=== PATIENT | female | born 1960 | race Two or more races ===

== ENCOUNTER → 2023-05-18 | Emergency (ER) | payer MEDICARE, OTHER ==
[~2023-05-18] VITALS: Ht 157.5 cm; Wt 95.2 kg
[~2023-05-18] MED LIST: PERCOT PO
[2023-05-18 19:30] VITALS: BP 144/76
== END | disposition home or self-care (01) ==
LOC: ER 19:24
DX: G89.29 Other chronic pain (principal); M54.50 Low back pain, unspecified; Z88.2 Allergy status to sulfonamides; Z76.0 Encounter for issue of repeat prescription

== ENCOUNTER 2024-07-05 20:14 | Inpatient (IN) | payer MEDICARE, OTHER ==
[~2024-07-05] VITALS: Ht 157.5 cm; Wt 102.0 kg
[2024-07-05 21:00] VITALS: PULSE 101; RESP 11; O2SAT 100
[2024-07-05 21:16] LABS: Hemoglobin 13.9 g/dL (12.2-16.2); Monocytes # (auto) 0.8 10 ^3/uL (0-1.3); Nucleated Red Blood Cells % 0.1 %
[2024-07-05 21:18] LABS: Basophils # (auto) 0.3 10 ^3/uL (0-0.2); Basophils % (auto) 2.2 % (0.0-2.0); Eosinophils # (auto) 0.3 10 ^3/uL (0-0.8); Eosinophils % (auto) 2.1 % (0.0-7.0); Hematocrit 41.6 % (36.0-46.0); Lymphocytes # (auto) 3.3 10 ^3/uL (0.4-5.4); Lymphocytes % (auto) 25.2 % (10.0-50.0); Mean Corpuscular Hemoglobin 26.4 pg (28.0-32.0); Mean Corpuscular Hgb Conc. 33.5 g/dL (32.0-36.0); Mean Corpuscular Volume 78.7 fL (80.0-100.0); Monocytes % (auto) 6.1 % (0.0-12.0); Neutrophils # (auto) 8.5 10 ^3/uL (1.6-8.6); Neutrophils % (auto) 64.4 % (37.0-80.0); Red Blood Cells 5.28 10^6/uL (4.0-5.20); Red Cell Distribution Width 15.5 % (11.8-14.3); White Blood Cell 13.3 10^3/uL (4.4-10.8)
[2024-07-05 21:36] LABS: Alanine Aminotransferase 26 U/L (7-40); Albumin 4.2 g/dL (3.2-4.8); Alkaline Phosphatase 210 U/L (46-116); Anion Gap 13 (5-15); Aspartate Aminotransferase 18 U/L (13-40); BUN/Creatinine Ratio 12.2 (10.0-20.0); Blood Urea Nitrogen 19 mg/dL (9-23); Carbon Dioxide 19 mmol/L (20-30); Chloride 104 mmol/L (98-107); Glucose 210 mg/dL (74-106); Potassium 3.5 mmol/L (3.5-5.1); Sodium 136 mmol/L (136-145)
[2024-07-05] MEDS: FUROSEMIDE 40 MG/4 ML VIAL IV ONE (21:36)
[2024-07-05 21:37] LABS: Bilirubin, Total 0.3 mg/dL (0.2-1.0); Total Protein 6.6 g/dL (5.7-8.2)
[2024-07-05] MEDS: ALBUTEROL SULF 2.5 MG/0.5ML(0.5%) NEB SOLN NEB ONE (22:23)
[2024-07-05] MEDS ORDERED: DEXTROSE (50%) 50ML SYRG IV PRN (23:00)
[2024-07-05] MEDS: cefTRIAXone 1GM/50ML D5W 50 ML IV ONE (23:00)
[2024-07-05] MEDS ORDERED: DOCUSATE SOD 100 MG CAP PO PRN (23:00)
[2024-07-05] MEDS ORDERED: ONDANSETRON HCL 4 MG/2 ML VIAL IV PRN (23:00)
[2024-07-06] VITALS (14 sets, daily range): BP systolic 101–191; BP diastolic 53–130; PULSE 76–108; RESP 17–20; TEMP 97.6–98.6; O2SAT 95–99
[2024-07-06] MEDS ORDERED: NITROGLYCERIN 0.4 MG SL TAB SL PRN
[2024-07-06] MEDS: hydrALAZINE HCL 20 MG/ML VL IV PRN (00:05)
[2024-07-06] MEDS: InsuLIN REG 1unit/0.01ml Soln (100units/ml) SC ONE (00:19)
[2024-07-06] MEDS: HYDROcodone-ACET 5/325MG TAB PO PRN (01:31)
[2024-07-06] MEDS: amLODIPine BESYLATE 5 MG TAB PO ONE (01:31)
[2024-07-06] MEDS: methylPREDNISolone SOD SUCC 125 MG/2 ML VL IV ONE (01:32)
[2024-07-06] MEDS: cloNIDine HCL 0.1 MG TAB PO PRN (02:09)
[2024-07-06 05:29] LABS: Basophils # (auto) 0.1 10 ^3/uL (0-0.2); Eosinophils # (auto) 0 10 ^3/uL (0-0.8); Eosinophils % (auto) 0.1 % (0.0-7.0); Hematocrit 39.3 % (36.0-46.0); Hemoglobin 13.3 g/dL (12.2-16.2); Monocytes # (auto) 0.3 10 ^3/uL (0-1.3); Red Blood Cells 5.04 10^6/uL (4.0-5.20)
[2024-07-06 05:32] LABS: Basophils % (auto) 0.7 % (0.0-2.0); Lymphocytes # (auto) 1.2 10 ^3/uL (0.4-5.4); Mean Corpuscular Hemoglobin 26.3 pg (28.0-32.0); Mean Corpuscular Hgb Conc. 33.8 g/dL (32.0-36.0); Mean Corpuscular Volume 77.9 fL (80.0-100.0); Monocytes % (auto) 2.3 % (0.0-12.0); Neutrophils # (auto) 10.8 10 ^3/uL (1.6-8.6); Neutrophils % (auto) 86.9 % (37.0-80.0); Red Cell Distribution Width 15.1 % (11.8-14.3); White Blood Cell 12.5 10^3/uL (4.4-10.8)
[2024-07-06 05:53] LABS: Alanine Aminotransferase 18 U/L (7-40); Albumin 3.8 g/dL (3.2-4.8); Alkaline Phosphatase 175 U/L (46-116); Anion Gap 12 (5-15); Aspartate Aminotransferase 16 U/L (13-40); BUN/Creatinine Ratio 9.8 (10.0-20.0); Bilirubin, Total 0.3 mg/dL (0.2-1.0); Blood Urea Nitrogen 16 mg/dL (9-23); Calcium 9.4 mg/dL (8.7-10.4); Carbon Dioxide 19 mmol/L (20-30); Chloride 104 mmol/L (98-107); Glucose 205 mg/dL (74-106); Potassium 3.5 mmol/L (3.5-5.1); Sodium 135 mmol/L (136-145); Total Protein 6.4 g/dL (5.7-8.2)
[2024-07-06] MEDS: SODIUM CHLOR 0.9% PF (SALINE LOCK) 10ML VIAL/SYR IV SCH (06:10)
[2024-07-06] MEDS: ACCU-CHEK COMFORT CURVE STRIP VI SCH (06:18)
[2024-07-06] MEDS: InsuLIN REG 1unit/0.01ml Soln (100units/ml) SC SCH ×2 (06:21→22:11)
[2024-07-06] MEDS: amLODIPine BESYLATE 5 MG TAB PO SCH (10:06)
[2024-07-06] MEDS: METOPROLOL TARTRATE 25 MG TAB PO SCH (10:06)
[2024-07-06] MEDS: FUROSEMIDE 40 MG/4 ML VIAL IV SCH (10:07)
[2024-07-06] MEDS: FAMOTIDINE (10MG/ML) 2ML VL IV SCH (15:10)
[2024-07-06] MEDS: predniSONE 20 MG TAB PO SCH (22:00)
[2024-07-06] MEDS ORDERED: methylPREDNISolone SOD SUCC 40 MG/ML VL IV SCH (22:00)
[2024-07-06] MEDS: OXYCODONE W/ ACETAMINOPHEN 5/325MG TABLET PO PRN (22:00)
[2024-07-06] MEDS: cefTRIAXone 1GM/50ML D5W 50 ML IV SCH (22:07)
[2024-07-07] VITALS (14 sets, daily range): BP systolic 134–188; BP diastolic 59–101; PULSE 71–102; RESP 15–18; TEMP 97.6–99; O2SAT 95–100
[2024-07-07] MEDS: BUDESONIDE (INHALATION) 0.5 MG/2 ML NEB NEB SCH (01:27)
[2024-07-07] MEDS: ALBUTEROL SULF 2.5 MG/0.5ML(0.5%) NEB SOLN NEB PRN (01:27)
[2024-07-07] MEDS: MORPHINE SULFATE INJ 2 MG/ml SYRG IV PRN (04:33)
[2024-07-07 07:19] LABS: Alanine Aminotransferase 16 U/L (7-40); Albumin 3.2 g/dL (3.2-4.8); Alkaline Phosphatase 148 U/L (46-116); Aspartate Aminotransferase 17 U/L (13-40); BUN/Creatinine Ratio 10.4 (10.0-20.0); Blood Urea Nitrogen 20 mg/dL (9-23); Glucose 293 mg/dL (74-106)
[2024-07-07 07:20] LABS: Bilirubin, Total 0.2 mg/dL (0.2-1.0); Total Protein 5.6 g/dL (5.7-8.2)
[2024-07-07 07:29] LABS: Chloride 103 mmol/L (98-107); Potassium 4.7 mmol/L (3.5-5.1); Sodium 131 mmol/L (136-145)
[2024-07-07 07:31] LABS: Anion Gap 10 (5-15); Carbon Dioxide 18 mmol/L (20-30)
[2024-07-07 07:32] LABS: Calcium 8.5 mg/dL (8.7-10.4)
[2024-07-07 08:48] LABS: Basophils # (auto) 0 10 ^3/uL (0-0.2); Eosinophils # (auto) 0 10 ^3/uL (0-0.8); Monocytes # (auto) 0.4 10 ^3/uL (0-1.3)
[2024-07-07 08:50] LABS: Basophils % (auto) 0.3 % (0.0-2.0); Hematocrit 33.1 % (36.0-46.0); Lymphocytes % (auto) 18.9 % (10.0-50.0); Mean Corpuscular Hgb Conc. 33.4 g/dL (32.0-36.0); Mean Corpuscular Volume 81.1 fL (80.0-100.0); Monocytes % (auto) 3.9 % (0.0-12.0); Neutrophils % (auto) 76.9 % (37.0-80.0); Nucleated Red Blood Cells % 0.1 %; Red Blood Cells 4.08 10^6/uL (4.0-5.20); Red Cell Distribution Width 15.6 % (11.8-14.3); White Blood Cell 10.4 10^3/uL (4.4-10.8)
[2024-07-07] MEDS: ACETAMINOPHEN 325 MG TAB PO PRN (08:50)
[2024-07-07] MEDS ORDERED: VENL75CA78 PO (11:43)
[2024-07-07] MEDS ORDERED: MEMA1TAB5 PO (11:43)
[2024-07-07] MEDS ORDERED: OMEP20TA PO (11:43)
[2024-07-07] MEDS ORDERED: ATOR20TA50 PO (11:43)
[2024-07-07] MEDS ORDERED: PRAM0.373 PO (11:43)
[2024-07-07] MEDS ORDERED: LEFL20TA PO (11:43)
[2024-07-07] MEDS ORDERED: METO-289 PO (11:43)
[2024-07-07] MEDS ORDERED: RIVA10TA PO (11:43)
[2024-07-07] MEDS ORDERED: CHOL20007 PO (11:43)
[2024-07-07] MEDS ORDERED: FINE10TA PO (11:43)
[2024-07-07] MEDS ORDERED: HYDR-3682 PO (11:43)
[2024-07-07] MEDS ORDERED: APRE30TA PO (11:43)
[2024-07-07] MEDS ORDERED: VENL150C58 PO (11:43)
[2024-07-07] MEDS ORDERED: QUET50TA PO (11:43)
[2024-07-07] MEDS ORDERED: FURO80TA3 PO (11:43)
[2024-07-07] MEDS ORDERED: AMLO1TAB23 PO (11:43)
[2024-07-07] MEDS ORDERED: ESTR0.3T PO (11:43)
[2024-07-07] MEDS ORDERED: DEXTROSE (50%) 50ML SYRG IV PRN (17:00)
[2024-07-07] MEDS: ACCU-CHEK COMFORT CURVE STRIP VI SCH (17:02)
[2024-07-07] MEDS: InsuLIN REG 1unit/0.01ml Soln (100units/ml) SC SCH ×2 (17:03→21:28)
[2024-07-07] MEDS ORDERED: HYDRX10T PO (17:28)
[2024-07-07] MEDS ORDERED: OXYC325T14 PO (17:28)
[2024-07-07] MEDS ORDERED: ERGO1CAP12 PO (17:28)
[2024-07-07] MEDS ORDERED: CHLO25TA2 PO (17:36)
[2024-07-07] MEDS ORDERED: HYDR50TA47 PO (17:36)
[2024-07-07] MEDS ORDERED: POTA-220 PO (17:36)
[2024-07-07] MEDS ORDERED: GABA-1250 PO (17:36)
[2024-07-08] VITALS (9 sets, daily range): BP systolic 131–162; BP diastolic 60–99; PULSE 59–100; RESP 15–20; TEMP 97.9–98.2; O2SAT 95–100
[2024-07-08] MEDS: ACCU-CHEK COMFORT CURVE STRIP VI SCH (00:21)
[2024-07-08] MEDS: InsuLIN REG 1unit/0.01ml Soln (100units/ml) SC SCH (00:26)
[2024-07-08 06:46] LABS: Basophils # (auto) 0.1 10 ^3/uL (0-0.2); Eosinophils # (auto) 0.2 10 ^3/uL (0-0.8); Eosinophils % (auto) 1.5 % (0.0-7.0); Red Cell Distribution Width 15.9 % (11.8-14.3)
[2024-07-08 06:49] LABS: Basophils % (auto) 0.7 % (0.0-2.0); Hematocrit 36.6 % (36.0-46.0); Lymphocytes # (auto) 4.9 10 ^3/uL (0.4-5.4); Lymphocytes % (auto) 37.3 % (10.0-50.0); Mean Corpuscular Hemoglobin 26.3 pg (28.0-32.0); Mean Corpuscular Hgb Conc. 32.9 g/dL (32.0-36.0); Mean Corpuscular Volume 80.1 fL (80.0-100.0); Monocytes % (auto) 7.6 % (0.0-12.0); Neutrophils % (auto) 52.9 % (37.0-80.0); Nucleated Red Blood Cells % 0.2 %; Red Blood Cells 4.57 10^6/uL (4.0-5.20); White Blood Cell 13.2 10^3/uL (4.4-10.8)
[2024-07-08 06:51] LABS: Alanine Aminotransferase 20 U/L (7-40); Albumin 3.5 g/dL (3.2-4.8); Alkaline Phosphatase 152 U/L (46-116); Anion Gap 10 (5-15); Aspartate Aminotransferase 13 U/L (13-40); BUN/Creatinine Ratio 15.6 (10.0-20.0); Blood Urea Nitrogen 27 mg/dL (9-23); Calcium 8.8 mg/dL (8.7-10.4); Carbon Dioxide 23 mmol/L (20-30); Chloride 105 mmol/L (98-107); Glucose 106 mg/dL (74-106); Potassium 3.6 mmol/L (3.5-5.1); Sodium 138 mmol/L (136-145)
[2024-07-08 06:52] LABS: Bilirubin, Total 0.2 mg/dL (0.2-1.0); Total Protein 6.2 g/dL (5.7-8.2)
[2024-07-08] MEDS ORDERED: PRED20TA2 PO (11:49)
[2024-07-08] MEDS ORDERED: AUG875T PO (11:49)
[2024-07-09] MEDS ORDERED: PATIENTS OWN MEDICATION PO SCH (10:00)
== END 2024-07-08 19:50 | disposition home or self-care (01) | DRG 177 ==
LOC: ER 20:14 → EDBD 20:14 → TELE 23:57 → TELE-WESTW 07-06 05:35
PROVIDERS: ADMIT Internal Medicine; ATTEND Internal Medicine
DX: J15.69 Pneumonia due to other Gram-negative bacteria (principal); I50.33 Acute on chronic diastolic (congestive) heart failure; N17.0 Acute kidney failure with tubular necrosis; J44.1 Chronic obstructive pulmonary disease with (acute) exacerbation; E87.1 Hypo-osmolality and hyponatremia; Z68.41 Body mass index [BMI] 40.0-44.9, adult; E87.20 Acidosis, unspecified; I16.1 Hypertensive emergency; J44.0 Chronic obstructive pulmonary disease with (acute) lower respiratory infection; J15.9 Unspecified bacterial pneumonia; E11.65 Type 2 diabetes mellitus with hyperglycemia; E66.01 Morbid (severe) obesity due to excess calories; I11.0 Hypertensive heart disease with heart failure; I27.20 Pulmonary hypertension, unspecified; G25.81 Restless legs syndrome; G47.33 Obstructive sleep apnea (adult) (pediatric); Z88.2 Allergy status to sulfonamides; Z88.7 Allergy status to serum and vaccine; Z88.3 Allergy status to other anti-infective agents
CPT/HCPCS: 36415; 71045; 78582; 80053; 82962; 83036; 83880; 84484; 85025; 85379; 93005; 93306; 93970; 94640; 96374; G0378; J1815; J3490

== ENCOUNTER 2024-09-17 10:58 | Inpatient (IN) | payer MEDICARE, OTHER ==
[~2024-09-17] VITALS: Ht 167.6 cm; Wt 92.2 kg
[~2024-09-17 10:58] MED LIST changes: +AMLO1TAB23 PO; +APRE30TA PO; +ATOR20TA50 PO; +AUG875T PO; +CHLO25TA2 PO; +ERGO1CAP12 PO; +ESTR0.3T PO; +FINE10TA PO; +FURO80TA3 PO; +GABA-1250 PO; +HYDR50TA47 PO; +HYDRX10T PO; +LEFL20TA PO; +MEMA1TAB5 PO; +METO-289 PO; +OMEP20TA PO; +OXYC325T14 PO; -PERCOT PO; +POTA-220 PO; +PRAM0.373 PO; +PRED20TA2 PO; +QUET50TA PO; +RIVA10TA PO; +VENL150C58 PO; +VENL75CA78 PO
[2024-09-17] MEDS: SODIUM CHLORIDE 0.9% 1,000 ML IV ONE (11:19)
[2024-09-17] MEDS: SODIUM CHLORIDE 0.9% 1,000 ML IVB ONE (11:19)
[2024-09-17] MEDS: InsuLIN REG 1unit/0.01ml Soln (100units/ml) IV ONE (11:40)
[2024-09-17 11:46] LABS: Basophils # (auto) 0.1 10 ^3/uL (0-0.2); Basophils % (auto) 1.2 % (0.0-2.0); Chloride 95 mmol/L (98-107); Eosinophils # (auto) 0.1 10 ^3/uL (0-0.8); Eosinophils % (auto) 1.5 % (0.0-7.0); Hematocrit 37.4 % (36.0-46.0); Hemoglobin 12.3 g/dL (12.2-16.2); Lymphocytes # (auto) 2.3 10 ^3/uL (0.4-5.4); Lymphocytes % (auto) 23.8 % (10.0-50.0); Mean Corpuscular Hgb Conc. 32.8 g/dL (32.0-36.0); Mean Corpuscular Volume 79.3 fL (80.0-100.0); Monocytes # (auto) 0.7 10 ^3/uL (0-1.3); Monocytes % (auto) 7.4 % (0.0-12.0); Neutrophils # (auto) 6.5 10 ^3/uL (1.6-8.6); Neutrophils % (auto) 66.1 % (37.0-80.0); Platelet Count (auto) 633 10^3/uL (140-450); Potassium 3.9 mmol/L (3.5-5.1); Red Blood Cells 4.71 10^6/uL (4.0-5.20); Red Cell Distribution Width 14.8 % (11.8-14.3); Sodium 122 mmol/L (136-145); White Blood Cell 9.9 10^3/uL (4.4-10.8)
[2024-09-17 11:47] LABS: Anion Gap 13 (5-15); Carbon Dioxide 14 mmol/L (20-31)
[2024-09-17 11:48] LABS: Calcium 9.4 mg/dL (8.7-10.4)
[2024-09-17 11:53] LABS: BUN/Creatinine Ratio 22.5 (10.0-20.0); Blood Alcohol < 3.0 mg/dL (<10); Blood Urea Nitrogen 46 mg/dL (9-23)
[2024-09-17 11:58] LABS: Glucose 622 mg/dL (74-106)
[2024-09-17 12:29] LABS: Base Excess -6.2 mmol/L (-2.0-3.0)
[2024-09-17] MEDS ORDERED: DEXTROSE (50%) 50ML SYRG IV PRN ×3 (13:00→14:30)
[2024-09-17] MEDS ORDERED: INSULIN DRIP 100 UNIT/100ML 100 ML IV SCH (13:15)
[2024-09-17] MEDS: INSULIN LANTUS (GLARGINE) 1 /0.01ml (100units/ml) SC ONE ×2 (13:25→14:56)
[2024-09-17] MEDS ORDERED: ERGOCALCIFEROL 50,000 UNIT(1.25MG) CAP PO SCH (13:30)
[2024-09-17] MEDS ORDERED: ACCU-CHEK COMFORT CURVE STRIP VI SCH (13:30)
[2024-09-17] MEDS ORDERED: DOCUSATE SOD 100 MG CAP PO PRN (13:30)
[2024-09-17] MEDS: ACCU-CHEK COMFORT CURVE STRIP VI SCH ×2 (13:37→17:14)
[2024-09-17] MEDS: INSULIN DRIP 100 UNIT/100ML 100 ML IV SCH (14:05)
[2024-09-17] MEDS: SODIUM CHLORIDE 0.9% 500 ML IV ONE (14:16)
[2024-09-17 14:37] LABS: Chloride 98 mmol/L (98-107); Potassium 3.9 mmol/L (3.5-5.1); Sodium 126 mmol/L (136-145)
[2024-09-17 14:38] LABS: Anion Gap 12 (5-15); Carbon Dioxide 16 mmol/L (20-31)
[2024-09-17 14:39] LABS: Calcium 9.5 mg/dL (8.7-10.4)
[2024-09-17 14:48] LABS: Blood Urea Nitrogen 36 mg/dL (9-23)
[2024-09-17 14:52] LABS: Glucose 480 mg/dL (74-106)
[2024-09-17] MEDS: SODIUM CHLOR 0.9% PF (SALINE LOCK) 10ML VIAL/SYR IV SCH (14:54)
[2024-09-17] MEDS: hydrOXYzine HCL 10 MG TAB PO SCH (15:25)
[2024-09-17] MEDS: hydrALAZINE HCL 20 MG/ML VL IV PRN (15:33)
[2024-09-17] MEDS: HYDROmorphone HCL 2 MG/ML VL/or syr IV PRN (16:27)
[2024-09-17 16:45] LABS: Urine Bacteria FEW /hpf (None Seen); Urine Blood Negative /uL (Negative); Urine Clarity Clear (Clear); Urine Color Light-Yellow (Yellow); Urine Mucus FEW (None Seen); Urine Protein, UAD Negative (Negative); Urine Specific Gravity 1.012 (1.001-1.035); Urine Urobilinogen 2 mg/dL (Negative); Urine WBC <1 /hpf (0 - 5)
[2024-09-17 17:00] VITALS: RESP 20; O2SAT 100
[2024-09-17 17:26] LABS: Chloride 100 mmol/L (98-107); Potassium 3.5 mmol/L (3.5-5.1); Sodium 127 mmol/L (136-145)
[2024-09-17 17:27] LABS: Anion Gap 12 (5-15); Carbon Dioxide 15 mmol/L (20-31)
[2024-09-17 17:28] LABS: Calcium 9.5 mg/dL (8.7-10.4)
[2024-09-17] MEDS: InsuLIN REG 1unit/0.01ml Soln (100units/ml) SC SCH ×2 (17:30→21:48)
[2024-09-17 17:32] LABS: BUN/Creatinine Ratio 16.7 (10.0-20.0); Blood Urea Nitrogen 34 mg/dL (9-23)
[2024-09-17] MEDS: PANTOPRAZOLE 40 MG TAB PO SCH (17:33)
[2024-09-17 18:29] LABS: Glucose 462 mg/dL (74-106)
[2024-09-17 19:38] VITALS: PULSE 103; RESP 25; O2SAT 99
[2024-09-17 21:03] LABS: Chloride 105 mmol/L (98-107); Potassium 3.1 mmol/L (3.5-5.1); Sodium 131 mmol/L (136-145)
[2024-09-17 21:04] LABS: Anion Gap 11 (5-15); Carbon Dioxide 15 mmol/L (20-31)
[2024-09-17 21:05] LABS: Calcium 9.1 mg/dL (8.7-10.4)
[2024-09-17 21:09] LABS: Glucose 379 mg/dL (74-106)
[2024-09-17 21:10] LABS: BUN/Creatinine Ratio 15.8 (10.0-20.0); Blood Urea Nitrogen 33 mg/dL (9-23)
[2024-09-17] MEDS: hydrALAZINE HCL 25 MG TAB PO SCH (21:54)
[2024-09-17] MEDS: MEMANTINE HCL 5 MG TAB PO SCH (21:54)
[2024-09-17] MEDS: APREMILAST BASE 30 MG PO SCH (22:00)
[2024-09-17] MEDS ORDERED: PATIENTS OWN MEDICATION (Omeprazole (Gnp Omeprazole) 20 MG) PO SCH (22:00)
[2024-09-17] MEDS: INSULIN LANTUS (GLARGINE) 1 /0.01ml (100units/ml) SC SCH (22:12)
[2024-09-17] MEDS: HYDROcodone-ACET 5/325MG TAB PO PRN (22:57)
[2024-09-18] VITALS (9 sets, daily range): BP systolic 137–167; BP diastolic 63–79; PULSE 80–109; RESP 18–22; TEMP 97.6–98.3; O2SAT 93–99
[2024-09-18 01:14] LABS: Chloride 107 mmol/L (98-107); Potassium 2.9 mmol/L (3.5-5.1); Sodium 131 mmol/L (136-145)
[2024-09-18 01:16] LABS: Anion Gap 9 (5-15); Calcium 9.1 mg/dL (8.7-10.4); Carbon Dioxide 15 mmol/L (20-31)
[2024-09-18 01:21] LABS: BUN/Creatinine Ratio 16.5 (10.0-20.0); Blood Urea Nitrogen 31 mg/dL (9-23); Glucose 240 mg/dL (74-106)
[2024-09-18] MEDS: FUROSEMIDE 40 MG TAB PO SCH (06:15)
[2024-09-18 06:32] LABS: Anion Gap 10 (5-15); Carbon Dioxide 15 mmol/L (20-31); Chloride 104 mmol/L (98-107); Potassium 3.5 mmol/L (3.5-5.1); Sodium 129 mmol/L (136-145)
[2024-09-18 06:38] LABS: BUN/Creatinine Ratio 13.5 (10.0-20.0); Blood Urea Nitrogen 27 mg/dL (9-23); Glucose 298 mg/dL (74-106)
[2024-09-18 07:22] LABS: Basophils # (auto) 0.1 10 ^3/uL (0-0.2); Nucleated Red Blood Cells % 0.2 %
[2024-09-18 07:26] LABS: Basophils % (auto) 0.7 % (0.0-2.0); Eosinophils # (auto) 0.2 10 ^3/uL (0-0.8); Eosinophils % (auto) 1.7 % (0.0-7.0); Hematocrit 35.6 % (36.0-46.0); Lymphocytes % (auto) 22.6 % (10.0-50.0); Mean Corpuscular Hemoglobin 27.2 pg (28.0-32.0); Mean Corpuscular Hgb Conc. 33.8 g/dL (32.0-36.0); Mean Corpuscular Volume 80.6 fL (80.0-100.0); Monocytes # (auto) 1.5 10 ^3/uL (0-1.3); Monocytes % (auto) 11.2 % (0.0-12.0); Neutrophils # (auto) 8.4 10 ^3/uL (1.6-8.6); Neutrophils % (auto) 63.8 % (37.0-80.0); Platelet Count (auto) 566 10^3/uL (140-450); Red Blood Cells 4.41 10^6/uL (4.0-5.20); Red Cell Distribution Width 14.9 % (11.8-14.3); White Blood Cell 13.1 10^3/uL (4.4-10.8)
[2024-09-18] MEDS: RIVAROXABAN 10 MG TAB PO SCH (09:49)
[2024-09-18] MEDS: amLODIPine BESYLATE 5 MG TAB PO SCH (09:49)
[2024-09-18] MEDS: METOPROLOL SUCCINATE XL 50 MG TAB PO SCH (09:50)
[2024-09-18] MEDS: ACETAMINOPHEN 325 MG TAB PO PRN (09:50)
[2024-09-18] MEDS: ATORVASTATIN 20 MG TAB PO SCH (09:50)
[2024-09-18] MEDS: PRAMIPEXOLE DIHYDROCHLORIDE MO 0.25 MG TAB PO SCH (09:51)
[2024-09-18] MEDS ORDERED: INSULIN LANTUS (GLARGINE) 1 /0.01ml (100units/ml) SC SCH (10:00)
[2024-09-18] MEDS: LEFLUNOMIDE 10 MG PO SCH (10:00)
[2024-09-18] MEDS: SODIUM CHLORIDE 0.9% 1,000 ML IV ONE ×2 (11:00)
[2024-09-18] MEDS: ONDANSETRON HCL 4 MG/2 ML VIAL IV PRN (14:24)
[2024-09-18] MEDS: POTASSIUM CHL 20 Meq TABLET PO ONE (14:25)
[2024-09-18] MEDS: SODIUM BICARBONATE 650 MG TAB PO SCH (14:25)
[2024-09-18] MEDS: INSULIN LANTUS (GLARGINE) 1 /0.01ml (100units/ml) SC SCH (21:00)
[2024-09-19 01:00] VITALS: BP 174/78; PULSE 85; RESP 20; TEMP 98; O2SAT 96
[2024-09-19 05:00] VITALS: BP 139/72; PULSE 92; RESP 20; TEMP 97.8; O2SAT 97
[2024-09-19 06:41] LABS: Alanine Aminotransferase 11 U/L (7-40); Albumin 3.6 g/dL (3.2-4.8); Alkaline Phosphatase 151 U/L (46-116); Anion Gap 8 (5-15); Aspartate Aminotransferase 9 U/L (13-40); BUN/Creatinine Ratio 12.7 (10.0-20.0); Blood Urea Nitrogen 25 mg/dL (9-23); Calcium 8.9 mg/dL (8.7-10.4); Carbon Dioxide 18 mmol/L (20-31); Chloride 106 mmol/L (98-107); Glucose 268 mg/dL (74-106); Potassium 3.4 mmol/L (3.5-5.1); Sodium 132 mmol/L (136-145)
[2024-09-19 06:42] LABS: Bilirubin, Total 0.2 mg/dL (0.2-1.0); Total Protein 6.1 g/dL (5.7-8.2)
[2024-09-19 06:47] LABS: Basophils # (auto) 0.1 10 ^3/uL (0-0.2); Eosinophils # (auto) 0.3 10 ^3/uL (0-0.8); Lymphocytes # (auto) 2.7 10 ^3/uL (0.4-5.4); Lymphocytes % (auto) 27.4 % (10.0-50.0); Neutrophils # (auto) 6.1 10 ^3/uL (1.6-8.6)
[2024-09-19 06:50] LABS: Basophils % (auto) 0.7 % (0.0-2.0); Eosinophils % (auto) 3.2 % (0.0-7.0); Hematocrit 34.3 % (36.0-46.0); Hemoglobin 11.8 g/dL (12.2-16.2); Mean Corpuscular Hemoglobin 26.7 pg (28.0-32.0); Mean Corpuscular Hgb Conc. 34.4 g/dL (32.0-36.0); Mean Corpuscular Volume 77.7 fL (80.0-100.0); Monocytes # (auto) 0.8 10 ^3/uL (0-1.3); Neutrophils % (auto) 60.7 % (37.0-80.0); Platelet Count (auto) 605 10^3/uL (140-450); Red Blood Cells 4.41 10^6/uL (4.0-5.20); Red Cell Distribution Width 15.5 % (11.8-14.3)
[2024-09-19 08:00] VITALS: PULSE 74; PULSE 94; RESP 16; O2SAT 98
[2024-09-19 09:00] VITALS: BP 152/71; PULSE 94; RESP 16; TEMP 98; O2SAT 98
[2024-09-19] MEDS: POTASSIUM EFFERVESENT TAB 25 MEQ PO ONE (09:53)
[2024-09-19 10:23] VITALS: BP 152/71; PULSE 94; RESP 16; TEMP 98; O2SAT 98
[2024-09-19 13:00] VITALS: BP 147/84; PULSE 90; RESP 18; TEMP 98.6; O2SAT 96
== END 2024-09-19 12:18 | disposition home or self-care (01) | DRG 637 ==
LOC: EDBD 10:58 → ER 10:58 → TELE 13:17 → TELE-WESTW 23:47
PROVIDERS: ADMIT Internal Medicine; ATTEND Nurse Practitioner Acute Care
DX: E11.10 Type 2 diabetes mellitus with ketoacidosis without coma (principal); G93.41 Metabolic encephalopathy; I50.33 Acute on chronic diastolic (congestive) heart failure; N17.0 Acute kidney failure with tubular necrosis; E87.1 Hypo-osmolality and hyponatremia; I13.0 Hypertensive heart and chronic kidney disease with heart failure and stage 1 through stage 4 chronic kidney disease, or unspecified chronic kidney disease; E87.4 Mixed disorder of acid-base balance; E11.22 Type 2 diabetes mellitus with diabetic chronic kidney disease; N18.32 Chronic kidney disease, stage 3b; J44.9 Chronic obstructive pulmonary disease, unspecified; E66.01 Morbid (severe) obesity due to excess calories; I16.0 Hypertensive urgency; E86.0 Dehydration; Z88.0 Allergy status to penicillin; Z88.3 Allergy status to other anti-infective agents; Z88.7 Allergy status to serum and vaccine; Z91.199 Patient's noncompliance with other medical treatment and regimen due to unspecified reason; Z91.048 Other nonmedicinal substance allergy status; Z68.32 Body mass index [BMI] 32.0-32.9, adult
CPT/HCPCS: 36415; 36600; 76775; 80048; 80053; 80320; 81001; 82010; 82570; 82805; 82962; 83036; 83880; 83930; 83935; 84300; 84484; 85025; 87081; 93005; 96361; 96365; 96372; 96375; 99291; G0378; J1815; J2405

== ENCOUNTER 2025-03-31 14:24 | Inpatient (IN) | payer MEDICARE, OTHER ==
[~2025-03-31] VITALS: Ht 152.4 cm; Wt 96.2 kg
[2025-03-31 15:20] LABS: Basophils # (auto) 0.1 10 ^3/uL (0-0.2); Basophils % (auto) 1.3 % (0.0-2.0); Eosinophils # (auto) 0.2 10 ^3/uL (0-0.8); Eosinophils % (auto) 1.6 % (0.0-7.0); Hematocrit 38.2 % (36.0-46.0); Lymphocytes # (auto) 2.3 10 ^3/uL (0.4-5.4); Lymphocytes % (auto) 21.1 % (10.0-50.0); Mean Corpuscular Hemoglobin 26.6 pg (28.0-32.0); Mean Corpuscular Volume 78.4 fL (80.0-100.0); Monocytes # (auto) 0.8 10 ^3/uL (0-1.3); Monocytes % (auto) 7.2 % (0.0-12.0); Neutrophils # (auto) 7.5 10 ^3/uL (1.6-8.6); Neutrophils % (auto) 68.8 % (37.0-80.0); Platelet Count (auto) 476 10^3/uL (140-450); Red Blood Cells 4.87 10^6/uL (4.0-5.20); Red Cell Distribution Width 15.1 % (11.8-14.3); White Blood Cell 10.9 10^3/uL (4.4-10.8)
[2025-03-31 15:25] VITALS: PULSE 76; RESP 24; O2SAT 100
--- NOTE | 2025-03-31 15:25 | ED.PDOC ---
GI ASSESSMENT HPI Comments 64 y/o F, with a history of CHF, CKF III, COPD, DM, DKA, HTN, and medication noncompliance, is BIBA for 2x month history of abdominal pain and distension, nausea, vomiting, and P/O intolerance. Patient is a difficult historian. She reports worsening symptoms following initial onset. Patient states she was seen at [facility] multiple times and was diagnosed with a spine fracture and cellulitis of her abdominal wall prior to being discharged and placed on oral antibiotics which she states she is currently taking. Per EMS report, patient was found hyperglycemic and hypertensive on scene, with water technician reporting that patient has been noncompliant with her medications. For example, pt reportedly finished her 90-day Percocet prescription that was prescribed on 03/16/25. Upon arrival to ED, patient had a blood pressure of 228/123 and a blood glucose of 450. Chief Complaint: Abdominal Pain Time Seen by MD: 14:40 Primary Care Provider: [facility] Reviewed Notes: Nurses Notes, Manager Fund Notes, Medications, Allergies Allergies: Coded Allergies: Clonazepam (Verified Allergy, Unknown, 09/17/24) Lactose (Verified Allergy, Unknown, 09/17/24) Lorazepam (Verified Allergy, Unknown, 05/18/23) Nitrofurantoin (Verified Allergy, Unknown, 09/17/24) Olanzapine (Verified Allergy, Unknown, 05/18/23) Penicillins (Verified Allergy, Unknown, 09/17/24) Sulfa Antibiotics (Verified Allergy, Unknown, 09/17/24) Sulfamethoxazole w/Trimethoprim (Verified Allergy, Unknown, 05/18/23) Uncoded Allergies: ADHESIVE (Allergy, Unknown, 09/17/24) FLU VACCINE (Allergy, Unknown, 05/18/23) TAPE (Allergy, Unknown, 09/17/24) TILACTASE (Allergy, Unknown, 09/17/24) Home Meds Active Scripts Prednisone (Prednisone) 20 Mg Tab, 20 MG PO BID for 5 Days, #10 MG Prov:LANCE [place] RESIDENT 07/08/24 Amoxicillin & Pot Clavulanate (AUGMENTIN TABLET) 875 Mg Tb, 875 MG PO BID for 7 Days, #14 TAB Prov:LANCE [place] RESIDENT 07/08/24 Reported Medications Potassium Chloride (Klor-Con M20) 20 Meq Tab, 1 TAB PO DAILY 07/07/24 Chlorthalidone (Chlorthalidone) 25 Mg Tab, 12.5 MG PO DAILY 07/07/24 Hydralazine Hcl (Hydralazine Hcl) 50 Mg Tab, 1 TAB PO TID 07/07/24 Gabapentin (Gabapentin) 300 Mg Cap, 3 CAP PO TID 07/07/24 Ergocalciferol (Vitamin D) 50,000 Unit Cap, 1 CAP PO QWEEKLY 07/07/24 Hydroxyzine Hcl (Hydroxyzine Hcl) 10 Mg Tab, 2 TAB PO TID 07/07/24 Oxycodone W/ Acetaminophen (Apap/Oxycodone) 1 Tab Tab, 1 TAB PO Q8HR [10/325 MG] 07/07/24 Pramipexole Dihydrochloride (Pramipexole Dihydrochlori) 0.375 Mg Tab, 0.5 MG PO DAILY, TAB 07/07/24 Furosemide (Furosemide) 80 Mg Tab, 80 MG PO QAM, TAB 07/07/24 Leflunomide (Arava) 20 Mg Tab, 10 MG PO DAILY, TAB 07/07/24 Estrogens, Conjugated (PREMARIN TABLET) 0.3 Mg Tb, 1 TAB PO DAILY, #30 TAB 11 Refills 07/07/24 Venlafaxine Hcl (Venlafaxine Hcl Er) 75 Mg Cap, 75 MG PO DAILY, CAP 07/07/24 Venlafaxine Hcl (Venlafaxine Hcl Er) 150 Mg Cap, 150 MG PO QAM, CAP 07/07/24 Rivaroxaban (XARELTO) 10 Mg Tab, 1 TAB PO DAILY, #10 TAB 07/07/24 Finerenone (Kerendia) 10 Mg Tab, 10 MG PO DAILY, TAB 07/07/24 Omeprazole (Gnp Omeprazole) 20 Mg Tab, 20 MG PO BID, TAB 07/07/24 Apremilast Base (Otezla) 30 Mg Tab, 30 MG PO BID, TAB 07/07/24 Metoprolol Succinate (Metoprolol Succinate Er) 50 Mg Tab, 100 MG PO DAILY, TAB 07/07/24 Atorvastatin Calcium (ATORVASTATIN CALCIUM) 20 Mg Tab, 1 TAB PO DAILY, #30 TAB 5 Refills 07/07/24 Memantine Hydrochloride (Memantine HCl) 10 Mg Tab, 10 MG PO BID, TAB 07/07/24 Quetiapine Fumerate (Seroquel) 50 Mg Tab, 150 MG PO, TAB 07/07/24 Amlodipine Besylate (Amlodipine Besylate) 10 Mg Tab, 1 TAB PO DAILY, #30 TAB 5 Refills 07/07/24 Information Source: Patient Mode of Arrival: EMS Timing: Hours Duration: Since onset Prehospital treatment: 12 Lead EKG, Accucheck, Plant Chief Past Medical History PAST MEDICAL HISTORY: CHF, CKF (stage III), COPD, DM, HTN Past Medical History (Other): morbid obesity DKA Surgical History: Denies all surgeries LIGHTOUT EXAMINER History: No Pertinent LIGHTOUT EXAMINER History Family History Family History: Reviewed,noncontributory to illness Social History Smoker: Non-Smoker Alcohol: Denies ETOH Use Drugs: Denies Drug Use Lives In: Home, Assisted Care All Other Systems: Reviewed and Negative (Comprehensive systems review obtained and negative except for what is stated in the HPI.) Physical Exam General Appearance: Mild Distress, Obese HEENT: Other (Pupils and face symmetric. Dry mucous membranes.) Neck: Full Range of Motion, Normal Inspection Respiratory: Lungs Clear, No Accessory Muscle Use, No Respiratory Distress, Normal Breath Sounds Cardiovascular: No JVD, Regular Rate/Rhythm Breast Exam: Deferred Gastrointestinal: Diffuse, Distended, Tenderness Genitalia: Deferred Pelvic: Deferred Rectal: Deferred Extremities: Leg edema, Normal range of motion, Pedal edema Neurologic: Alert (Oriented x4), Normal Affect, Normal Mood Cerebellar Function: NOT DONE Reflexes: NOT DONE Skin: Dry, Normal Color, Warm Lymphatic: NOT DONE Was a procedure done? Was a procedure done?: No GI differential Dx Differential Diagnosis: Bowel Obstruction, Constipation, Diverticular disease, Gastritis/PUD, Gastroenteritis, Inflammatory BD, Pancreatitis, UTI, Dehydration, Diabetes/ DKA, Electrolyte Imbalance, Food Poisoning, Viral, Impaction, Ischemic Bowel, Stress Ulcer, Other (hypertensive emergency, among others ) Other Differential Diagnosis Colitis X-Ray, Labs, Meds, VS Vital Signs Date Time Temp Pulse Resp B/P (MAP) Pulse Ox O2 Delivery O2 Flow Rate FiO2 03/31/25 21:31 184/75 03/31/25 19:49 86 18 98 Room Air* 0 21 03/31/25 19:49 98.0 84 18 180/56 (97) 100 98.0 03/31/25 16:19 74 14 186/80 03/31/25 16:00 73 03/31/25 16:00 73 22 186/80 (115) 100 03/31/25 15:36 76 24 197/72 03/31/25 15:25 76 24 100 Room Air* 0 21 03/31/25 15:24 98.1 76 24 197/72 (113) 100 98.1 03/31/25 14:36 98.4 89 18 228/123 (158) 98 98.4 Lab Test 03/31/25 16:28 03/31/25 15:14 03/31/25 14:56 Range/Units Troponin I High Sensitivity < 3 L < 3 L </=34 ng/L Urine Color Colorless Yellow Urine Clarity Clear Clear Urine pH 7.0 5.0-9.0 Urine Specific [place] 1.005 1.001-1.035 Urine Protein 2+ H Negative Urine Ketones Negative Negative Urine Blood 1+ H Negative /uL Urine Nitrite Negative Negative Urine Bilirubin Negative Negative Urine Urobilinogen Normal Negative mg/dL Urine Leukocyte Esterase Negative Negative /uL Urine RBC <1 0 - 4 /hpf Urine Microscopic WBC 0-5 /HPF Urine Squamous Epithelial Cells None seen <5 /hpf Urine Bacteria None seen None Seen /hpf Urine Glucose 4+ H Normal mg/dL White Blood Count 10.9 H 4.4-10.8 10^3/uL Red Blood Count 4.87 4.0-5.20 10^6/uL Hemoglobin 13.0 12.2-16.2 g/dL Hematocrit 38.2 36.0-46.0 % Mean Corpuscular Volume 78.4 L 80.0-100.0 fL Mean Corpuscular Hemoglobin 26.6 L 28.0-32.0 pg Mean Corpuscular Hemoglobin Concent 34.0 32.0-36.0 g/dL Red Cell Distribution Width 15.1 H 11.8-14.3 % Platelet Count 476 H 140-450 10^3/uL Mean Platelet Volume 7.9 6.9-10.8 fL Neutrophils (%) (Auto) 68.8 37.0-80.0 % Lymphocytes (%) (Auto) 21.1 10.0-50.0 % Monocytes (%) (Auto) 7.2 0.0-12.0 % Eosinophils (%) (Auto) 1.6 0.0-7.0 % Basophils (%) (Auto) 1.3 0.0-2.0 % Neutrophils # (Auto) 7.5 1.6-8.6 10 ^3/uL Lymphocytes # (Auto) 2.3 0.4-5.4 10 ^3/uL Monocytes # (Auto) 0.8 0-1.3 10 ^3/uL Eosinophils # (Auto) 0.2 0-0.8 10 ^3/uL Basophils # (Auto) 0.1 0-0.2 10 ^3/uL Nucleated Red Blood Cells 0.0 % Sodium Level 129 L 136-145 mmol/L Potassium Level 4.2 3.5-5.1 mmol/L Chloride Level 99 98-107 mmol/L Carbon Dioxide Level 23 20-31 mmol/L Anion Gap 7 5-15 Blood Urea Nitrogen 35 H 9-23 mg/dL Creatinine 2.25 H 0.550-1.02 mg/dL Glomerular Filtration Rate Calc 24 >90 mL/min BUN/Creatinine Ratio 15.6 10.0-20.0 Serum Glucose 392 H 74-106 mg/dL Lactic Acid Level 1.8 0.4-2.0 mmol/L Calcium Level 9.1 8.7-10.4 mg/dL Total Bilirubin 0.2 0.2-1.0 mg/dL Aspartate Amino Transferase (AST) 12 L 13-40 U/L Alanine Aminotransferase (ALT) 22 7-40 U/L Alkaline Phosphatase 271 H 46-116 U/L B-Type Natriuretic Peptide 56.01 0-100 pg/mL Total Protein 6.2 5.7-8.2 g/dL Albumin 3.7 3.2-4.8 g/dL Lipase 22 12-53 U/L Current Medications Medications (Trade) Dose Ordered Sig/Patria Route Start Time Stop Time Status Last Admin Ondansetron HCl (Zofran) 4 mg ONCE ONCE IV 03/31/25 14:45 03/31/25 14:56 DC 03/31/25 15:35 Morphine Sulfate 4 mg ONCE ONCE IV 03/31/25 14:45 03/31/25 14:56 DC 03/31/25 15:36 Pantoprazole Sodium (Protonix) 40 mg ONCE ONCE IV 03/31/25 14:45 03/31/25 14:56 DC 03/31/25 15:36 Insulin Human Regular (InsuLIN R) 8 units ONCE ONCE IV 03/31/25 19:45 03/31/25 19:58 DC 03/31/25 21:32 Hydralazine HCl (Apresoline Injection) 10 mg ONCE ONCE IV 03/31/25 19:45 03/31/25 19:58 DC 03/31/25 21:[address] [address] Ph: [phone] DIAGNOSTIC IMAGING Diagnostic Imaging Report : [id number] Signed PATIENT: RAVI LEVINE FACCT: [id number] UNIT: [id number] : 1960 LOC: ER ROOM / BED: / AGE / SEX: 64 / F ADM STATUS: REG ER SERVICE 1440 ORDERING PHYSICIAN: NORMAN PAULINO MD PROCEDURE(s): ABPL - CT AB PEL WO CON-NO ORAL OR IV REASON: low abd pain, n/v unable to tolerate po ORDER NUMBER(s): [id number], ACCESSION NUMBER(s): [id number] Indication: low abd pain, n/v unable to tolerate po Technique: CT axial images of the abdomen and pelvis are obtained without contrast. Coronal and sagittal reformats were obtained. Radiation Dose Information: CTDI volume is 22.23 mGy. Dose-length product is 1279.27 mGy*cm Comparison: None FINDINGS: There is limited interpretation of the abdomen and pelvis without administration of intravenous contrast. Lung bases demonstrate atelectasis. Adrenal glands, spleen unremarkable. Pancreatic parenchymal atrophy / fatty infiltration. Liver unremarkable in shape. No CT evidence for cholelithiasis. The bilateral kidneys demonstrate no hydronephrosis or nephrolithiasis. Stomach is partially distended. Small bowel loops are demonstrating fecal like contents. Few scattered colonic diverticula. Moderate volume stool within the colon. Normal appendix. Abdominal aortic atherosclerotic disease. Bladder is partially distended. No free pelvic fluid. No inguinal lymphadenopathy. [id number] thoracolumbar degenerative disc disease. Thoracic neurostimulator leads. Schmorl's node inferior L3 endplate. Old T11 compression deformity with 20% loss height. IMPRESSION: 1. Small-bowel fecal like contents which could be secondary to ileus/hypomotility. 2. No hydronephrosis/ nephrolithiasis. 3. Other findings as described. ATED BY: REGINALD LINDQUIST MD DICTATED DATE/TIME: 03/31/251552 SIGNED BY: REGINALD LINDQUIST MD SIGNED DATE/TIME: 03/31/251552 CC: X-Ray, Labs, Meds, VS Comment 64 y/o F, with a history of CHF, CKF III, COPD, DM, DKA, HTN, back pain due to spine fracture, brought in by EMS complaining of abdominal pain, nausea, vomiting and worsening back pain Vitals remarkable for BP 228/123 Exam remarkable for diffuse abdominal tenderness and distention Rhythm strip independently interpreted by me: Sinus rhythm, rate 89, no ectopy. CT abdomen and pelvis IMPRESSION: 1. Small-bowel fecal like contents which could be secondary to ileus/hypomotility. 2. No hydronephrosis/ nephrolithiasis. 3. Other findings as described. CBC remarkable for WBC 10.9, CMP remarkable for sodium 129, BUN 35, creatinine 2.75, glucose 392, lipase normal, troponin and BNP normal, UA positive for protein, blood and glucose Patient treated with the following in the ED: Morphine 4 mg IV, Zofran 4 mg IV, 1 L 0.9 normal saline IV bolus, regular insulin 8 units IV, hydralazine 10mg IV On re-evaluation, patient states pain has improved. Vitals were stable. Plan is to admit the patient for blood pressure control, electrolyte correction, glucose correction, emesis control, possible GI evaluation Time of 1ST Reevaluation: 15:10 Reevaluation 1ST: Unchanged Patient Education/Counseling: Diagnosis, Treatment Family Education/Counseling: No Family Present Departure 1 Departure Time of Disposition: 19:51 Impression: Primary Impression: Abdominal pain Qualified Codes: R10.84 - Generalized abdominal pain Additional Impressions: Nausea and vomiting Qualified Codes: R11.2 - Nausea with vomiting, unspecified Paralytic ileus of small intestine Hyperglycemia Hypertensive urgency Hyponatremia Disposition: ADMITTED INPATIENT Admit to: [facility] Condition: Guarded Critical Care Note Critical Care Time?: No Stability Stability form required: No Heart Score Heart Score: Heart Score Response (Comments) Value History N/A 0 EKG N/A 0 Age N/A 0 Risk Factors N/A 0 Troponin N/A 0 Total 0 I personally scribed for NORMAN PAULINO MD ([email or web address]) on 03/31/25 at 15:25. Electronically submitted by Yifan Hernandez ([email or web address]). I personally scribed for NORMAN PAULINO MD ([email or web address]) on 03/31/25 at 15:27. Electronically submitted by Yifan Hernandez ([email or web address]). I personally scribed for NORMAN PAULINO MD ([email or web address]) on 03/31/25 at 16:59. Electronically submitted by Yifan Hernandez ([email or web address]). NORMAN PAULINO MD March 31, 2025 15:25
[2025-03-31 15:28] LABS: Urine Bacteria None Seen /hpf (None Seen)
[2025-03-31 15:32] LABS: Alanine Aminotransferase 22 U/L (7-40); Albumin 3.7 g/dL (3.2-4.8); Anion Gap 7 (5-15); BUN/Creatinine Ratio 15.6 (10.0-20.0); Calcium 9.1 mg/dL (8.7-10.4); Carbon Dioxide 23 mmol/L (20-31); Chloride 99 mmol/L (98-107); Lipase 22 U/L (12-53); Potassium 4.2 mmol/L (3.5-5.1); Total Protein 6.2 g/dL (5.7-8.2)
[2025-03-31 15:33] LABS: Alkaline Phosphatase 271 U/L (46-116); Aspartate Aminotransferase 12 U/L (13-40); Bilirubin, Total 0.2 mg/dL (0.2-1.0); Blood Urea Nitrogen 35 mg/dL (9-23); Glucose 392 mg/dL (74-106); Sodium 129 mmol/L (136-145)
[2025-03-31] MEDS: ONDANSETRON HCL 4 MG/2 ML VIAL IV ONE (15:35)
[2025-03-31] MEDS: MORPHINE SULFATE 4 MG/ML SYR/VIAL IV ONE (15:36)
[2025-03-31] MEDS: PANTOPRAZOLE 40 MG/10 ML VIAL INJ IV ONE (15:36)
[2025-03-31 15:54] LABS: Urine Blood 1+ /uL (Negative); Urine Clarity Clear (Clear); Urine Color Colorless (Yellow); Urine Protein, UAD 2+ (Negative); Urine Specific Gravity 1.005 (1.001-1.035); Urine Squamous Epithelial Cell None Seen /hpf (<5); Urine Urobilinogen Normal (Negative)
--- NOTE | 2025-03-31 15:55 | DVH ---
Indication: low abd pain, n/v unable to tolerate po Technique: CT axial images of the abdomen and pelvis are obtained without contrast. Coronal and sagit [place] reformats were obtained. Radiation Dose Information: CTDI volume is 22.23 mGy. Dose-length product is 1279.27 mGy*cm Comparison: None FINDINGS: There is limited interpretation of the abdomen and pelvis without administration of intravenous contr ast. Lung bases demonstrate atelectasis. Adrenal glands, spleen unremarkable. Pancreatic parenchymal atrophy / fatty infiltration. Liver unrem arkable in shape. No CT evidence for cholelithiasis. The bilateral kidneys demonstrate no hydronephrosis or nephrolithiasis. Stomach is partially distended. Small bowel loops are demonstrating fecal like contents. Few scattered colonic diverticula. Moderate volume stool within the colon. Normal appendix. Abdominal aortic atherosclerotic disease. Bladder is partially distended. No free pelvic fluid. No i nguinal lymphadenopathy. [id number] thoracolumbar degenerative disc disease. Thoracic neurostimulator leads. Schmorl's node inferior L3 endplate. Old T11 compression deformity with 20% loss height. IMPRESSION: 1. Small-bowel fecal like contents which could be secondary to ileus/hypomotility. 2. No hydronephrosis/ nephrolithiasis. 3. Other findings as described.
[2025-03-31 19:49] VITALS: PULSE 86; RESP 18; O2SAT 98
[2025-03-31] MEDS: hydrALAZINE HCL 20 MG/ML VL IV ONE (21:31)
[2025-03-31] MEDS: InsuLIN REG 1unit/0.01ml Soln (100units/ml) IV ONE (21:32)
[2025-03-31] MEDS: SODIUM CHLORIDE 0.9% 1,000 ML IV ONE (21:34)
[2025-03-31] MEDS ORDERED: DEXTROSE (50%) 50ML SYRG IV PRN (22:30)
[2025-03-31] MEDS ORDERED: ACETAMINOPHEN 325 MG TAB PO PRN (22:30)
[2025-03-31] MEDS: SODIUM CHLORIDE 0.9% 1,000 ML IV SCH (22:51)
[2025-03-31] MEDS: cloNIDine 0.2 mg/24hr 7DAY PATCH TD ONE (23:33)
[2025-04-01] MEDS: ACCU-CHEK COMFORT CURVE STRIP VI SCH (00:23)
[2025-04-01] MEDS: hydrALAZINE HCL 20 MG/ML VL IV SCH (00:30)
[2025-04-01] MEDS: InsuLIN REG 1unit/0.01ml Soln (100units/ml) SC SCH (00:36)
[2025-04-01] MEDS: HYDROcodone-ACET 5/325MG TAB PO PRN (01:44)
[2025-04-01 06:17] LABS: Basophils # (auto) 0.1 10 ^3/uL (0-0.2); Basophils % (auto) 0.8 % (0.0-2.0); Eosinophils # (auto) 0.2 10 ^3/uL (0-0.8); Eosinophils % (auto) 1.5 % (0.0-7.0); Hematocrit 34.5 % (36.0-46.0); Hemoglobin 11.6 g/dL (12.2-16.2); Lymphocytes # (auto) 2.8 10 ^3/uL (0.4-5.4); Lymphocytes % (auto) 22.2 % (10.0-50.0); Mean Corpuscular Hemoglobin 26.1 pg (28.0-32.0); Mean Corpuscular Hgb Conc. 33.6 g/dL (32.0-36.0); Mean Corpuscular Volume 77.7 fL (80.0-100.0); Neutrophils # (auto) 8.4 10 ^3/uL (1.6-8.6); Neutrophils % (auto) 67.5 % (37.0-80.0); Platelet Count (auto) 456 10^3/uL (140-450); Red Blood Cells 4.44 10^6/uL (4.0-5.20); Red Cell Distribution Width 15.2 % (11.8-14.3); White Blood Cell 12.4 10^3/uL (4.4-10.8)
[2025-04-01 06:33] LABS: Alanine Aminotransferase 16 U/L (7-40); Albumin 3.3 g/dL (3.2-4.8); Anion Gap 8 (5-15); BUN/Creatinine Ratio 14.2 (10.0-20.0); Carbon Dioxide 23 mmol/L (20-31); Chloride 103 mmol/L (98-107); Potassium 3.7 mmol/L (3.5-5.1)
[2025-04-01 06:35] LABS: Alkaline Phosphatase 185 U/L (46-116); Aspartate Aminotransferase 11 U/L (13-40); Bilirubin, Total 0.2 mg/dL (0.2-1.0); Blood Urea Nitrogen 30 mg/dL (9-23); Calcium 8.6 mg/dL (8.7-10.4); Glucose 157 mg/dL (74-106); Sodium 134 mmol/L (136-145); Total Protein 5.7 g/dL (5.7-8.2)
[2025-04-01 08:00] VITALS: PULSE 75; RESP 14; O2SAT 96
--- NOTE | 2025-04-01 09:11 | DVHHP2 ---
History of Present Illness 64 y/o female patient with h/o HTN, CHF, DM, DKA, COPD presents with c/o abdomin al pain and distention. Patient also c/o nausea and vomiting. Patient states she was recently at [facility] and is currently taking antibiotic for abdominal wall cellulitis. Patient was found to be hypertensive and hyperglycemic. While in the emergency department the patient was evaluated by the provider, As per provider: Labs, vital signs, and imagining monitored. Patient will be admitted for further evaluation and treatment. I discussed admission with the patient/family and is in agreement to treatment plan. Patient Family History: Alcoholism G8 FATHER Diabetes mellitus G8 MOTHER G8 FATHER Allergies: Coded Allergies: Clonazepam (Verified Allergy, Unknown, 09/17/24) Lactose (Verified Allergy, Unknown, 09/17/24) Lorazepam (Verified Allergy, Unknown, 05/18/23) Nitrofurantoin (Verified Allergy, Unknown, 09/17/24) Olanzapine (Verified Allergy, Unknown, 05/18/23) Penicillins (Verified Allergy, Unknown, 09/17/24) Sulfa Antibiotics (Verified Allergy, Unknown, 09/17/24) Sulfamethoxazole w/Trimethoprim (Verified Allergy, Unknown, 05/18/23) Uncoded Allergies: ADHESIVE (Allergy, Unknown, 09/17/24) FLU VACCINE (Allergy, Unknown, 05/18/23) TAPE (Allergy, Unknown, 09/17/24) TILACTASE (Allergy, Unknown, 09/17/24) Home Meds Active Scripts Prednisone (Prednisone) 20 Mg Tab, 20 MG PO BID for 5 Days, #10 MG Prov:LANCE [place] RESIDENT 07/08/24 Amoxicillin & Pot Clavulanate (AUGMENTIN TABLET) 875 Mg Tb, 875 MG PO BID for 7 Days, #14 TAB Prov:LANCE [place] RESIDENT 07/08/24 Reported Medications Potassium Chloride (Klor-Con M20) 20 Meq Tab, 1 TAB PO DAILY 07/07/24 Chlorthalidone (Chlorthalidone) 25 Mg Tab, 12.5 MG PO DAILY 07/07/24 Hydralazine Hcl (Hydralazine Hcl) 50 Mg Tab, 1 TAB PO TID 07/07/24 Gabapentin (Gabapentin) 300 Mg Cap, 3 CAP PO TID 07/07/24 Ergocalciferol (Vitamin D) 50,000 Unit Cap, 1 CAP PO QWEEKLY 07/07/24 Hydroxyzine Hcl (Hydroxyzine Hcl) 10 Mg Tab, 2 TAB PO TID 07/07/24 Oxycodone W/ Acetaminophen (Apap/Oxycodone) 1 Tab Tab, 1 TAB PO Q8HR [10/325 MG] 07/07/24 Pramipexole Dihydrochloride (Pramipexole Dihydrochlori) 0.375 Mg Tab, 0.5 MG PO DAILY, TAB 07/07/24 Furosemide (Furosemide) 80 Mg Tab, 80 MG PO QAM, TAB 07/07/24 Leflunomide (Arava) 20 Mg Tab, 10 MG PO DAILY, TAB 07/07/24 Estrogens, Conjugated (PREMARIN TABLET) 0.3 Mg Tb, 1 TAB PO DAILY, #30 TAB 11 Refills 07/07/24 Venlafaxine Hcl (Venlafaxine Hcl Er) 75 Mg Cap, 75 MG PO DAILY, CAP 07/07/24 Venlafaxine Hcl (Venlafaxine Hcl Er) 150 Mg Cap, 150 MG PO QAM, CAP 07/07/24 Rivaroxaban (XARELTO) 10 Mg Tab, 1 TAB PO DAILY, #10 TAB 07/07/24 Finerenone (Kerendia) 10 Mg Tab, 10 MG PO DAILY, TAB 07/07/24 Omeprazole (Gnp Omeprazole) 20 Mg Tab, 20 MG PO BID, TAB 07/07/24 Apremilast Base (Otezla) 30 Mg Tab, 30 MG PO BID, TAB 07/07/24 Metoprolol Succinate (Metoprolol Succinate Er) 50 Mg Tab, 100 MG PO DAILY, TAB 07/07/24 Atorvastatin Calcium (ATORVASTATIN CALCIUM) 20 Mg Tab, 1 TAB PO DAILY, #30 TAB 5 Refills 07/07/24 Memantine Hydrochloride (Memantine HCl) 10 Mg Tab, 10 MG PO BID, TAB 07/07/24 Quetiapine Fumerate (Seroquel) 50 Mg Tab, 150 MG PO, TAB 07/07/24 Amlodipine Besylate (Amlodipine Besylate) 10 Mg Tab, 1 TAB PO DAILY, #30 TAB 5 Refills 07/07/24 Current Medications Current Medications Medications (Trade) Dose Ordered Sig/Patria Route PRN Reason Start Time Stop Time Status Last Admin Diagnostic Test (Pha) (Accu-Chek Comfort Curve T) 1 strip IQ4HR 04/01/25 00:00 04/01/25 20:21 Insulin Human Regular (InsuLIN R) IQ4HR SC 04/01/25 00:00 04/01/25 16:41 Dextrose 50 ml UD PRN IV Blood Sugar LESS THAN 60 03/31/25 22:30 Sodium Chloride 1,000 ml @ 150 mls/hr Q6H40M IV 03/31/25 22:30 04/01/25 18:25 Acetaminophen (Tylenol Tablet) 325 mg Q4HP PRN PO MILD PAIN (1-3 PAIN SCALE) 03/31/25 22:30 Acetaminophen/ Hydrocodone Bitart (Celoron 5/325MG Tab) 1 tab Q4HP PRN PO MODERATE PAIN (4-6 PAIN SCALE) 03/31/25 22:30 04/01/25 15:47 Ondansetron HCl (Zofran) 4 mg Q4HP PRN IV NAUSEA / VOMITING 03/31/25 22:30 04/01/25 16:45 Morphine Sulfate 2 mg Q4HPRN PRN IV SEVERE PAIN (7-10 PAIN SCALE) 03/31/25 22:30 04/01/25 10:42 Nitroglycerin (Ntrostat Sublingual) 0.4 mg Q5MINP PRN SL FOR CHEST PAIN 03/31/25 22:30 Morphine Sulfate 2 mg Q30M PRN IV FOR CHEST PAIN 03/31/25 22:30 Hydralazine HCl (Apresoline Injection) 10 mg Q6HR IV 04/01/25 00:00 04/01/25 16:43 Levofloxacin/ Dextrose 100 ml @ 100 mls/hr Q48H IV 04/01/25 09:15 04/01/25 10:29 Review of Systems Constitutional: denies chills, denies fever, denies malaise Eyes: denies eye pain, denies vision change ENT: denies ear pain, denies headache, denies nasal congestion, denies painful swallowing, denies voice change Cardiovascular: denies chest pain, denies edema, denies orthopnea, denies palpitations, denies paroxysmal nocturnal dyspnea Respiratory: denies cough, denies shortness of breath Gastrointestinal: denies constipation, denies diarrhea, denies nausea, denies vomiting Genitourinary: denies dysuria, denies frequent urination, denies urethral discharge Musculoskeletal: denies back pain, denies joint pain, denies muscle pain Skin: denies bruising, denies itching, denies rash Neurological: denies focal weakness, denies headache, denies sensory changes Psychiatric: denies anxiety, denies depression Endocrine: denies polydipsia, denies polyuria Hematologic/Lymphatic: denies easy bleeding, denies easy bruising, denies enlarged lymph nodes Allergic/Immunologic: denies allergy, denies hives Vital Signs Vital Signs Date Time Temp Pulse Resp B/P (MAP) Pulse Ox O2 Delivery O2 Flow Rate FiO2 04/01/25 18:31 109 20 148/73 (98) 04/01/25 17:14 98.1 98 98.1 04/01/25 15:11 Room Air* 0 21 Physical Exam General Appearance: alert, no distress HEENT: EOMI, PERRLA, normal external inspect of ears, no icterus, no nasal drainage Neck: no carotid bruit, no jugular venous distention (JVD), no lymphadenopathy Chest: normal thorax Respiratory: clear to auscultation, normal air movement Cardiovascular: regular rate and rhythm, no diastolic murmur, no jugular venous distention (JVD), no rub, no systolic murmur Abdominal: soft, no hepatomegaly, no mass, no splenomegaly, no tenderness Genitourinary: grossly normal external Musculoskeletal: no joint tenderness, no swelling Extremities: normal pulses, no calf tenderness, no clubbing, no cyanosis, no edema Skin: no bruising, no jaundice, no rash Neurological: alert, No focal deficit Results Labs Test 04/01/25 20:16 04/01/25 05:29 03/31/25 16:28 03/31/25 15:14 Range/Units POC Glucose 163 H 70-106 mg/dl White Blood Count 12.4 H 4.4-10.8 10^3/uL Red Blood Count 4.44 4.0-5.20 10^6/uL Hemoglobin 11.6 L 12.2-16.2 g/dL Hematocrit 34.5 L 36.0-46.0 % Mean Corpuscular Volume 77.7 L 80.0-100.0 fL Mean Corpuscular Hemoglobin 26.1 L 28.0-32.0 pg Mean Corpuscular Hemoglobin Concent 33.6 32.0-36.0 g/dL Red Cell Distribution Width 15.2 H 11.8-14.3 % Platelet Count 456 H 140-450 10^3/uL Mean Platelet Volume 8.0 6.9-10.8 fL Neutrophils (%) (Auto) 67.5 37.0-80.0 % Lymphocytes (%) (Auto) 22.2 10.0-50.0 % Monocytes (%) (Auto) 8.0 0.0-12.0 % Eosinophils (%) (Auto) 1.5 0.0-7.0 % Basophils (%) (Auto) 0.8 0.0-2.0 % Neutrophils # (Auto) 8.4 1.6-8.6 10 ^3/uL Lymphocytes # (Auto) 2.8 0.4-5.4 10 ^3/uL Monocytes # (Auto) 1.0 0-1.3 10 ^3/uL Eosinophils # (Auto) 0.2 0-0.8 10 ^3/uL Basophils # (Auto) 0.1 0-0.2 10 ^3/uL Nucleated Red Blood Cells 0.0 % Sodium Level 134 #L 136-145 mmol/L Potassium Level 3.7 3.5-5.1 mmol/L Chloride Level 103 98-107 mmol/L Carbon Dioxide Level 23 20-31 mmol/L Anion Gap 8 5-15 Blood Urea Nitrogen 30 H 9-23 mg/dL Creatinine 2.12 H 0.550-1.02 mg/dL Glomerular Filtration Rate Calc 25 >90 mL/min BUN/Creatinine Ratio 14.2 10.0-20.0 Serum Glucose 157 H 74-106 mg/dL Calcium Level 8.6 L 8.7-10.4 mg/dL Total Bilirubin 0.2 0.2-1.0 mg/dL Aspartate Amino Transferase (AST) 11 L 13-40 U/L Alanine Aminotransferase (ALT) 16 7-40 U/L Alkaline Phosphatase 185 H 46-116 U/L Total Protein 5.7 5.7-8.2 g/dL Albumin 3.3 3.2-4.8 g/dL Troponin I High Sensitivity < 3 L </=34 ng/L Urine Color Colorless Yellow Urine Clarity Clear Clear Urine pH 7.0 5.0-9.0 Urine Specific [place] 1.005 1.001-1.035 Urine Protein 2+ H Negative Urine Ketones Negative Negative Urine Blood 1+ H Negative /uL Urine Nitrite Negative Negative Urine Bilirubin Negative Negative Urine Urobilinogen Normal Negative mg/dL Urine Leukocyte Esterase Negative Negative /uL Urine RBC <1 0 - 4 /hpf Urine Microscopic WBC 0-5 /HPF Urine Squamous Epithelial Cells None seen <5 /hpf Urine Bacteria None seen None Seen /hpf Urine Glucose 4+ H Normal mg/dL Test 03/31/25 14:56 Range/Units Lactic Acid Level 1.8 0.4-2.0 mmol/L B-Type Natriuretic Peptide 56.01 0-100 pg/mL Lipase 22 12-53 U/L Microbiology Date/Time Source Procedure Growth Status 03/31/25 14:56 Blood Blood Culture - Preliminary NO GROWTH AFTER 24 HOURS OF INCUBATION. Resulted Plan 1. Hypertensive urgency Monitor, antihypertensives 2. Ileus Monitor, NPO, GI consult, IV fluids 3. Dementia Monitor 4. Morbid obesity Monitor 5. Hyponatremia Monitor, daily labs 6. DM II with hyperglycemia Monitor, insulin ss 7. Leukocytosis, unspecified Monitor, IV abx Plan discussed with: Patient, Other ANGEL [employer]IENTE [employer] April 01, 2025 09:11
--- NOTE | 2025-04-01 09:12 | DVHPN2 ---
Progress Note - Dictate Date Seen: April 01, 2025 Medical Necessity Reason Pt with a Central, PICC or Fol: No vital signs Vital Sign Date Time Temp Pulse Resp B/P (MAP) Pulse Ox O2 Delivery O2 Flow Rate FiO2 04/01/25 08:00 76 04/01/25 08:00 97.8 14 148/67 (94) 96 97.8 04/01/25 08:00 Room Air* 0 21 Total Intake and Output 03/31/25 03/31/25 04/01/25 15:00 23:00 07:00 Intake Total 750 ml Balance 750 ml medications Current Medications Medications Dose Ordered Sig/Patria Route Start Time Stop Time Status Last Admin Dose Admin Diagnostic Test (Pha) 1 strip IQ4HR 04/01/25 00:00 04/01/25 08:18 Insulin Human Regular IQ4HR SC 04/01/25 00:00 04/01/25 08:18 Dextrose 50 ml UD PRN IV 03/31/25 22:30 Sodium Chloride 1,000 ml @ 150 mls/hr Q6H40M IV 03/31/25 22:30 04/01/25 05:11 Acetaminophen 325 mg Q4HP PRN PO 03/31/25 22:30 Acetaminophen/ Hydrocodone Bitart 1 tab Q4HP PRN PO 03/31/25 22:30 04/01/25 01:44 Ondansetron HCl 4 mg Q4HP PRN IV 03/31/25 22:30 Morphine Sulfate 2 mg Q4HPRN PRN IV 03/31/25 22:30 Nitroglycerin 0.4 mg Q5MINP PRN SL 03/31/25 22:30 Morphine Sulfate 2 mg Q30M PRN IV 03/31/25 22:30 Hydralazine HCl 10 mg Q6HR IV 04/01/25 00:00 04/01/25 00:30 objective General Appearance: alert, no distress HEENT: EOMI, PERRLA, normal external inspect of ears, no icterus, no nasal drainage Neck: no carotid bruit, no jugular venous distention (JVD), no lymphadenopathy Chest: normal thorax Respiratory: clear to auscultation, normal air movement Cardiovascular: regular rate and rhythm, no diastolic murmur, no jugular venous distention (JVD), no rub, no systolic murmur Abdominal: soft, no hepatomegaly, no mass, no splenomegaly, no tenderness Genitourinary: grossly normal external Musculoskeletal: no joint tenderness, no swelling Extremities: normal pulses, no calf tenderness, no clubbing, no cyanosis, no edema Skin: no bruising, no jaundice, no rash Neurological: alert, No focal deficit laboratory and microbiology Laboratory Tests 04/01/25 05:29 Test 04/01/25 05:29 Range/Units Serum Glucose 157 H 74-106 mg/dL Problem List 1. Hypertensive urgency Monitor, antihypertensives 2. Ileus Monitor, NPO, GI consult, IV fluids 3. Dementia Monitor 4. Morbid obesity Monitor 5. Hyponatremia Monitor, daily labs 6. DM II with hyperglycemia Monitor, insulin ss 7. Leukocytosis, unspecified Monitor, IV abx Assessment/Plan Subjective: Patient is awake and alert. Objective: Patient is lethargic. Patient was admitted for abdominal pain related to ileus. Patient has underlying history of uncontrolled diabetes and most likely gastroparesis, despite multiple counseling sessions, personal financial planner consult, and home health. Patient is known to the practice and she is known to lu food. Plan: IV fluids. Keep patient NPO. GI consult. Continue insulin sliding scale. Monitor for return of bowel function. Plan discussed with: Patient, Other ANGEL VALIENTE NP April 01, 2025 09:11
[2025-04-01] MEDS: levoFLOXacin 500MG 100 ML IV SCH (10:29)
[2025-04-01] MEDS: ONDANSETRON HCL 4 MG/2 ML VIAL IV PRN (10:41)
[2025-04-01] MEDS: MORPHINE SULFATE INJ 2 MG/ml SYRG IV PRN (10:42)
--- NOTE | 2025-04-01 10:49 | DVHINCON2 ---
GI Consult Consult Note GI Consult note Date of Consultation: 04/01/2025 Chief Complaint: Ileus Referring Physician: Dr. Acharya H&P: 64-year-old female with past medical history of CHF, CKD, COPD, DM, DKA, HTN presented to ER with history of abdominal pain and distention with nausea and vomiting for the past two months. Patient admits to having these symptoms every day. Mostly throwing up food and water. No hematemesis. Due to this patient has poor appetite. Unsure of any weight loss. Patient has history of constipation, last bowel movement 2-3 days ago. No melena or red blood in stool. Patient takes Percocet 3-4 pills every day for pain. SP EGD and colonoscopy more than 10 years ago, unsure about results. SP fall six months ago and has been in more pain since that time. Patient also complaining of leg cramping Past Medical History: CHF, CKF (stage III), COPD, DM, HTN, morbid obesity, DKA Past Surgical History: Denies Social History: NO smoking, drinking ETOH and use of illegal drugs. Family History: Noncontributory Review of Systems: Constitutional: no fever, chill, weight loss HEENT: no eye pain, no hearing loss, no oral lesion, no scleral icterus Heart: no chest pain, no chest pressure Lung: no cough, no dyspnea with exertion Abdomen: see HPI Musculoskeletal: Back pain, leg cramps Physical exam: General: NAD, AAOX3 Chest: lung hutchison clear to auscultation Heart: RRR, no murmur Abdomen: Mild-distended, mild generalized tenderness to palpation, +BS Labs: Labs Test 04/01/25 08:12 04/01/25 05:29 03/31/25 16:28 03/31/25 15:14 Range/Units POC Glucose 208 H 70-106 mg/dl White Blood Count 12.4 H 4.4-10.8 10^3/uL Red Blood Count 4.44 4.0-5.20 10^6/uL Hemoglobin 11.6 L 12.2-16.2 g/dL Hematocrit 34.5 L 36.0-46.0 % Mean Corpuscular Volume 77.7 L 80.0-100.0 fL Mean Corpuscular Hemoglobin 26.1 L 28.0-32.0 pg Mean Corpuscular Hemoglobin Concent 33.6 32.0-36.0 g/dL Red Cell Distribution Width 15.2 H 11.8-14.3 % Platelet Count 456 H 140-450 10^3/uL Mean Platelet Volume 8.0 6.9-10.8 fL Neutrophils (%) (Auto) 67.5 37.0-80.0 % Lymphocytes (%) (Auto) 22.2 10.0-50.0 % Monocytes (%) (Auto) 8.0 0.0-12.0 % Eosinophils (%) (Auto) 1.5 0.0-7.0 % Basophils (%) (Auto) 0.8 0.0-2.0 % Neutrophils # (Auto) 8.4 1.6-8.6 10 ^3/uL Lymphocytes # (Auto) 2.8 0.4-5.4 10 ^3/uL Monocytes # (Auto) 1.0 0-1.3 10 ^3/uL Eosinophils # (Auto) 0.2 0-0.8 10 ^3/uL Basophils # (Auto) 0.1 0-0.2 10 ^3/uL Nucleated Red Blood Cells 0.0 % Sodium Level 134 #L 136-145 mmol/L Potassium Level 3.7 3.5-5.1 mmol/L Chloride Level 103 98-107 mmol/L Carbon Dioxide Level 23 20-31 mmol/L Anion Gap 8 5-15 Blood Urea Nitrogen 30 H 9-23 mg/dL Creatinine 2.12 H 0.550-1.02 mg/dL Glomerular Filtration Rate Calc 25 >90 mL/min BUN/Creatinine Ratio 14.2 10.0-20.0 Serum Glucose 157 H 74-106 mg/dL Calcium Level 8.6 L 8.7-10.4 mg/dL Total Bilirubin 0.2 0.2-1.0 mg/dL Aspartate Amino Transferase (AST) 11 L 13-40 U/L Alanine Aminotransferase (ALT) 16 7-40 U/L Alkaline Phosphatase 185 H 46-116 U/L Total Protein 5.7 5.7-8.2 g/dL Albumin 3.3 3.2-4.8 g/dL Troponin I High Sensitivity < 3 L </=34 ng/L Urine Color Colorless Yellow Urine Clarity Clear Clear Urine pH 7.0 5.0-9.0 Urine Specific [place] 1.005 1.001-1.035 Urine Protein 2+ H Negative Urine Ketones Negative Negative Urine Blood 1+ H Negative /uL Urine Nitrite Negative Negative Urine Bilirubin Negative Negative Urine Urobilinogen Normal Negative mg/dL Urine Leukocyte Esterase Negative Negative /uL Urine RBC <1 0 - 4 /hpf Urine Microscopic WBC 0-5 /HPF Urine Squamous Epithelial Cells None seen <5 /hpf Urine Bacteria None seen None Seen /hpf Urine Glucose 4+ H Normal mg/dL Test 03/31/25 14:56 Range/Units Lactic Acid Level 1.8 0.4-2.0 mmol/L B-Type Natriuretic Peptide 56.01 0-100 pg/mL Lipase 22 12-53 U/L Imaging: CT abdomen pelvis IMPRESSION: 1. Small-bowel fecal like contents which could be secondary to ileus/hypomotility. 2. No hydronephrosis/ nephrolithiasis. 3. Other findings as described. Assessment: Abdominal pain Ileus History of constipation Nausea and vomiting Plan: Discussed with Dr. Stauffer Small-bowel series with Gastrografin Ice chips, advance to clear liquids after small-bowel series if resulting negative We will continue to follow this patient Thank you for this consult Date of Service: April 01, 2025 Billing Provider: COOKIE MACEDO Common Visit Codes: CONSULT ONLY Consultation Codes: [id number] CONSULT <60MIN COOKIE MACEDO April 01, 2025 10:49
[2025-04-01] MEDS: GASTROGRAFIN 120 ML SOL ONE (13:29)
--- NOTE | 2025-04-01 15:57 | DVH ---
Procedure: XY SMALL BOWEL SERIES-W GASTROGRA Reason for study/Clinical History: ILEUS ABD PAIN Comparison Study: NoneNone available at time of dictation. Technique: Single contrast small bowel series performed. FINDINGS/IMPRESSION: Initial sizing machine and drier operator view of the abdomen and pelvis appears demonstrates no acute process. Contrast is identified within the colon by 3 hours. This represents a Mild delay in small bowel collins sit time. No evidence of obstruction identified.
[2025-04-01 15:59] VITALS: BP 175/80; PULSE 94; RESP 21; TEMP 98.1; O2SAT 98
[2025-04-01 17:14] VITALS: BP 175/80; PULSE 97; RESP 21; TEMP 98.1; O2SAT 98
[2025-04-01 18:31] VITALS: BP 148/73; PULSE 109; RESP 20
[2025-04-01 20:00] VITALS: PULSE 97; RESP 18
[2025-04-01 21:00] VITALS: BP 148/69; PULSE 98; RESP 20; TEMP 97.7; O2SAT 99
[2025-04-01] MEDS ORDERED: ACETAMINOPHEN PO SCH (22:00)
[2025-04-01] MEDS ORDERED: OXYCODONE PO SCH (22:00)
[2025-04-01] MEDS: MEMANTINE HCL 5 MG TAB PO SCH (22:33)
[2025-04-01] MEDS: GABAPENTIN 300 MG CAP PO SCH (22:33)
[2025-04-01] MEDS: hydrOXYzine HCL 10 MG TAB PO SCH (22:56)
[2025-04-01] MEDS: OXYCODONE W/ ACETAMINOPHEN 5/325MG TABLET PO SCH (22:57)
[2025-04-01] MEDS: oxyCODONE HCL 5MG TAB PO SCH (22:57)
[2025-04-02] VITALS (9 sets, daily range): BP systolic 117–156; BP diastolic 57–88; PULSE 88–144; RESP 17–21; TEMP 97.7–98.9; O2SAT 96–100
[2025-04-02] MEDS: MORPHINE SULFATE INJ 2 MG/ml SYRG IV PRN (02:40)
[2025-04-02] MEDS: NITROGLYCERIN 0.4 MG SL TAB SL PRN (02:42)
[2025-04-02] MEDS ORDERED: LORazepam 2MG/ML-1ML VIAL IV PRN (04:00)
[2025-04-02] MEDS: HYDROmorphone HCL 2 MG/ML VL/or syr IM ONE (04:02)
[2025-04-02 04:24] LABS: Basophils # (auto) 0.1 10 ^3/uL (0-0.2); Eosinophils # (auto) 0.1 10 ^3/uL (0-0.8); Mean Corpuscular Volume 77.9 fL (80.0-100.0); Monocytes # (auto) 0.9 10 ^3/uL (0-1.3); Red Blood Cells 4.26 10^6/uL (4.0-5.20); Red Cell Distribution Width 15.2 % (11.8-14.3)
[2025-04-02 04:26] LABS: Basophils % (auto) 0.8 % (0.0-2.0); Eosinophils % (auto) 0.5 % (0.0-7.0); Hematocrit 33.1 % (36.0-46.0); Hemoglobin 11.2 g/dL (12.2-16.2); Lymphocytes # (auto) 2.7 10 ^3/uL (0.4-5.4); Mean Corpuscular Hemoglobin 26.4 pg (28.0-32.0); Mean Corpuscular Hgb Conc. 33.8 g/dL (32.0-36.0); Monocytes % (auto) 8.8 % (0.0-12.0); Neutrophils # (auto) 6.1 10 ^3/uL (1.6-8.6); Neutrophils % (auto) 61.9 % (37.0-80.0); Platelet Count (auto) 442 10^3/uL (140-450); Sodium 140 mmol/L (136-145); White Blood Cell 9.8 10^3/uL (4.4-10.8)
[2025-04-02 04:27] LABS: Anion Gap 11 (5-15); Calcium 8.8 mg/dL (8.7-10.4); Carbon Dioxide 21 mmol/L (20-31)
[2025-04-02 04:33] LABS: Magnesium 1.9 mg/dL (1.6-2.6)
[2025-04-02 04:41] LABS: Blood Urea Nitrogen 31 mg/dL (9-23); Chloride 108 mmol/L (98-107); Glucose 161 mg/dL (74-106); Potassium 3.2 mmol/L (3.5-5.1)
[2025-04-02] MEDS: METOPROLOL TARTRATE 1MG/1ML-5ML VIAL IV ONE (06:27)
[2025-04-02] MEDS: METOPROLOL SUCCINATE XL 50 MG TAB PO SCH (09:16)
[2025-04-02] MEDS: amLODIPine BESYLATE 5 MG TAB PO SCH (09:17)
[2025-04-02] MEDS: RIVAROXABAN 10 MG TAB PO SCH (09:17)
[2025-04-02] MEDS: ATORVASTATIN 20 MG TAB PO SCH (09:17)
[2025-04-02] MEDS: PRAMIPEXOLE DIHYDROCHLORIDE MO 0.25 MG TAB PO SCH (09:18)
--- NOTE | 2025-04-02 09:47 | DVHINCON2 ---
Date of service: April 02, 2025 Referring Physician Delma Carter NP History of Present Illness This is a 64-year old female known outside to Dr. Soto who initially presented with reported abdominal pain, distension, nausea and vomiting for approximately 2 months prior to initial presentation. During course of present hospitalization abdominal x-ray had revealed small-bowel fecal like contents questioning ileus/hypomotility which GI services were involved and had recommended subsequent small bowel series which had revealed no evidence for obstruction. While undergoing care within telemetry, patient had reportedly experienced an episode of chest discomfort (now resolved) which 12-lead electrocardiogram at time of event had revealed sinus tachycardia at 123bpm with evidence for acute ischemic changes. Initial HS troponin level was found normal at <3, with subsequent trend of <3, and 5. ProBNP level was found normal at 56. LDL was found to be 82. Of note, previous cardiac catheterization (12/28/2017) had revealed no obstructive disease. Subsequent NST (05/28/2023) had revealed normal LV perfusion. Patient had underwent recent hospitalization at [facility] which Echocardiogram (01/30/2025) at that time had revealed a preserved LVEF of 63%, mildly increased wall thickness, mild septal thickening, with no underlying valvular pathology. At present, denies any further chest pain. Denies any further cardiac related symptoms. As the patient had experienced a brief episode of chest pain while undergoing care within telemetry, Cardiology services were involved for cardiac aspects of care. Past Medical History Reported past medical history includes chronic diastolic heart failure, hypertension, hyperlipidemia, diabetes mellitus, diabetic ketoacidosis, spinal fracture, depression, diabetic neuropathy, previous history of pulmonary embolism on chronic anticoagulation, dementia, morbid obesity, non-adherent to medical therapy, cataract and status post surgical correction Cardiac Catheterization: (12/28/2017) revealed The following findings were noted. Left main: No obstructive coronary artery disease noted. Left anterior descending artery and its diagonal branches: No obstructive coronary artery disease noted. Left circumflex and its obtuse margina branches: No obstructive coronary artery disease noted. Right coronary artery and its PDA and posterolateral branches: No obstructive coronary artery disease noted. Dominance: Right sided dominance. Complications No immediate complications noted. The patient tolerated the procedure well. Assessment: The coronary Arterial angiography showing no obstructive disease. Recommendations: Trial of Medical therapy Nuclear Stress Test: (05/28/2023) revealed LV perfusion is normal. There is no evidence of inducible ischemia. Echocardiogram: (08/09/2024) revealed LV EF is 70%, assessed by visual sandi mation. Left Ventricle: Normal systolic function. Left ventricle stroke volume index is 38 mL/m2. There is normal left atrial pressure and grade I left ventricular diastolic dysfunction Echocardiogram: (01/30/2025) revealed a preserved LVEF of 63%, mildly increased wall thickness, mild septal thickening, with no underlying valvular pathology. Past Surgical History Reviewed Family History: Alcoholism G8 FATHER Diabetes mellitus G8 MOTHER G8 FATHER Allergies: Coded Allergies: Clonazepam (Verified Allergy, Unknown, 09/17/24) Lactose (Verified Allergy, Unknown, 09/17/24) Lorazepam (Verified Allergy, Unknown, hallucinations, 04/02/25) Nitrofurantoin (Verified Allergy, Unknown, 09/17/24) Olanzapine (Verified Allergy, Unknown, 05/18/23) Penicillins (Verified Allergy, Unknown, 09/17/24) Sulfa Antibiotics (Verified Allergy, Unknown, 09/17/24) Sulfamethoxazole w/Trimethoprim (Verified Allergy, Unknown, 05/18/23) Uncoded Allergies: ADHESIVE (Allergy, Unknown, 09/17/24) FLU VACCINE (Allergy, Unknown, 05/18/23) TAPE (Allergy, Unknown, 09/17/24) TILACTASE (Allergy, Unknown, 09/17/24) Home Meds Active Scripts Prednisone (Prednisone) 20 Mg Tab, 20 MG PO BID for 5 Days, #10 MG Prov:ZULAY [place] RESIDENT 07/08/24 Reported Medications Potassium Chloride (Klor-Con M20) 20 Meq Tab, 1 TAB PO DAILY 07/07/24 Chlorthalidone (Chlorthalidone) 25 Mg Tab, 12.5 MG PO DAILY 07/07/24 Hydralazine Hcl (Hydralazine Hcl) 50 Mg Tab, 1 TAB PO TID 07/07/24 Gabapentin (Gabapentin) 300 Mg Cap, 3 CAP PO TID 07/07/24 Ergocalciferol (Vitamin D) 50,000 Unit Cap, 1 CAP PO QWEEKLY 07/07/24 Hydroxyzine Hcl (Hydroxyzine Hcl) 10 Mg Tab, 2 TAB PO TID 07/07/24 Oxycodone W/ Acetaminophen (Apap/Oxycodone) 1 Tab Tab, 1 TAB PO Q8HR [10/325 MG] 07/07/24 Pramipexole Dihydrochloride (Pramipexole Dihydrochlori) 0.375 Mg Tab, 0.5 MG PO DAILY, TAB 07/07/24 Furosemide (Furosemide) 80 Mg Tab, 80 MG PO QAM, TAB 07/07/24 Leflunomide (Arava) 20 Mg Tab, 10 MG PO DAILY, TAB 07/07/24 Estrogens, Conjugated (PREMARIN TABLET) 0.3 Mg Tb, 1 TAB PO DAILY, #30 TAB 11 Refills 07/07/24 Venlafaxine Hcl (Venlafaxine Hcl Er) 150 Mg Cap, 150 MG PO QAM, CAP 07/07/24 Rivaroxaban (XARELTO) 10 Mg Tab, 1 TAB PO DAILY, #10 TAB 07/07/24 Finerenone (Kerendia) 10 Mg Tab, 10 MG PO DAILY, TAB 07/07/24 Omeprazole (Gnp Omeprazole) 20 Mg Tab, 20 MG PO BID, TAB 07/07/24 Apremilast Base (Otezla) 30 Mg Tab, 30 MG PO BID, TAB 07/07/24 Metoprolol Succinate (Metoprolol Succinate Er) 50 Mg Tab, 100 MG PO DAILY, TAB 07/07/24 Atorvastatin Calcium (ATORVASTATIN CALCIUM) 20 Mg Tab, 1 TAB PO DAILY, #30 TAB 5 Refills 07/07/24 Memantine Hydrochloride (Memantine HCl) 10 Mg Tab, 10 MG PO BID, TAB 07/07/24 Quetiapine Fumerate (Seroquel) 50 Mg Tab, 150 MG PO, TAB 07/07/24 Amlodipine Besylate (Amlodipine Besylate) 10 Mg Tab, 1 TAB PO DAILY, #30 TAB 5 Refills 07/07/24 Discontinued Reported Medications Venlafaxine Hcl (Venlafaxine Hcl Er) 75 Mg Cap, 75 MG PO DAILY, CAP 07/07/24 Current Medications Current Medications Medications (Trade) Dose Ordered Sig/Patria Route PRN Reason Start Time Stop Time Status Last Admin Atorvastatin Calcium (Lipitor) 20 mg DAILY PO 04/02/25 10:00 04/02/25 09:17 Gabapentin (Neurontin Capsule) 300 mg TID PO 04/01/25 22:00 04/02/25 06:27 Hydroxyzine HCl (Vistaril Oral) 20 mg TID PO 04/01/25 22:00 04/02/25 06:24 Amlodipine Besylate (Norvasc Tablet) 10 mg DAILY PO 04/02/25 10:00 04/02/25 09:17 Memantine (Namenda Tablet) 10 mg BID PO 04/01/25 22:00 04/02/25 09:17 Patient Own Medication 1 tab Q8HR PO 04/01/25 22:00 04/01/25 21:34 DC Metoprolol Succinate (Toprol Xl) 100 mg DAILY PO 04/02/25 10:00 04/02/25 09:16 Rivaroxaban (Xarelto Tablet) 10 mg DAILY PO 04/02/25 10:00 04/02/25 09:17 Pramipexole Dihydrochloride (Mirapex Tablet) 0.5 mg DAILY PO 04/02/25 10:00 04/02/25 09:18 Oxycodone/ Acetaminophen (Percocet 5/ 325MG Tablet) 1 tab Q8HR PO 04/01/25 22:30 04/01/25 22:57 Oxycodone HCl 5 mg Q8HR PO 04/01/25 22:30 04/01/25 22:57 Lorazepam (Ativan Inj) 0.5 mg Q8HP PRN IV ANXIETY 04/02/25 04:00 Review of Systems A 14-point review of systems is negative unless otherwise noted above Vital Signs Vital Signs Date Time Temp Pulse Resp B/P (MAP) Pulse Ox O2 Delivery O2 Flow Rate FiO2 04/02/25 09:17 134/56 04/02/25 09:16 117 04/02/25 08:12 Room Air* 0 21 04/02/25 05:00 98.7 21 99 98.7 Physical Exam Heart: S1 and S2 regular. The patient is in sinus rhythm. Lungs: Clear to auscultation Extremities: Distal pulses palpable, 2+. No evidence for peripheral edema Labs/Diagnostic Data Labs Test 04/02/25 04:06 04/02/25 01:19 04/01/25 05:29 03/31/25 15:14 Range/Units White Blood Count 9.8 4.4-10.8 10^3/uL Red Blood Count 4.26 4.0-5.20 10^6/uL Hemoglobin 11.2 L 12.2-16.2 g/dL Hematocrit 33.1 L 36.0-46.0 % Mean Corpuscular Volume 77.9 L 80.0-100.0 fL Mean Corpuscular Hemoglobin 26.4 L 28.0-32.0 pg Mean Corpuscular Hemoglobin Concent 33.8 32.0-36.0 g/dL Red Cell Distribution Width 15.2 H 11.8-14.3 % Platelet Count 442 140-450 10^3/uL Mean Platelet Volume 7.6 6.9-10.8 fL Neutrophils (%) (Auto) 61.9 37.0-80.0 % Lymphocytes (%) (Auto) 28.0 10.0-50.0 % Monocytes (%) (Auto) 8.8 0.0-12.0 % Eosinophils (%) (Auto) 0.5 0.0-7.0 % Basophils (%) (Auto) 0.8 0.0-2.0 % Neutrophils # (Auto) 6.1 1.6-8.6 10 ^3/uL Lymphocytes # (Auto) 2.7 0.4-5.4 10 ^3/uL Monocytes # (Auto) 0.9 0-1.3 10 ^3/uL Eosinophils # (Auto) 0.1 0-0.8 10 ^3/uL Basophils # (Auto) 0.1 0-0.2 10 ^3/uL Nucleated Red Blood Cells 0.0 % Sodium Level 140 # 136-145 mmol/L Potassium Level 3.2 L 3.5-5.1 mmol/L Chloride Level 108 H 98-107 mmol/L Carbon Dioxide Level 21 20-31 mmol/L Anion Gap 11 5-15 Blood Urea Nitrogen 31 H 9-23 mg/dL Creatinine 2.38 H 0.550-1.02 mg/dL Glomerular Filtration Rate Calc 22 >90 mL/min BUN/Creatinine Ratio 13.0 10.0-20.0 Serum Glucose 161 H 74-106 mg/dL Calcium Level 8.8 8.7-10.4 mg/dL Magnesium Level 1.9 1.6-2.6 mg/dL Troponin I High Sensitivity 5 </=34 ng/L POC Glucose 210 H 70-106 mg/dl Total Bilirubin 0.2 0.2-1.0 mg/dL Aspartate Amino Transferase (AST) 11 L 13-40 U/L Alanine Aminotransferase (ALT) 16 7-40 U/L Alkaline Phosphatase 185 H 46-116 U/L Total Protein 5.7 5.7-8.2 g/dL Albumin 3.3 3.2-4.8 g/dL Urine Color Colorless Yellow Urine Clarity Clear Clear Urine pH 7.0 5.0-9.0 Urine Specific [place] 1.005 1.001-1.035 Urine Protein 2+ H Negative Urine Ketones Negative Negative Urine Blood 1+ H Negative /uL Urine Nitrite Negative Negative Urine Bilirubin Negative Negative Urine Urobilinogen Normal Negative mg/dL Urine Leukocyte Esterase Negative Negative /uL Urine RBC <1 0 - 4 /hpf Urine Microscopic WBC 0-5 /HPF Urine Squamous Epithelial Cells None seen <5 /hpf Urine Bacteria None seen None Seen /hpf Urine Glucose 4+ H Normal mg/dL Test 03/31/25 14:56 Range/Units Lactic Acid Level 1.8 0.4-2.0 mmol/L B-Type Natriuretic Peptide 56.01 0-100 pg/mL Lipase 22 12-53 U/L Microbiology Date/Time Source Procedure Growth Status 03/31/25 14:56 Blood Blood Culture - Preliminary NO GROWTH AFTER 24 HOURS OF INCUBATION. Resulted Plan/Recommendation ASSESSMENT: This is a 64-year old female known outside to Dr. Soto who initially presented with reported abdominal pain, distension, nausea and vomiting for approximately 2 months prior to initial presentation. During course of present hospitalization abdominal x-ray had revealed small-bowel fecal like contents questioning i leus/hypomotility which GI services were involved and had recommended subsequent small bowel series which had revealed no evidence for obstruction. While undergoing care within telemetry, patient had reportedly experienced an episode of chest discomfort (now resolved) which 12-lead electrocardiogram at time of event had revealed sinus tachycardia at 123bpm with evidence for acute ischemic changes. Initial HS troponin level was found normal at <3, with subsequent trend of <3, and 5. ProBNP level was found normal at 56. LDL was found to be 82. Of note, previous cardiac catheterization (12/28/2017) had revealed no obstructive disease. Subsequent NST (05/28/2023) had revealed normal LV perfusion. Patient had underwent recent hospitalization at [facility] which Echocardiogram (01/30/2025) at that time had revealed a preserved LVEF of 63%, mildly increased wall thickness, mild septal thickening, with no underlying valvular pathology. At present, denies any further chest pain. Denies any further cardiac related symptoms. As the patient had experienced a brief episode of chest pain while undergoing care within telemetry, Cardiology services were involved for cardiac aspects of care. Reported past medical history includes chronic diastolic heart failure, hypertension, hyperlipidemia, diabetes mellitus, diabetic ketoacidosis, spinal fracture, depression, diabetic neuropathy, previous history of pulmonary embolism on chronic anticoagulation, dementia, morbid obesity, non-adherent to medical therapy, cataract and status post surgical correction Cardiac Catheterization: (12/28/2017) revealed The following findings were noted. Left main: No obstructive coronary artery disease noted. Left anterior descending artery and its diagonal branches: No obstructive coronary artery disease noted. Left circumflex and its obtuse margina branches: No obstructive coronary artery disease noted. Right coronary artery and its PDA and posterolateral branches: No obstructive coronary artery disease noted. Dominance: Right sided dominance. Complications No immediate complications noted. The patient tolerated the procedure well. Assessment: The coronary Arteri al angiography showing no obstructive disease. Recommendations: Trial of Medical therapy Nuclear Stress Test: (05/28/2023) revealed LV perfusion is normal. There is no evidence of inducible ischemia. Echocardiogram: (08/09/2024) revealed LV EF is 70%, assessed by visual estimation. Left Ventricle: Normal systolic function. Left ventricle stroke volume index is 38 mL/m2. There is normal left atrial pressure and grade I left ventricular diastolic dysfunction Echocardiogram: (01/30/2025) revealed a preserved LVEF of 63%, mildly increased wall thickness, mild septal thickening, with no underlying valvular pathology. Sinus tachycardia Abdominal pain, likely secondary to ileus Chest pain (HS Troponins <3, <3, 5), ACS not considered Chronic diastolic heart failure, LVEF of 63% ([facility] 01/30/2025) Diabetes mellitus, questionable concern for gastroparesis Hypertensive emergency, improving Leukocytosis, resolved Chronic kidney disease Morbid obesity, BMI 40 Medical non-adherence Hyperlipidemia CARDIAC SUGGESTIONS FOR MANAGEMENT: Request for chest x-ray Request for thyroid function test As ACS is not considered, no ischemic workup indicated at this point To proceed with optimized medical therapy and risk factor modification Appears euvolemic at present, ok to withhold diuretic therapy at present Proceed with close observation for overt signs of fluid overload Proceed with strict intakes, outputs, and daily weights On Xarelto 10mg daily for previous history of PE On IV antibiotics as managed by primary team Metoprolol Succinate 100mg once daily PRN IV Hydralazine q 6 hours PRN IV Lopressor q 4 hours Amlodipine 10mg once daily Atorvastatin 20mg daily Follow up GI/Nephrology Proceed with close rate and rhythm surveillance Proceed with close hemodynamic surveillance Proceed with optimized blood pressure control Transfuse to sustain HGB level above 7.0 Sustain Magnesium level greater than 2.0 Sustain Potassium level greater than 4.0 Follow up renal function and electrolytes Counseled at length on importance of adherence to medical therapy Management of diabetes mellitus as per primary team Management of co-morbidities as per primary team Management of ileus as per primary team/GI Management of CKD as per Nephrology Management in telemetry Follow up employment consultant recommendations Will proceed to follow from a cardiac perspective Further recommendations per clinical progression All available diagnostic labs, EKG's, and images were personally reviewed Patient's status, findings, and plan of care was reviewed and discussed with supervising physician Dr. Anaya, who is in agreement with current plan of care. Plan of care discussed with and agreed upon by patient / primary RN Prognosis: Guarded Thank you for allowing me to participate in the care of this patient. Further recommendations based on patients clinical course and progression, primary attending, and other consultants. Will continue to follow with primary attendin g. If you have any questions or concerns, please do not hesitate to contact me. A total of 75 minutes was spent reviewing the patient record, examining the patient, making a diagnostic and therapeutic plan, discussing this plan with medical personnel, following up on diagnostic studies and following the patient for clinical stability excluding any and all procedures. At least 50% of this time was spent in direct, [id number] contact. Plan discussed with: Patient (Patient and Primary RN ) KEVIN BILLINGS ARBORIST April 02, 2025 09:47
[2025-04-02 10:02] LABS: LDL Cholesterol 82 mg/dL (< 100)
[2025-04-02 10:04] LABS: Cholesterol 173 mg/dL (< 200); HDL Cholesterol 36 mg/dL (40-59); Triglycerides 308 mg/dL (< 150)
--- NOTE | 2025-04-02 10:43 | DVHPN2 ---
Progress Note - Dictate Date Seen: April 02, 2025 Medical Necessity Reason Pt with a Central, PICC or Fol: No vital signs Vital Sign Date Time Temp Pulse Resp B/P (MAP) Pulse Ox O2 Delivery O2 Flow Rate FiO2 04/02/25 09:17 134/56 04/02/25 09:16 117 04/02/25 09:00 97.8 18 100 97.8 04/02/25 08:12 Room Air* 0 21 Total Intake and Output 04/01/25 04/01/25 04/02/25 15:00 23:00 07:00 Intake Total 1300 ml 0 ml 450 ml Output Total 1050 ml 650 ml Balance 250 ml 0 ml -200 ml medications Current Medications Medications Dose Ordered Sig/Patria Route Start Time Stop Time Status Last Admin Dose Admin Diagnostic Test (Pha) 1 strip IQ4HR 04/01/25 00:00 04/02/25 08:16 1 STRIP Insulin Human Regular IQ4HR SC 04/01/25 00:00 04/02/25 08:24 2 UNITS Dextrose 50 ml UD PRN IV 03/31/25 22:30 Sodium Chloride 1,000 ml @ 150 mls/hr Q6H40M IV 03/31/25 22:30 04/02/25 08:39 150 MLS/HR Acetaminophen 325 mg Q4HP PRN PO 03/31/25 22:30 Acetaminophen/ Hydrocodone Bitart 1 tab Q4HP PRN PO 03/31/25 22:30 04/02/25 03:38 1 TAB Ondansetron HCl 4 mg Q4HP PRN IV 03/31/25 22:30 04/01/25 16:45 4 MG Morphine Sulfate 2 mg Q4HPRN PRN IV 03/31/25 22:30 04/01/25 10:42 2 MG Nitroglycerin 0.4 mg Q5MINP PRN SL 03/31/25 22:30 04/02/25 03:06 0.4 MG Morphine Sulfate 2 mg Q30M PRN IV 03/31/25 22:30 04/02/25 03:23 2 MG Hydralazine HCl 10 mg Q6HR IV 04/01/25 00:00 04/02/25 06:26 10 MG Levofloxacin/ Dextrose 100 ml @ 100 mls/hr Q48H IV 04/01/25 09:15 04/01/25 10:29 100 MLS/HR Atorvastatin Calcium 20 mg DAILY PO 04/02/25 10:00 04/02/25 09:17 20 MG Gabapentin 300 mg TID PO 04/01/25 22:00 04/02/25 06:27 300 MG Hydroxyzine HCl 20 mg TID PO 04/01/25 22:00 04/02/25 06:24 20 MG Amlodipine Besylate 10 mg DAILY PO 04/02/25 10:00 04/02/25 09:17 10 MG Memantine 10 mg BID PO 04/01/25 22:00 04/02/25 09:17 10 MG Metoprolol Succinate 100 mg DAILY PO 04/02/25 10:00 04/02/25 09:16 100 MG Rivaroxaban 10 mg DAILY PO 04/02/25 10:00 04/02/25 09:17 10 MG Pramipexole Dihydrochloride 0.5 mg DAILY PO 04/02/25 10:00 04/02/25 09:18 0.5 MG Oxycodone/ Acetaminophen 1 tab Q8HR PO 04/01/25 22:30 04/01/25 22:57 1 TAB Oxycodone HCl 5 mg Q8HR PO 04/01/25 22:30 04/01/25 22:57 5 MG Lorazepam 0.5 mg Q8HP PRN IV 04/02/25 04:00 objective General Appearance: alert, no distress HEENT: EOMI, PERRLA, normal external inspect of ears, no icterus, no nasal drainage Neck: no carotid bruit, no jugular venous distention (JVD), no lymphadenopathy Chest: normal thorax Respiratory: clear to auscultation, normal air movement Cardiovascular: regular rate and rhythm, no diastolic murmur, no jugular venous distention (JVD), no rub, no systolic murmur Abdominal: soft, no hepatomegaly, no mass, no splenomegaly, no tenderness Genitourinary: grossly normal external Musculoskeletal: no joint tenderness, no swelling Extremities: normal pulses, no calf tenderness, no clubbing, no cyanosis, no edema Skin: no bruising, no jaundice, no rash Neurological: alert, No focal deficit laboratory and microbiology Laboratory Tests 04/02/25 04:06 Test 04/02/25 04:06 Range/Units Serum Glucose 161 H 74-106 mg/dL Problem List 1. Hypertensive urgency Monitor, antihypertensives 2. Ileus Monitor, NPO, GI consult, IV fluids 3. Dementia Monitor 4. Morbid obesity Monitor 5. Hyponatremia Monitor, daily labs 6. DM II with hyperglycemia Monitor, insulin ss 7. Leukocytosis, unspecified Monitor, IV abx Assessment/Plan Subjective: Patient is awake and alert. Objective: Admitted for abdominal pain likely secondary to ileus; gastroparesis suspected. Longstanding history of uncontrolled diabetes. Slight YARON with creatinine increased to 2.38. Nephrology consulted. Patient had a bowel movement today. Small bowel series showed no obstruction. Potassium is 3.2. Plan: Continue IV hydration, replace electrolytes as needed, GI recommendations appreciated. Plan discussed with: Patient, Other ANGEL VALIENTE [employer]IST April 02, 2025 10:43
[2025-04-02] MEDS: POTASSIUM CHL 20 Meq TABLET PO ONE (12:22)
[2025-04-02] MEDS: LACTATED RINGER'S 1,000 ML IV ONE (12:23)
--- NOTE | 2025-04-02 15:12 | ECG ---
[facility] Test Date: 2025-04-02 Test Time: 02:43:50 Pat Name: RAVI LEVINE Department: Respiratoy Room: 0245T A Gender: F Machine Rough Rounder: : 1960 Requested By: ANGEL VALIENTE Order Number: [id number] Reading MD: Chepe Cole Measurements Intervals Ola Rate: 123 P: 73 NJ: 153 QRS: 29 QRSD: 76 T: 13 QT: 320 QTc: 458 Interpretive Statements Sinus tachycardia Consider anterior infarct Electronically Signed On 04-02-2025 20:09:11 PDT by Chepe Cole Please click the below link to view image of tracing.
[2025-04-02] MEDS ORDERED: METOPROLOL TARTRATE 1MG/1ML-5ML VIAL IV PRN (16:45)
--- NOTE | 2025-04-02 17:15 | DVH ---
INDICATION: heart failure TECHNIQUE: Frontal view of the chest. COMPARISON: XY CHEST PORTABLE on DOS: 07/05/24 FINDINGS: Finding:. The heart and mediastinal contours are grossly unremarkable. There is no evidence of pleur al disease. The lungs are clear. The bony structures of the chest are intact without fracture. IMPRESSION: 1. No evidence of acute disease.
--- NOTE | 2025-04-02 17:33 | DVHINCON2 ---
Date of service: April 02, [address] Acharya Reason for Consultation Acute kidney injury. History of Present Illness 64-year-old patient with significant history of chronic kidney disease stage 4 per patient, hypertension, CHF, diabetes type 2, diabetic nephropathy, hyperlipidemia, obesity, history of DKA who presents to the hospital because of on and off abdominal distention associated with nausea and vomiting after ingestion of food and intolerant to p.o. intake for the last couple of days. She also complains of nausea and vomiting associated with the abdominal distention no hematemesis no hematochezia no melanotic stool. Patient was rece ntly admitted to another facility for cellulitis has been on oral antibiotics. On admission she was found to have severe hypertension of 228/123 in addition to elevated blood glucose of 150. On admission she was found to have decreased renal function. Past Medical History Chronic kidney disease four, hypertension, diabetes type 2 Past Surgical History Left knee surgery Allergies: Coded Allergies: Clonazepam (Verified Allergy, Unknown, 09/17/24) Lactose (Verified Allergy, Unknown, 09/17/24) Lorazepam (Verified Allergy, Unknown, hallucinations, 04/02/25) Nitrofurantoin (Verified Allergy, Unknown, 09/17/24) Olanzapine (Verified Allergy, Unknown, 05/18/23) Penicillins (Verified Allergy, Unknown, 09/17/24) Sulfa Antibiotics (Verified Allergy, Unknown, 09/17/24) Sulfamethoxazole w/Trimethoprim (Verified Allergy, Unknown, 05/18/23) Uncoded Allergies: ADHESIVE (Allergy, Unknown, 09/17/24) FLU VACCINE (Allergy, Unknown, 05/18/23) TAPE (Allergy, Unknown, 09/17/24) TILACTASE (Allergy, Unknown, 09/17/24) Home Meds Active Scripts Prednisone (Prednisone) 20 Mg Tab, 20 MG PO BID for 5 Days, #10 MG Prov:LANCE [place] RESIDENT 07/08/24 Reported Medications Potassium Chloride (Klor-Con M20) 20 Meq Tab, 1 TAB PO DAILY 07/07/24 Chlorthalidone (Chlorthalidone) 25 Mg Tab, 12.5 MG PO DAILY 07/07/24 Hydralazine Hcl (Hydralazine Hcl) 50 Mg Tab, 1 TAB PO TID 07/07/24 Gabapentin (Gabapentin) 300 Mg Cap, 3 CAP PO TID 07/07/24 Ergocalciferol (Vitamin D) 50,000 Unit Cap, 1 CAP PO QWEEKLY 07/07/24 Hydroxyzine Hcl (Hydroxyzine Hcl) 10 Mg Tab, 2 TAB PO TID 07/07/24 Oxycodone W/ Acetaminophen (Apap/Oxycodone) 1 Tab Tab, 1 TAB PO Q8HR [10/325 MG] 07/07/24 Pramipexole Dihydrochloride (Pramipexole Dihydrochlori) 0.375 Mg Tab, 0.5 MG PO DAILY, TAB 07/07/24 Furosemide (Furosemide) 80 Mg Tab, 80 MG PO QAM, TAB 07/07/24 Leflunomide (Arava) 20 Mg Tab, 10 MG PO DAILY, TAB 07/07/24 Estrogens, Conjugated (PREMARIN TABLET) 0.3 Mg Tb, 1 TAB PO DAILY, #30 TAB 11 Refills 07/07/24 Venlafaxine Hcl (Venlafaxine Hcl Er) 150 Mg Cap, 150 MG PO QAM, CAP 07/07/24 Rivaroxaban (XARELTO) 10 Mg Tab, 1 TAB PO DAILY, #10 TAB 07/07/24 Finerenone (Kerendia) 10 Mg Tab, 10 MG PO DAILY, TAB 07/07/24 Omeprazole (Gnp Omeprazole) 20 Mg Tab, 20 MG PO BID, TAB 07/07/24 Apremilast Base (Otezla) 30 Mg Tab, 30 MG PO BID, TAB 07/07/24 Metoprolol Succinate (Metoprolol Succinate Er) 50 Mg Tab, 100 MG PO DAILY, TAB 07/07/24 Atorvastatin Calcium (ATORVASTATIN CALCIUM) 20 Mg Tab, 1 TAB PO DAILY, #30 TAB 5 Refills 07/07/24 Memantine Hydrochloride (Memantine HCl) 10 Mg Tab, 10 MG PO BID, TAB 07/07/24 Quetiapine Fumerate (Seroquel) 50 Mg Tab, 150 MG PO, TAB 07/07/24 Amlodipine Besylate (Amlodipine Besylate) 10 Mg Tab, 1 TAB PO DAILY, #30 TAB 5 Refills 07/07/24 Discontinued Reported Medications Venlafaxine Hcl (Venlafaxine Hcl Er) 75 Mg Cap, 75 MG PO DAILY, CAP 07/07/24 Current Medications Current Medications Medications (Trade) Dose Ordered Sig/Patria Route PRN Reason Start Time Stop Time Status Last Admin Atorvastatin Calcium (Lipitor) 20 mg DAILY PO 04/02/25 10:00 04/02/25 09:17 Gabapentin (Neurontin Capsule) 300 mg TID PO 04/01/25 22:00 04/02/25 14:21 Hydroxyzine HCl (Vistaril Oral) 20 mg TID PO 04/01/25 22:00 04/02/25 06:24 Amlodipine Besylate (Norvasc Tablet) 10 mg DAILY PO 04/02/25 10:00 04/02/25 09:17 Memantine (Namenda Tablet) 10 mg BID PO 04/01/25 22:00 04/02/25 09:17 Patient Own Medication 1 tab Q8HR PO 04/01/25 22:00 04/01/25 21:34 DC Metoprolol Succinate (Toprol Xl) 100 mg DAILY PO 04/02/25 10:00 04/02/25 09:16 Rivaroxaban (Xarelto Tablet) 10 mg DAILY PO 04/02/25 10:00 04/02/25 09:17 Pramipexole Dihydrochloride (Mirapex Tablet) 0.5 mg DAILY PO 04/02/25 10:00 04/02/25 09:18 Oxycodone/ Acetaminophen (Percocet 5/ 325MG Tablet) 1 tab Q8HR PO 04/01/25 22:30 04/01/25 22:57 Oxycodone HCl 5 mg Q8HR PO 04/01/25 22:30 04/01/25 22:57 Lorazepam (Ativan Inj) 0.5 mg Q8HP PRN IV ANXIETY 04/02/25 04:00 Metoprolol Tartrate (Lopressor) 5 mg Q4HPRN PRN IV Sustained HR > 110 bpm 04/02/25 16:45 Family History: Alcoholism G8 FATHER Diabetes mellitus G8 MOTHER G8 FATHER Social History She denies smoking alcohol or drug abuse. Review of Systems HEENT: Oral mucosa dry Neck no JVD Cardiovascular: Denies for chest pain denies orthopnea or PND Respiratory: Denies cough or shortness of breath Gastrointestinal: Positive for nausea vomiting, denies diarrhea. Musculoskeletal: Denies myalgias Neurological: Denies focal weakness Dermatological: Denies any rash The rest of the review of systems were reviewed pertinent positives and pertinent negatives are as per HPI up to 12 points review of systems H&P Exam Vital Signs/I&O Vital Sign Date Time Temp Pulse Resp B/P (MAP) Pulse Ox O2 Delivery O2 Flow Rate FiO2 04/02/25 17:14 130/72 04/02/25 13:00 97.7 107 17 100 97.7 04/02/25 08:12 Room Air* 0 21 Intake and Output 04/01/25 04/02/25 19:00 07:00 Intake Total 1300 ml 450 ml Output Total 1050 ml 650 ml Balance 250 ml -200 ml Intake Oral 0 ml 450 ml IV Total 1300 ml Output Urine Total 1050 ml 650 ml # Voids 1 # Bowel Movements 2 2 Physical Exam HEENT: No evidence of JVD, no oral ulcers. Pulmonary: Lungs are diminished on auscultation bilaterally Cardiovascular S1-S2, no S3 or S4 Abdomen: Bowel sounds positive, soft no rebound tenderness Skin: No rash Neurological: Alert, oriented, no focal weakness Labs/Diagnostic Data Labs/Diagnostic Data Laboratory Tests Test 04/02/25 16:07 04/02/25 11:50 04/02/25 04:06 04/02/25 01:19 Range/Units POC Glucose 222 H 275 H 210 H 70-106 mg/dl White Blood Count 9.8 4.4-10.8 10^3/uL Red Blood Count 4.26 4.0-5.20 10^6/uL Hemoglobin 11.2 L 12.2-16.2 g/dL Hematocrit 33.1 L 36.0-46.0 % Mean Corpuscular Volume 77.9 L 80.0-100.0 fL Mean Corpuscular Hemoglobin 26.4 L 28.0-32.0 pg Mean Corpuscular Hemoglobin Concent 33.8 32.0-36.0 g/dL Red Cell Distribution Width 15.2 H 11.8-14.3 % Platelet Count 442 140-450 10^3/uL Mean Platelet Volume 7.6 6.9-10.8 fL Neutrophils (%) (Auto) 61.9 37.0-80.0 % Lymphocytes (%) (Auto) 28.0 10.0-50.0 % Monocytes (%) (Auto) 8.8 0.0-12.0 % Eosinophils (%) (Auto) 0.5 0.0-7.0 % Basophils (%) (Auto) 0.8 0.0-2.0 % Neutrophils # (Auto) 6.1 1.6-8.6 10 ^3/uL Lymphocytes # (Auto) 2.7 0.4-5.4 10 ^3/uL Monocytes # (Auto) 0.9 0-1.3 10 ^3/uL Eosinophils # (Auto) 0.1 0-0.8 10 ^3/uL Basophils # (Auto) 0.1 0-0.2 10 ^3/uL Nucleated Red Blood Cells 0.0 % Sodium Level 140 # 136-145 mmol/L Potassium Level 3.2 L 3.5-5.1 mmol/L Chloride Level 108 H 98-107 mmol/L Carbon Dioxide Level 21 20-31 mmol/L Anion Gap 11 5-15 Blood Urea Nitrogen 31 H 9-23 mg/dL Creatinine 2.38 H 0.550-1.02 mg/dL Glomerular Filtration Rate Calc 22 >90 mL/min BUN/Creatinine Ratio 13.0 10.0-20.0 Serum Glucose 161 H 74-106 mg/dL Calcium Level 8.8 8.7-10.4 mg/dL Magnesium Level 1.9 1.6-2.6 mg/dL Troponin I High Sensitivity 5 </=34 ng/L Triglycerides Level 308 H < 150 mg/dL Cholesterol Level 173 < 200 mg/dL LDL Cholesterol 82 < 100 mg/dL HDL Cholesterol 36 L 40-59 mg/dL Test 04/01/25 20:16 04/01/25 13:53 04/01/25 08:12 04/01/25 05:29 Range/Units POC Glucose 163 H 253 H 208 H 70-106 mg/dl White Blood Count 12.4 H 4.4-10.8 10^3/uL Red Blood Count 4.44 4.0-5.20 10^6/uL Hemoglobin 11.6 L 12.2-16.2 g/dL Hematocrit 34.5 L 36.0-46.0 % Mean Corpuscular Volume 77.7 L 80.0-100.0 fL Mean Corpuscular Hemoglobin 26.1 L 28.0-32.0 pg Mean Corpuscular Hemoglobin Concent 33.6 32.0-36.0 g/dL Red Cell Distribution Width 15.2 H 11.8-14.3 % Platelet Count 456 H 140-450 10^3/uL Mean Platelet Volume 8.0 6.9-10.8 fL Neutrophils (%) (Auto) 67.5 37.0-80.0 % Lymphocytes (%) (Auto) 22.2 10.0-50.0 % Monocytes (%) (Auto) 8.0 0.0-12.0 % Eosinophils (%) (Auto) 1.5 0.0-7.0 % Basophils (%) (Auto) 0.8 0.0-2.0 % Neutrophils # (Auto) 8.4 1.6-8.6 10 ^3/uL Lymphocytes # (Auto) 2.8 0.4-5.4 10 ^3/uL Monocytes # (Auto) 1.0 0-1.3 10 ^3/uL Eosinophils # (Auto) 0.2 0-0.8 10 ^3/uL Basophils # (Auto) 0.1 0-0.2 10 ^3/uL Nucleated Red Blood Cells 0.0 % Sodium Level 134 #L 136-145 mmol/L Potassium Level 3.7 3.5-5.1 mmol/L Chloride Level 103 98-107 mmol/L Carbon Dioxide Level 23 20-31 mmol/L Anion Gap 8 5-15 Blood Urea Nitrogen 30 H 9-23 mg/dL Creatinine 2.12 H 0.550-1.02 mg/dL Glomerular Filtration Rate Calc 25 >90 mL/min BUN/Creatinine Ratio 14.2 10.0-20.0 Serum Glucose 157 H 74-106 mg/dL Calcium Level 8.6 L 8.7-10.4 mg/dL Total Bilirubin 0.2 0.2-1.0 mg/dL Aspartate Amino Transferase (AST) 11 L 13-40 U/L Alanine Aminotransferase (ALT) 16 7-40 U/L Alkaline Phosphatase 185 H 46-116 U/L Total Protein 5.7 5.7-8.2 g/dL Albumin 3.3 3.2-4.8 g/dL Test 03/31/25 16:28 03/31/25 15:14 03/31/25 14:56 Range/Units Troponin I High Sensitivity < 3 L < 3 L </=34 ng/L Urine Color Colorless Yellow Urine Clarity Clear Clear Urine pH 7.0 5.0-9.0 Urine Specific [place] 1.005 1.001-1.035 Urine Protein 2+ H Negative Urine Ketones Negative Negative Urine Blood 1+ H Negative /uL Urine Nitrite Negative Negative Urine Bilirubin Negative Negative Urine Urobilinogen Normal Negative mg/dL Urine Leukocyte Esterase Negative Negative /uL Urine RBC <1 0 - 4 /hpf Urine Microscopic WBC 0-5 /HPF Urine Squamous Epithelial Cells None seen <5 /hpf Urine Bacteria None seen None Seen /hpf Urine Glucose 4+ H Normal mg/dL White Blood Count 10.9 H 4.4-10.8 10^3/uL Red Blood Count 4.87 4.0-5.20 10^6/uL Hemoglobin 13.0 12.2-16.2 g/dL Hematocrit 38.2 36.0-46.0 % Mean Corpuscular Volume 78.4 L 80.0-100.0 fL Mean Corpuscular Hemoglobin 26.6 L 28.0-32.0 pg Mean Corpuscular Hemoglobin Concent 34.0 32.0-36.0 g/dL Red Cell Distribution Width 15.1 H 11.8-14.3 % Platelet Count 476 H 140-450 10^3/uL Mean Platelet Volume 7.9 6.9-10.8 fL Neutrophils (%) (Auto) 68.8 37.0-80.0 % Lymphocytes (%) (Auto) 21.1 10.0-50.0 % Monocytes (%) (Auto) 7.2 0.0-12.0 % Eosinophils (%) (Auto) 1.6 0.0-7.0 % Basophils (%) (Auto) 1.3 0.0-2.0 % Neutrophils # (Auto) 7.5 1.6-8.6 10 ^3/uL Lymphocytes # (Auto) 2.3 0.4-5.4 10 ^3/uL Monocytes # (Auto) 0.8 0-1.3 10 ^3/uL Eosinophils # (Auto) 0.2 0-0.8 10 ^3/uL Basophils # (Auto) 0.1 0-0.2 10 ^3/uL Nucleated Red Blood Cells 0.0 % Sodium Level 129 L 136-145 mmol/L Potassium Level 4.2 3.5-5.1 mmol/L Chloride Level 99 98-107 mmol/L Carbon Dioxide Level 23 20-31 mmol/L Anion Gap 7 5-15 Blood Urea Nitrogen 35 H 9-23 mg/dL Creatinine 2.25 H 0.550-1.02 mg/dL Glomerular Filtration Rate Calc 24 >90 mL/min BUN/Creatinine Ratio 15.6 10.0-20.0 Serum Glucose 392 H 74-106 mg/dL Lactic Acid Level 1.8 0.4-2.0 mmol/L Calcium Level 9.1 8.7-10.4 mg/dL Total Bilirubin 0.2 0.2-1.0 mg/dL Aspartate Amino Transferase (AST) 12 L 13-40 U/L Alanine Aminotransferase (ALT) 22 7-40 U/L Alkaline Phosphatase 271 H 46-116 U/L B-Type Natriuretic Peptide 56.01 0-100 pg/mL Total Protein 6.2 5.7-8.2 g/dL Albumin 3.7 3.2-4.8 g/dL Lipase 22 12-53 U/L CT scan showed No hydronephrosis Assessment Assessment: 1. Acute kidney injury on chronic kidney disease 2. Nausea and vomiting 3. Uncontrolled hypertension 4. Hypokalemia 5. Abdominal pain concerns for ileus 6. Chronic pain syndrome 7. Diabetes type 2 Plan and recommendation: Stop LR, NS fluid with NS drip Resume Antihypertensive meds Hold off on phosphate binders for now Check iron levels Urine protein creatinine ratio GI consult, general surgery consult I will transfer the care to Dr. Buitrago since patient states to be following with her as an outpatient. Plan discussed with: Patient KG HER MD April 02, 2025 17:32
[2025-04-03] VITALS (7 sets, daily range): BP systolic 112–132; BP diastolic 45–72; PULSE 69–94; RESP 18–19; TEMP 98–98.6; O2SAT 96–100
--- NOTE | 2025-04-03 08:33 | DVHPN2 ---
Progress Note - Dictate Date Seen: April 03, 2025 Medical Necessity Reason Pt with a Central, PICC or Fol: No vital signs Vital Sign Date Time Temp Pulse Resp B/P (MAP) Pulse Ox O2 Delivery O2 Flow Rate FiO2 04/03/25 06:00 115/45 04/03/25 05:00 98.6 90 18 98 98.6 04/02/25 20:00 Room Air* 0 21 Total Intake and Output 04/02/25 04/02/25 04/03/25 15:00 23:00 07:00 Intake Total 595 ml 1160 ml 460 ml Output Total 400 ml 350 ml Balance 595 ml 760 ml 110 ml medications Current Medications Medications Dose Ordered Sig/Patria Route Start Time Stop Time Status Last Admin Dose Admin Diagnostic Test (Pha) 1 strip IQ4HR 04/01/25 00:00 04/03/25 08:26 1 STRIP Insulin Human Regular IQ4HR SC 04/01/25 00:00 04/03/25 04:54 4 UNITS Dextrose 50 ml UD PRN IV 03/31/25 22:30 Sodium Chloride 1,000 ml @ 150 mls/hr Q6H40M IV 03/31/25 22:30 04/03/25 04:44 150 MLS/HR Acetaminophen 325 mg Q4HP PRN PO 03/31/25 22:30 Acetaminophen/ Hydrocodone Bitart 1 tab Q4HP PRN PO 03/31/25 22:30 04/02/25 03:38 1 TAB Ondansetron HCl 4 mg Q4HP PRN IV 03/31/25 22:30 04/01/25 16:45 4 MG Morphine Sulfate 2 mg Q4HPRN PRN IV 03/31/25 22:30 04/01/25 10:42 2 MG Nitroglycerin 0.4 mg Q5MINP PRN SL 03/31/25 22:30 04/02/25 03:06 0.4 MG Morphine Sulfate 2 mg Q30M PRN IV 03/31/25 22:30 04/02/25 03:23 2 MG Hydralazine HCl 10 mg Q6HR IV 04/01/25 00:00 04/03/25 00:52 10 MG Levofloxacin/ Dextrose 100 ml @ 100 mls/hr Q48H IV 04/01/25 09:15 04/01/25 10:29 100 MLS/HR Atorvastatin Calcium 20 mg DAILY PO 04/02/25 10:00 04/02/25 09:17 20 MG Gabapentin 300 mg TID PO 04/01/25 22:00 04/03/25 06:32 300 MG Hydroxyzine HCl 20 mg TID PO 04/01/25 22:00 04/03/25 06:32 20 MG Amlodipine Besylate 10 mg DAILY PO 04/02/25 10:00 04/02/25 09:17 10 MG Memantine 10 mg BID PO 04/01/25 22:00 04/02/25 21:55 10 MG Metoprolol Succinate 100 mg DAILY PO 04/02/25 10:00 04/02/25 09:16 100 MG Rivaroxaban 10 mg DAILY PO 04/02/25 10:00 04/02/25 09:17 10 MG Pramipexole Dihydrochloride 0.5 mg DAILY PO 04/02/25 10:00 04/02/25 09:18 0.5 MG Oxycodone/ Acetaminophen 1 tab Q8HR PO 04/01/25 22:30 04/01/25 22:57 1 TAB Oxycodone HCl 5 mg Q8HR PO 04/01/25 22:30 04/01/25 22:57 5 MG Lorazepam 0.5 mg Q8HP PRN IV 04/02/25 04:00 Metoprolol Tartrate 5 mg Q4HPRN PRN IV 04/02/25 16:45 laboratory and microbiology Laboratory Tests 04/02/25 04:06 Test 04/02/25 04:06 Range/Units Serum Glucose 161 H 74-106 mg/dL Assessment/Plan ASSESSMENT: This is a 64-year old female known outside to Dr. Soto who initially presented with reported abdominal pain, distension, nausea and vomiting for approximately 2 months prior to initial presentation. During course of present hospitalization abdominal x-ray had revealed small-bowel fecal like contents questioning ileus/hypomotility which GI services were involved and had recommended subsequent small bowel series which had revealed no evidence for obstruction. While undergoing care within telemetry, patient had reportedly experienced an episode of chest discomfort (now resolved) which 12-lead electrocardiogram at time of event had revealed sinus tachycardia at 123bpm with evidence for acute ischemic changes. Initial HS troponin level was found normal at <3, with subsequent trend of <3, and 5. ProBNP level was found normal at 56. LDL was found to be 82. Of note, previous cardiac catheterization (12/28/2017) had revealed no obstructive disease. Subsequent NST (05/28/2023) had revealed normal LV perfusion. Patient had underwent recent hospitalization at [facility] which Echocardiogram (01/30/2025) at that time had revealed a preserved LVEF of 63%, mildly increased wall thickness, mild septal thickening, with no underlying valvular pathology. At present, denies any further chest pain. Denies any further cardiac related symptoms. As the patient had experienced a brief episode of chest pain while undergoing care within telemetry, Cardiology services were involved for cardiac aspects of care. Reported past medical history includes chronic diastolic heart failure, hypertension, hyperlipidemia, diabetes mellitus, diabetic ketoacidosis, spinal fracture, depression, diabetic neuropathy, previous history of pulmonary embolism on chronic anticoagulation, dementia, morbid obesity, non-adherent to medical therapy, cataract and status post surgical correction Cardiac Catheterization: (12/28/2017) revealed The following findings were noted. Left main: No obstructive coronary artery disease noted. Left anterior descending artery and its diagonal branches: No obstructive coronary artery disease noted. Left circumflex and its obtuse margina branches: No obstructive coronary artery disease noted. Right coronary artery and its PDA and posterolateral branches: No obstructive coronary artery disease noted. Dominance: Right sided dominance. Complications No immediate complications noted. The patient tolerated the procedure well. Assessment: The coronary Arterial angiography showing no obstructive disease. Recommendations: Trial of Medical therapy Nuclear Stress Test: (05/28/2023) revealed LV perfusion is normal. There is no evidence of inducible ischemia. Echocardiogram: (08/09/2024) revealed LV EF is 70%, assessed by visual estimation. Left Ventricle: Normal systolic function. Left ventricle stroke volume index is 38 mL/m2. There is normal left atrial pressure and grade I left ventricular diastolic dysfunction Echocardiogram: (01/30/2025) revealed a preserved LVEF of 63%, mildly increased wall thickness, mild septal thickening, with no underlying valvular pathology. Chest x-ray revealed no evidence for acute cardiopulmonary abnormalities TSH of 4.92 with Free T4 of 1.04 Sinus tachycardia, resolved Abdominal pain, likely secondary to ileus Chest pain (HS Troponins <3, <3, 5), ACS not considered Chronic diastolic heart failure, LVEF of 63% ([facility] 01/30/2025) Diabetes mellitus, questionable concern for gastroparesis Hypertensive emergency, improving Leukocytosis, resolved Chronic kidney disease Morbid obesity, BMI 40 Medical non-adherence Hyperlipidemia CARDIAC SUGGESTIONS FOR MANAGEMENT: As ACS is not considered, no ischemic workup indicated at this point To proceed with optimized medical therapy and risk factor modification Appears euvolemic at present, ok to withhold diuretic therapy at present Proceed with close observation for overt signs of fluid overload Proceed with strict intakes, outputs, and daily weights On Xarelto 10mg daily for previous history of PE On IV antibiotics as managed by primary team Metoprolol Succinate 100mg once daily PRN IV Hydralazine q 6 hours PRN IV Lopressor q 4 hours Amlodipine 10mg once daily Atorvastatin 20mg daily Follow up GI/Nephrology Proceed with close rate and rhythm surveillance Proceed with close hemodynamic surveillance Proceed with optimized blood pressure control Transfuse to sustain HGB level above 7.0 Sustain Magnesium level greater than 2.0 Sustain Potassium level greater than 4.0 Follow up renal function and electrolytes Counseled at length on importance of adherence to medical therapy Management of diabetes mellitus as per primary team Management of co-morbidities as per primary team Management of ileus as per primary team/GI Management of CKD as per Nephrology Management in telemetry Follow up compliance consultant recommendations Will proceed to follow from a cardiac perspective Further recommendations per clinical progression All available diagnostic labs, EKG's, and images were personally reviewed Patient's status, findings, and plan of care was reviewed and discussed with supervising physician Dr. Anaya, who is in agreement with current plan of care. Plan of care discussed with and agreed upon by patient / primary RN Prognosis: Guarded Thank you for allowing me to participate in the care of this patient. Further recommendations based on patients clinical course and progression, primary attending, and other consultants. Will continue to follow with primary attending. If you have any questions or concerns, please do not hesitate to contact me. A total of 75 minutes was spent reviewing the patient record, examining the patient, making a diagnostic and therapeutic plan, discussing this plan with medical personnel, following up on diagnostic studies and following the patient for clinical stability excluding any and all procedures. At least 50% of this time was spent in direct, [id number] contact. Plan discussed with: Patient (Patient and Primary RN ) Dietary Evaluation Review Comments: 1. NPO secondary to ileus 2. Pt not to go >5 days NPO/CL diet only -> (Currently Day 2) 3. Consider prokinetic agent to stimulate GI motility; defer to MD 4. If unable to progress diet initiate nutrition support measures Expected Outcomes/Goals: Nutrition support vs. diet advancement. Plan discussed with: Patient (Patient and Primary RN ) KEVIN BILLINGS April 03, 2025 08:33
[2025-04-03 11:25] LABS: Basophils # (auto) 0.1 10 ^3/uL (0-0.2); Basophils % (auto) 1.2 % (0.0-2.0); Eosinophils # (auto) 0.1 10 ^3/uL (0-0.8); Eosinophils % (auto) 1.7 % (0.0-7.0); Hematocrit 30.3 % (36.0-46.0); Hemoglobin 9.7 g/dL (12.2-16.2); Lymphocytes # (auto) 2.2 10 ^3/uL (0.4-5.4); Lymphocytes % (auto) 26.6 % (10.0-50.0); Mean Corpuscular Hemoglobin 26.7 pg (28.0-32.0); Mean Corpuscular Hgb Conc. 32.2 g/dL (32.0-36.0); Mean Corpuscular Volume 82.9 fL (80.0-100.0); Monocytes # (auto) 0.8 10 ^3/uL (0-1.3); Monocytes % (auto) 9.1 % (0.0-12.0); Neutrophils # (auto) 5.2 10 ^3/uL (1.6-8.6); Neutrophils % (auto) 61.4 % (37.0-80.0); Platelet Count (auto) 371 10^3/uL (140-450); Red Blood Cells 3.65 10^6/uL (4.0-5.20); Red Cell Distribution Width 15.7 % (11.8-14.3); White Blood Cell 8.4 10^3/uL (4.4-10.8)
[2025-04-03 11:33] LABS: Alanine Aminotransferase 12 U/L (7-40); Anion Gap 9 (5-15); Aspartate Aminotransferase 16 U/L (13-40); BUN/Creatinine Ratio 9.3 (10.0-20.0); Potassium 4.2 mmol/L (3.5-5.1)
[2025-04-03 11:36] LABS: Albumin 2.7 g/dL (3.2-4.8); Alkaline Phosphatase 145 U/L (46-116); Bilirubin, Total 0.2 mg/dL (0.2-1.0); Blood Urea Nitrogen 25 mg/dL (9-23); Calcium 7.7 mg/dL (8.7-10.4); Carbon Dioxide 19 mmol/L (20-31); Chloride 107 mmol/L (98-107); Glucose 176 mg/dL (74-106); Sodium 135 mmol/L (136-145); Total Protein 4.7 g/dL (5.7-8.2)
--- NOTE | 2025-04-03 11:48 | DVHCONRES ---
Date Seen: April 03, 2025 Resident Creating Document: MOSHE ZHOU RESIDENT Referring Physician ROCCO Reason for Consultation YARON on CKD History of Present Illness This is a 64-year-old female with past medical history of hypertension, CHF, type 2 diabetes mellitus requiring insulin, COPD with no home oxygen, wheelchair-bound due to Charcot foot food in the right lower extremity. The patient presented to the ED due to acute abdominal distention and tenderness. The patient states that she has been going to [facility] for similar episodes p.r.n. in the past couple of weeks where she was diagnosed with abdominal wall cellulitis and was treated with antibiotics. Patient states that cellulitis improved with the antibiotics but the patient persisted having nausea, vomiting and mild to moderate abdominal tenderness. The patient states that abdominal pain is rated 5/10 on the pain scale and has been going on for the past two months. Initial chest x-ray was grossly unremarkable, a CT of the abdomen was performed showing possible ileus or hypomotility but no hydronephrosis. There was also diverticulosis without diverticulitis. Upon my examination, the patient is having diffuse abdominal tenderness to palpation that is more severe in the left lower quadrant. Today creatinine is 2.38 and BUN 31. Patient was cursing with mild hypokalemia this morning but potassium was replaced. TSH is slightly elevated at 4.92, we ordered free T4. UA came back showing no evidence of UTI but was showing 2+ protein, 1+ blood with no RBCs. Patient was started on NS at 150 cc/hour, IV levofloxacin and rest of home medications. The patient is currently on nasal cannula at 2 L of oxygen. There is a Johnson catheter placed. No peripheral edema at this time. Past Medical History Hypertension, type 2 diabetes mellitus requiring insulin, COPD on no home oxygen, CHF Past Surgical History Total hysterectomy, total left knee replacement Family History: Alcoholism G8 FATHER Diabetes mellitus G8 MOTHER G8 FATHER Family History Noncontributory. Social History Denies smoking, quit 20 years ago, denies alcohol or any drug consumption. Allergies: Coded Allergies: Clonazepam (Verified Allergy, Unknown, 09/17/24) Lactose (Verified Allergy, Unknown, 09/17/24) Lorazepam (Verified Allergy, Unknown, hallucinations, 04/02/25) Nitrofurantoin (Verified Allergy, Unknown, 09/17/24) Olanzapine (Verified Allergy, Unknown, 05/18/23) Penicillins (Verified Allergy, Unknown, 09/17/24) Sulfa Antibiotics (Verified Allergy, Unknown, 09/17/24) Sulfamethoxazole w/Trimethoprim (Verified Allergy, Unknown, 05/18/23) Uncoded Allergies: ADHESIVE (Allergy, Unknown, 09/17/24) FLU VACCINE (Allergy, Unknown, 05/18/23) TAPE (Allergy, Unknown, 09/17/24) TILACTASE (Allergy, Unknown, 09/17/24) Home Meds Active Scripts Prednisone (Prednisone) 20 Mg Tab, 20 MG PO BID for 5 Days, #10 MG Prov:LANCE C[place] RESIDENT 07/08/24 Reported Medications Potassium Chloride (Klor-Con M20) 20 Meq Tab, 1 TAB PO DAILY 07/07/24 Chlorthalidone (Chlorthalidone) 25 Mg Tab, 12.5 MG PO DAILY 07/07/24 Hydralazine Hcl (Hydralazine Hcl) 50 Mg Tab, 1 TAB PO TID 07/07/24 Gabapentin (Gabapentin) 300 Mg Cap, 3 CAP PO TID 07/07/24 Ergocalciferol (Vitamin D) 50,000 Unit Cap, 1 CAP PO QWEEKLY 07/07/24 Hydroxyzine Hcl (Hydroxyzine Hcl) 10 Mg Tab, 2 TAB PO TID 07/07/24 Oxycodone W/ Acetaminophen (Apap/Oxycodone) 1 Tab Tab, 1 TAB PO Q8HR [10/325 MG] 07/07/24 Pramipexole Dihydrochloride (Pramipexole Dihydrochlori) 0.375 Mg Tab, 0.5 MG PO DAILY, TAB 07/07/24 Furosemide (Furosemide) 80 Mg Tab, 80 MG PO QAM, TAB 07/07/24 Leflunomide (Arava) 20 Mg Tab, 10 MG PO DAILY, TAB 07/07/24 Estrogens, Conjugated (PREMARIN TABLET) 0.3 Mg Tb, 1 TAB PO DAILY, #30 TAB 11 Refills 07/07/24 Venlafaxine Hcl (Venlafaxine Hcl Er) 150 Mg Cap, 150 MG PO QAM, CAP 07/07/24 Rivaroxaban (XARELTO) 10 Mg Tab, 1 TAB PO DAILY, #10 TAB 07/07/24 Finerenone (Kerendia) 10 Mg Tab, 10 MG PO DAILY, TAB 07/07/24 Omeprazole (Gnp Omeprazole) 20 Mg Tab, 20 MG PO BID, TAB 07/07/24 Apremilast Base (Otezla) 30 Mg Tab, 30 MG PO BID, TAB 07/07/24 Metoprolol Succinate (Metoprolol Succinate Er) 50 Mg Tab, 100 MG PO DAILY, TAB 07/07/24 Atorvastatin Calcium (ATORVASTATIN CALCIUM) 20 Mg Tab, 1 TAB PO DAILY, #30 TAB 5 Refills 07/07/24 Memantine Hydrochloride (Memantine HCl) 10 Mg Tab, 10 MG PO BID, TAB 07/07/24 Quetiapine Fumerate (Seroquel) 50 Mg Tab, 150 MG PO, TAB 07/07/24 Amlodipine Besylate (Amlodipine Besylate) 10 Mg Tab, 1 TAB PO DAILY, #30 TAB 5 Refills 07/07/24 Discontinued Reported Medications Venlafaxine Hcl (Venlafaxine Hcl Er) 75 Mg Cap, 75 MG PO DAILY, CAP 07/07/24 Current Medications Current Medications Medications (Trade) Dose Ordered Sig/Patria Route PRN Reason Start Time Stop Time Status Last Admin Metoprolol Tartrate (Lopressor) 5 mg Q4HPRN PRN IV Sustained HR > 110 bpm 04/02/25 16:45 Review of Systems ROS Constitutional: Denies weight loss, fever and chills. HEENT: Denies changes in vision and hearing. Respiratory: Denies shortness of breath and cough Cardiovascular: Denies chest discomfort or palpitations GI: Reports mild to moderate abdominal tenderness diffusely that is worse in the left lower quadrant. Reported previous episode of nausea and vomiting : Denies dysuria and urinary frequency. Musculoskeletal: Denies myalgias and joint pain Skin: Denies rash and pruritus. Neurological: Denies dizziness, headache, vision or hearing problems Vital Signs Vital Signs Date Time Temp Pulse Resp B/P (MAP) Pulse Ox O2 Delivery O2 Flow Rate FiO2 04/03/25 09:42 98.1 93 18 132/72 (92) 98 98.1 04/03/25 08:20 Room Air* 0 21 Physical Exam Physical Examination General: Patient alert and oriented in person, place and time. Patient following commands. HEENT: Normocephalic, atraumatic, moist mucous membranes Respiratory/pulmonary: Clear lungs bilaterally, no associated crackles or wheezes. Cardiovascular: Normal heart sounds S1 and S2 with no associated murmurs Abdomen: Abdomen nondistended, there is mild to moderate tenderness to palpation diffusely that is worse in the left lower quadrant. No masses palpated at this time. There is a very minimal limp in the right upper quadrant that patient believes is due to chronic insulin injection. Extremities: There is no peripheral edema present at the lower extremities. There is right lower extremity deformity consistent with Charcot foot Peripheral Pulses: 3+ Radial (R). 3+ Radial (L). 3+ Dorsalis pedis (R). 3+ Dorsalis pedis(L) Skin: No rashes or pruritus, there is no sacral edema present at this time. Neurological: Intact cranial nerves with no focal neurologic deficits Labs/Diagnostic Data Labs Test 04/03/25 10:10 04/03/25 08:25 04/02/25 04:06 03/31/25 15:14 Range/Units White Blood Count 8.4 4.4-10.8 10^3/uL Red Blood Count 3.65 L 4.0-5.20 10^6/uL Hemoglobin 9.7 L 12.2-16.2 g/dL Hematocrit 30.3 L 36.0-46.0 % Mean Corpuscular Volume 82.9 # 80.0-100.0 fL Mean Corpuscular Hemoglobin 26.7 L 28.0-32.0 pg Mean Corpuscular Hemoglobin Concent 32.2 32.0-36.0 g/dL Red Cell Distribution Width 15.7 H 11.8-14.3 % Platelet Count 371 140-450 10^3/uL Mean Platelet Volume 7.5 6.9-10.8 fL Neutrophils (%) (Auto) 61.4 37.0-80.0 % Lymphocytes (%) (Auto) 26.6 10.0-50.0 % Monocytes (%) (Auto) 9.1 0.0-12.0 % Eosinophils (%) (Auto) 1.7 0.0-7.0 % Basophils (%) (Auto) 1.2 0.0-2.0 % Neutrophils # (Auto) 5.2 1.6-8.6 10 ^3/uL Lymphocytes # (Auto) 2.2 0.4-5.4 10 ^3/uL Monocytes # (Auto) 0.8 0-1.3 10 ^3/uL Eosinophils # (Auto) 0.1 0-0.8 10 ^3/uL Basophils # (Auto) 0.1 0-0.2 10 ^3/uL Nucleated Red Blood Cells 0.0 % Free Thyroxine (T4) Calculated 1.04 0.89-1.76 ng/dL POC Glucose 197 H 70-106 mg/dl Magnesium Level 1.9 1.6-2.6 mg/dL Troponin I High Sensitivity 5 </=34 ng/L Triglycerides Level 308 H < 150 mg/dL Cholesterol Level 173 < 200 mg/dL LDL Cholesterol 82 < 100 mg/dL HDL Cholesterol 36 L 40-59 mg/dL Thyroid Stimulating Hormone (TSH) 4.92 H 0.55-4.78 uIU/mL Urine Color Colorless Yellow Urine Clarity Clear Clear Urine pH 7.0 5.0-9.0 Urine Specific [place] 1.005 1.001-1.035 Urine Protein 2+ H Negative Urine Ketones Negative Negative Urine Blood 1+ H Negative /uL Urine Nitrite Negative Negative Urine Bilirubin Negative Negative Urine Urobilinogen Normal Negative mg/dL Urine Leukocyte Esterase Negative Negative /uL Urine RBC <1 0 - 4 /hpf Urine Microscopic WBC 0-5 /HPF Urine Squamous Epithelial Cells None seen <5 /hpf Urine Bacteria None seen None Seen /hpf Urine Glucose 4+ H Normal mg/dL Test 03/31/25 14:56 Range/Units Lactic Acid Level 1.8 0.4-2.0 mmol/L B-Type Natriuretic Peptide 56.01 0-100 pg/mL Lipase 22 12-53 U/L Microbiology Date/Time Source Procedure Growth Status 03/31/25 14:56 Blood Blood Culture - Preliminary NO GROWTH AFTER 48 HOURS OF INCUBATION. Resulted Assessment Assessment/plan Acute kidney injury on chronic kidney disease stage IIIB likely in the setting of hypertensive emergency Hypokalemia Acute abdominal pain likely due to ileus in the setting of possible diabetic gastroparesis Acute constipation Possible hypothyroidism Type 2 diabetes mellitus insulin dependent Acute on chronic diastolic heart failure COPD, stable Plan -Stop IV fluids NS -creatinine slightly worsening today and BUN 31 -potassium was 3.2 and was replaced with 50 mEq of effervescent potassium p.o. magnesium was normal range -Start metoclopramide 10mg Q8 in the setting of mild to moderate diabetic gastroparesis -F/U on diet per hospitalist -TSH was 4.92, we ordered FT4 since hypothyroidism might also be contributing with constipation and decrease intestinal motility -Control BP closely -Will continue monitoring Cr and BUN daily Goals of care discussed with the patient at bedside for >25min, FULL CODE Plan discussed with Dr. Guajardo Patient seen and examined by myself today on rounds with the medicine resident, I agree with his assessment and plan as documented above Plan discussed with: Patient MOSHE ZHOU RESIDENT April 03, 2025 11:48 HEBERT GUAJARDO MD April 03, 2025 17:32
[2025-04-03] MEDS: POTASSIUM EFFERVESENT TAB 25 MEQ PO ONE (12:13)
--- NOTE | 2025-04-03 13:40 | DVH ---
INDICATION: Acute kidney injury TECHNIQUE: Multiple real-time sonographic images of the kidneys and bladder were obtained. COMPARISON: US KIDNEY on DOS: 09/17/24 FINDINGS: The right kidney measures 10.5 cm in length, which is normal in size. There is normal echog enicity of the right kidney. No hydronephrosis. The left kidney measures 11.2 cm in length, which is normal in size. There is normal echogenicity of the left kidney. No hydronephrosis. Urinary bladder is decompressed with Johnson catheter. IMPRESSION: 1. Normal sonographic appearance of the kidneys. No hydronephrosis.
[2025-04-03] MEDS: hydrOXYzine HCL 10 MG TAB PO SCH (16:04)
[2025-04-03] MEDS: METOCLOPRAMIDE HCL 10 MG TAB PO SCH (17:09)
--- NOTE | 2025-04-03 17:29 | DVHPN2 ---
Progress Note Date Seen: April 03, 2025 Medical Necessity Reason Pt with a Central, PICC or Fol: No Subjective Review of Systems: CVS:Normal, RESPIRATORY:Normal Objective vital signs Vital Sign Date Time Temp Pulse Resp B/P (MAP) Pulse Ox O2 Delivery O2 Flow Rate FiO2 04/03/25 17:09 124/60 04/03/25 13:00 82 18 04/03/25 12:38 98.2 99 98.2 04/03/25 08:20 Room Air* 0 21 Total Intake and Output 04/02/25 04/02/25 04/03/25 15:00 23:00 07:00 Intake Total 595 ml 1160 ml 460 ml Output Total 400 ml 350 ml Balance 595 ml 760 ml 110 ml medications Current Medications Medications Dose Ordered Sig/Patria Route Start Time Stop Time Status Last Admin Dose Admin Diagnostic Test (Pha) 1 strip IQ4HR 04/01/25 00:00 04/03/25 16:00 1 STRIP Insulin Human Regular IQ4HR SC 04/01/25 00:00 04/03/25 16:55 4 UNITS Dextrose 50 ml UD PRN IV 03/31/25 22:30 Acetaminophen 325 mg Q4HP PRN PO 03/31/25 22:30 Acetaminophen/ Hydrocodone Bitart 1 tab Q4HP PRN PO 03/31/25 22:30 04/03/25 08:40 1 TAB Ondansetron HCl 4 mg Q4HP PRN IV 03/31/25 22:30 04/01/25 16:45 4 MG Morphine Sulfate 2 mg Q4HPRN PRN IV 03/31/25 22:30 04/03/25 12:24 2 MG Nitroglycerin 0.4 mg Q5MINP PRN SL 03/31/25 22:30 04/02/25 03:06 0.4 MG Morphine Sulfate 2 mg Q30M PRN IV 03/31/25 22:30 04/02/25 03:23 2 MG Hydralazine HCl 10 mg Q6HR IV 04/01/25 00:00 04/03/25 17:09 10 MG Levofloxacin/ Dextrose 100 ml @ 100 mls/hr Q48H IV 04/01/25 09:15 04/03/25 08:37 100 MLS/HR Atorvastatin Calcium 20 mg DAILY PO 04/02/25 10:00 04/03/25 08:40 20 MG Gabapentin 300 mg TID PO 04/01/25 22:00 04/03/25 15:35 300 MG Amlodipine Besylate 10 mg DAILY PO 04/02/25 10:00 04/03/25 08:42 10 MG Memantine 10 mg BID PO 04/01/25 22:00 04/03/25 08:40 10 MG Metoprolol Succinate 100 mg DAILY PO 04/02/25 10:00 04/03/25 08:41 100 MG Rivaroxaban 10 mg DAILY PO 04/02/25 10:00 04/03/25 08:40 10 MG Pramipexole Dihydrochloride 0.5 mg DAILY PO 04/02/25 10:00 04/03/25 08:42 0.5 MG Oxycodone/ Acetaminophen 1 tab Q8HR PO 04/01/25 22:30 04/03/25 15:44 1 TAB Oxycodone HCl 5 mg Q8HR PO 04/01/25 22:30 04/03/25 15:35 5 MG Lorazepam 0.5 mg Q8HP PRN IV 04/02/25 04:00 Metoprolol Tartrate 5 mg Q4HPRN PRN IV 04/02/25 16:45 Metoclopramide HCl 10 mg TIDAC PO 04/03/25 17:00 04/03/25 17:09 10 MG Hydroxyzine HCl 20 mg Q8H PO 04/03/25 16:00 04/03/25 16:04 20 MG Examination: GENERAL:Normal, LUNGS:Normal, CVS:Normal, ABDOMEN:Normal, SKIN:Normal, NEURO:Normal laboratory and microbiology Laboratory Tests 04/03/25 10:10 Test 04/03/25 10:10 Range/Units Serum Glucose 176 H 74-106 mg/dL Microbiology Date/Time Source Procedure Growth Status 03/31/25 14:56 Blood Blood Culture - Preliminary NO GROWTH AFTER 72 HOURS OF INCUBATION. Resulted Labs and/or images reviewed: Labs reviewed by me, Image(s) reviewed by me Problem List/Assessment/Plan Problem List/Assessment/Plan Problem List 1. Hypertensive urgency Monitor, antihypertensives 2. Ileus Monitor, NPO, GI consult, IV fluids 3. Dementia Monitor 4. Morbid obesity Monitor 5. Hyponatremia Monitor, daily labs 6. DM II with hyperglycemia Monitor, insulin ss 7. Leukocytosis, unspecified Monitor, IV abx 8. YARON with vasomotor nephropathy Assessment/Plan Subjective: Patient is awake and alert. Objective: Admitted for abdominal pain likely secondary to ileus; gastroparesis suspected. Longstanding history of uncontrolled diabetes. Creatinine is 2.12. Nephrology consulted. Patient had a bowel movement today. Small bowel series showed no obstruction. Plan: Continue IV hydration, replace electrolytes as needed, GI recommendations appreciated. We will order lactulose, possible discharge tomorrow, resume home health Plan discussed with: Patient, Other Plan discussed with: Patient My Orders My Orders Orders - NIRAJ MCCARTHY Procedure Category Date Status Time * Personal Service Representative CONS 04/03/25 Transmitted Consult 14:38 Dietary Evaluation Review Comments: 1. NPO secondary to ileus 2. Pt not to go >5 days NPO/CL diet only -> (Currently Day 2) 3. Consider prokinetic agent to stimulate GI motility; defer to MD 4. If unable to progress diet initiate nutrition support measures Expected Outcomes/Goals: Nutrition support vs. diet advancement. Date of Service: April 03, 2025 Billing Provider: TRAY SOUTH MD Common Visit Codes: [id number] INP/OBS CARE (MOD) NIRAJ MCCARTHY April 03, 2025 17:29
--- NOTE | 2025-04-03 23:04 | DVHPN2 ---
Progress Note - Dictate Date Seen: April 03, 2025 Medical Necessity Reason Pt with a Central, PICC or Fol: No Subjective No new complaints; sleeping comfortably vital signs Vital Sign Date Time Temp Pulse Resp B/P (MAP) Pulse Ox O2 Delivery O2 Flow Rate FiO2 04/03/25 17:09 124/60 04/03/25 13:00 82 18 04/03/25 12:38 98.2 99 98.2 04/03/25 08:20 Room Air* 0 21 Total Intake and Output 04/02/25 04/02/25 04/03/25 15:00 23:00 07:00 Intake Total 595 ml 1160 ml 460 ml Output Total 400 ml 350 ml Balance 595 ml 760 ml 110 ml medications Current Medications Medications Dose Ordered Sig/Patria Route Start Time Stop Time Status Last Admin Dose Admin Diagnostic Test (Pha) 1 strip IQ4HR 04/01/25 00:00 04/03/25 20:00 1 STRIP Insulin Human Regular IQ4HR SC 04/01/25 00:00 04/03/25 16:55 4 UNITS Dextrose 50 ml UD PRN IV 03/31/25 22:30 Acetaminophen 325 mg Q4HP PRN PO 03/31/25 22:30 Acetaminophen/ Hydrocodone Bitart 1 tab Q4HP PRN PO 03/31/25 22:30 04/03/25 08:40 1 TAB Ondansetron HCl 4 mg Q4HP PRN IV 03/31/25 22:30 04/01/25 16:45 4 MG Morphine Sulfate 2 mg Q4HPRN PRN IV 03/31/25 22:30 04/03/25 12:24 2 MG Nitroglycerin 0.4 mg Q5MINP PRN SL 03/31/25 22:30 04/02/25 03:06 0.4 MG Morphine Sulfate 2 mg Q30M PRN IV 03/31/25 22:30 04/02/25 03:23 2 MG Hydralazine HCl 10 mg Q6HR IV 04/01/25 00:00 04/03/25 17:09 10 MG Levofloxacin/ Dextrose 100 ml @ 100 mls/hr Q48H IV 04/01/25 09:15 04/03/25 08:37 100 MLS/HR Atorvastatin Calcium 20 mg DAILY PO 04/02/25 10:00 04/03/25 08:40 20 MG Gabapentin 300 mg TID PO 04/01/25 22:00 04/03/25 21:22 300 MG Amlodipine Besylate 10 mg DAILY PO 04/02/25 10:00 04/03/25 08:42 10 MG Memantine 10 mg BID PO 04/01/25 22:00 04/03/25 21:24 10 MG Metoprolol Succinate 100 mg DAILY PO 04/02/25 10:00 04/03/25 08:41 100 MG Rivaroxaban 10 mg DAILY PO 04/02/25 10:00 04/03/25 08:40 10 MG Pramipexole Dihydrochloride 0.5 mg DAILY PO 04/02/25 10:00 04/03/25 08:42 0.5 MG Oxycodone/ Acetaminophen 1 tab Q8HR PO 04/01/25 22:30 04/03/25 21:23 1 TAB Oxycodone HCl 5 mg Q8HR PO 04/01/25 22:30 04/03/25 21:23 5 MG Lorazepam 0.5 mg Q8HP PRN IV 04/02/25 04:00 Metoprolol Tartrate 5 mg Q4HPRN PRN IV 04/02/25 16:45 Metoclopramide HCl 10 mg TIDAC PO 04/03/25 17:00 04/03/25 17:09 10 MG Hydroxyzine HCl 20 mg Q8H PO 04/03/25 16:00 04/03/25 16:04 20 MG Lactulose 30 ml Q6HR PO 04/03/25 18:00 objective GENERAL:Normal, LUNGS:Normal, CVS:Normal, ABDOMEN:Normal, SKIN:Normal, NEURO:Normal laboratory and microbiology Laboratory Tests 04/03/25 10:10 Test 04/03/25 10:10 Range/Units Serum Glucose 176 H 74-106 mg/dL SBFT X RAY FINDINGS/IMPRESSION: Initial interpreter for the deaf view of the abdomen and pelvis appears demonstrates no acute process. Contrast is identified within the colon by 3 hours. This represents a Mild delay in small bowel transit time. No evidence of obstruction identified. Problems(with codes): (1) Hypertensive urgency (2) Paralytic ileus of small intestine (3) Abdominal pain (4) Nausea and vomiting (5) Metabolic encephalopathy Prognosis PLAN Pt has multiple BMs; ileus resolved Outpt elective colonoscopy for colon cancer screening Advance MARTHA Dietary Evaluation Review Comments: 1. NPO secondary to ileus 2. Pt not to go >5 days NPO/CL diet only -> (Currently Day 2) 3. Consider prokinetic agent to stimulate GI motility; defer to MD 4. If unable to progress diet initiate nutrition support measures Expected Outcomes/Goals: Nutrition support vs. diet advancement. Plan discussed with: Patient, Other (Yany Ochoa) MEENA CARBALLO MD April 03, 2025 23:03
[2025-04-04] VITALS (8 sets, daily range): BP systolic 115–142; BP diastolic 55–66; PULSE 73–85; RESP 17–19; TEMP 98.1–98.9; O2SAT 96–99
[2025-04-04] MEDS: LACTULOSE 20Gm/30ML SOLN PO SCH (00:17)
--- NOTE | 2025-04-04 06:55 | DVHPN2 ---
Progress Note - Dictate Date Seen: April 04, 2025 Medical Necessity Reason Pt with a Central, PICC or Fol: No vital signs Vital Sign Date Time Temp Pulse Resp B/P (MAP) Pulse Ox O2 Delivery O2 Flow Rate FiO2 04/04/25 06:06 133/66 04/04/25 05:00 98.2 83 17 97 98.2 04/03/25 20:00 Room Air* 0 21 Total Intake and Output 04/03/25 04/03/25 04/04/25 15:00 23:00 07:00 Intake Total 100 ml 500 ml 550 ml Output Total 450 ml 900 ml Balance 100 ml 50 ml -350 ml medications Current Medications Medications Dose Ordered Sig/Patria Route Start Time Stop Time Status Last Admin Dose Admin Diagnostic Test (Pha) 1 strip IQ4HR 04/01/25 00:00 04/04/25 04:00 1 STRIP Insulin Human Regular IQ4HR SC 04/01/25 00:00 04/03/25 16:55 4 UNITS Dextrose 50 ml UD PRN IV 03/31/25 22:30 Acetaminophen 325 mg Q4HP PRN PO 03/31/25 22:30 Acetaminophen/ Hydrocodone Bitart 1 tab Q4HP PRN PO 03/31/25 22:30 04/04/25 03:34 1 TAB Ondansetron HCl 4 mg Q4HP PRN IV 03/31/25 22:30 04/01/25 16:45 4 MG Morphine Sulfate 2 mg Q4HPRN PRN IV 03/31/25 22:30 04/03/25 12:24 2 MG Nitroglycerin 0.4 mg Q5MINP PRN SL 03/31/25 22:30 04/02/25 03:06 0.4 MG Morphine Sulfate 2 mg Q30M PRN IV 03/31/25 22:30 04/02/25 03:23 2 MG Hydralazine HCl 10 mg Q6HR IV 04/01/25 00:00 04/04/25 06:06 10 MG Levofloxacin/ Dextrose 100 ml @ 100 mls/hr Q48H IV 04/01/25 09:15 04/03/25 08:37 100 MLS/HR Atorvastatin Calcium 20 mg DAILY PO 04/02/25 10:00 04/03/25 08:40 20 MG Gabapentin 300 mg TID PO 04/01/25 22:00 04/04/25 06:08 300 MG Amlodipine Besylate 10 mg DAILY PO 04/02/25 10:00 04/03/25 08:42 10 MG Memantine 10 mg BID PO 04/01/25 22:00 04/03/25 21:24 10 MG Metoprolol Succinate 100 mg DAILY PO 04/02/25 10:00 04/03/25 08:41 100 MG Rivaroxaban 10 mg DAILY PO 04/02/25 10:00 04/03/25 08:40 10 MG Pramipexole Dihydrochloride 0.5 mg DAILY PO 04/02/25 10:00 04/03/25 08:42 0.5 MG Oxycodone/ Acetaminophen 1 tab Q8HR PO 04/01/25 22:30 04/04/25 06:07 1 TAB Oxycodone HCl 5 mg Q8HR PO 04/01/25 22:30 04/04/25 06:07 5 MG Lorazepam 0.5 mg Q8HP PRN IV 04/02/25 04:00 Metoprolol Tartrate 5 mg Q4HPRN PRN IV 04/02/25 16:45 Metoclopramide HCl 10 mg TIDAC PO 04/03/25 17:00 04/04/25 06:08 10 MG Hydroxyzine HCl 20 mg Q8H PO 04/03/25 16:00 04/04/25 00:16 20 MG Lactulose 30 ml Q6HR PO 04/03/25 18:00 04/04/25 00:22 30 ML laboratory and microbiology Laboratory Tests 04/03/25 10:10 Test 04/03/25 10:10 Range/Units Serum Glucose 176 H 74-106 mg/dL Assessment/Plan This is a 64-year old female known outside to Dr. Soto who initially presented with reported abdominal pain, distension, nausea and vomiting for approximately 2 months prior to initial presentation. During course of present hospitalization abdominal x-ray had revealed small-bowel fecal like contents questioning ileus/hypomotility which GI services were involved and had recommended subsequent small bowel series which had revealed no evidence for obstruction. While undergoing care within telemetry, patient had reportedly experienced an episode of chest discomfort (now resolved) which 12-lead electrocardiogram at time of event had revealed sinus tachycardia at 123bpm with evidence for acute ischemic changes. Initial HS troponin level was found normal at <3, with subsequent trend of <3, and 5. ProBNP level was found normal at 56. LDL was found to be 82. Of note, previous cardiac catheterization (12/28/2017) had revealed no obstructive disease. Subsequent NST (05/28/2023) had revealed normal LV perfusion. Patient had underwent recent hospitalization at [facility] which Echocardiogram (01/30/2025) at that time had revealed a preserved LVEF of 63%, mildly increased wall thickness, mild septal thickening, with no underlying valvular pathology. At present, denies any further chest pain. Denies any further cardiac related symptoms. As the patient had experienced a brief episode of chest pain while undergoing care within telemetry, Cardiology services were involved for cardiac aspects of care. Reported past medical history includes chronic diastolic heart failure, hypertension, hyperlipidemia, diabetes mellitus, diabetic ketoacidosis, spinal fracture, depression, diabetic neuropathy, previous history of pulmonary embolism on chronic anticoagulation, dementia, morbid obesity, non-adherent to medical therapy, cataract and status post surgical correction Cardiac Catheterization: (12/28/2017) revealed The following findings were noted. Left main: No obstructive coronary artery disease noted. Left anterior descending artery and its diagonal branches: No obstructive coronary artery disease noted. Left circumflex and its obtuse margina branches: No obstructive coronary artery disease noted. Right coronary artery and its PDA and posterolateral branches: No obstructive coronary artery disease noted. Dominance: Right sided dominance. Complications No immediate complications noted. The patient tolerated the procedure well. Assessment: The coronary Arterial angiography showing no obstructive disease. Recommendations: Trial of Medical therapy Nuclear Stress Test: (05/28/2023) revealed LV perfusion is normal. There is no evidence of inducible ischemia. Echocardiogram: (08/09/2024) revealed LV EF is 70%, assessed by visual estimation. Left Ventricle: Normal systolic function. Left ventricle stroke volume index is 38 mL/m2. There is normal left atrial pressure and grade I left ventricular diastolic dysfunction Echocardiogram: (01/30/2025) revealed a preserved LVEF of 63%, mildly increased wall thickness, mild septal thickening, with no underlying valvular pathology. Chest x-ray revealed no evidence for acute cardiopulmonary abnormalities TSH of 4.92 with Free T4 of 1.04 Sinus tachycardia, resolved Abdominal pain, likely secondary to ileus Chest pain (HS Troponins <3, <3, 5), ACS not considered Chronic diastolic heart failure, LVEF of 63% ([facility] 01/30/2025) Diabetes mellitus, questionable concern for gastroparesis Hypertensive emergency, improving Leukocytosis, resolved Chronic kidney disease Morbid obesity, BMI 40 Medical non-adherence Hyperlipidemia CARDIAC SUGGESTIONS FOR MANAGEMENT: As ACS is not considered, no ischemic workup indicated at this point To proceed with optimized medical therapy and risk factor modification Appears euvolemic at present, ok to withhold diuretic therapy at present Proceed with close observation for overt signs of fluid overload Proceed with strict intakes, outputs, and daily weights On Xarelto 10mg daily for previous history of PE On IV antibiotics as managed by primary team Metoprolol Succinate 100mg once daily PRN IV Hydralazine q 6 hours PRN IV Lopressor q 4 hours Amlodipine 10mg once daily Atorvastatin 20mg daily Follow up GI/Nephrology Proceed with close rate and rhythm surveillance Proceed with close hemodynamic surveillance Proceed with optimized blood pressure control Transfuse to sustain HGB level above 7.0 Sustain Magnesium level greater than 2.0 Sustain Potassium level greater than 4.0 Follow up renal function and electrolytes Counseled at length on importance of adherence to medical therapy Management of diabetes mellitus as per primary team Management of co-morbidities as per primary team Management of ileus as per primary team/GI Management of CKD as per Nephrology Management in telemetry Follow up customer service sales consultant recommendations Will proceed to follow from a cardiac perspective Further recommendations per clinical progression All available diagnostic labs, EKG's, and images were personally reviewed Patient's status, findings, and plan of care was reviewed and discussed with supervising physician Dr. Anaya, who is in agreement with current plan of care. Plan of care discussed with and agreed upon by patient / primary RN Prognosis: Guarded Thank you for allowing me to participate in the care of this patient. Further recommendations based on patients clinical course and progression, primary attending, and other consultants. Will continue to follow with primary attending. If you have any questions or concerns, please do not hesitate to contact me. A total of 75 minutes was spent reviewing the patient record, examining the patient, making a diagnostic and therapeutic plan, discussing this plan with medical personnel, following up on diagnostic studies and following the patient for clinical stability excluding any and all procedures. At least 50% of this time was spent in direct, [id number] contact. Dietary Evaluation Review Comments: 1. NPO secondary to ileus 2. Pt not to go >5 days NPO/CL diet only -> (Currently Day 2) 3. Consider prokinetic agent to stimulate GI motility; defer to MD 4. If unable to progress diet initiate nutrition support measures Expected Outcomes/Goals: Nutrition support vs. diet advancement. Plan discussed with: Patient TI WATTERS NP April 04, 2025 06:55
[2025-04-04 09:44] LABS: Basophils # (auto) 0.1 10 ^3/uL (0-0.2); Basophils % (auto) 0.9 % (0.0-2.0); Eosinophils # (auto) 0.4 10 ^3/uL (0-0.8); Eosinophils % (auto) 4.8 % (0.0-7.0); Hematocrit 30.9 % (36.0-46.0); Hemoglobin 10.2 g/dL (12.2-16.2); Lymphocytes # (auto) 2.4 10 ^3/uL (0.4-5.4); Lymphocytes % (auto) 27.4 % (10.0-50.0); Mean Corpuscular Hemoglobin 26.4 pg (28.0-32.0); Mean Corpuscular Hgb Conc. 33.1 g/dL (32.0-36.0); Mean Corpuscular Volume 79.9 fL (80.0-100.0); Monocytes # (auto) 0.7 10 ^3/uL (0-1.3); Monocytes % (auto) 8.4 % (0.0-12.0); Neutrophils # (auto) 5.2 10 ^3/uL (1.6-8.6); Neutrophils % (auto) 58.5 % (37.0-80.0); Platelet Count (auto) 389 10^3/uL (140-450); Red Blood Cells 3.86 10^6/uL (4.0-5.20); Red Cell Distribution Width 15.2 % (11.8-14.3); White Blood Cell 8.9 10^3/uL (4.4-10.8)
[2025-04-04 10:00] LABS: Alanine Aminotransferase 22 U/L (7-40); Anion Gap 9 (5-15); Aspartate Aminotransferase 25 U/L (13-40); BUN/Creatinine Ratio 11.7 (10.0-20.0); Calcium 8.8 mg/dL (8.7-10.4); Carbon Dioxide 21 mmol/L (20-31); Chloride 105 mmol/L (98-107); Potassium 4.3 mmol/L (3.5-5.1)
[2025-04-04 10:03] LABS: Albumin 3.1 g/dL (3.2-4.8); Alkaline Phosphatase 165 U/L (46-116); Bilirubin, Total 0.3 mg/dL (0.2-1.0); Blood Urea Nitrogen 28 mg/dL (9-23); Glucose 203 mg/dL (74-106); Sodium 135 mmol/L (136-145); Total Protein 5.3 g/dL (5.7-8.2)
--- NOTE | 2025-04-04 10:06 | DVHPN2 ---
Progress Note Date Seen: April 04, 2025 Medical Necessity Reason Pt with a Central, PICC or Fol: No Subjective Patient reports: No new complaints Other Systems: Patient seen and examined by myself today in follow-up Objective vital signs Vital Sign Date Time Temp Pulse Resp B/P (MAP) Pulse Ox O2 Delivery O2 Flow Rate FiO2 04/04/25 08:43 83 17 142/57 04/04/25 08:40 98.5 99 98.5 04/03/25 20:00 Room Air* 0 21 Total Intake and Output 04/03/25 04/03/25 04/04/25 15:00 23:00 07:00 Intake Total 100 ml 500 ml 550 ml Output Total 450 ml 900 ml Balance 100 ml 50 ml -350 ml medications Current Medications Medications Dose Ordered Sig/Patria Route Start Time Stop Time Status Last Admin Dose Admin Diagnostic Test (Pha) 1 strip IQ4HR 04/01/25 00:00 04/04/25 08:13 1 STRIP Insulin Human Regular IQ4HR SC 04/01/25 00:00 04/03/25 16:55 4 UNITS Dextrose 50 ml UD PRN IV 03/31/25 22:30 Acetaminophen 325 mg Q4HP PRN PO 03/31/25 22:30 Acetaminophen/ Hydrocodone Bitart 1 tab Q4HP PRN PO 03/31/25 22:30 04/04/25 03:34 1 TAB Ondansetron HCl 4 mg Q4HP PRN IV 03/31/25 22:30 04/01/25 16:45 4 MG Morphine Sulfate 2 mg Q4HPRN PRN IV 03/31/25 22:30 04/04/25 08:43 2 MG Nitroglycerin 0.4 mg Q5MINP PRN SL 03/31/25 22:30 04/02/25 03:06 0.4 MG Morphine Sulfate 2 mg Q30M PRN IV 03/31/25 22:30 04/02/25 03:23 2 MG Hydralazine HCl 10 mg Q6HR IV 04/01/25 00:00 04/04/25 06:06 10 MG Levofloxacin/ Dextrose 100 ml @ 100 mls/hr Q48H IV 04/01/25 09:15 04/03/25 08:37 100 MLS/HR Atorvastatin Calcium 20 mg DAILY PO 04/02/25 10:00 04/03/25 08:40 20 MG Gabapentin 300 mg TID PO 04/01/25 22:00 04/04/25 06:08 300 MG Amlodipine Besylate 10 mg DAILY PO 04/02/25 10:00 04/03/25 08:42 10 MG Memantine 10 mg BID PO 04/01/25 22:00 04/03/25 21:24 10 MG Metoprolol Succinate 100 mg DAILY PO 04/02/25 10:00 04/03/25 08:41 100 MG Rivaroxaban 10 mg DAILY PO 04/02/25 10:00 04/03/25 08:40 10 MG Pramipexole Dihydrochloride 0.5 mg DAILY PO 04/02/25 10:00 04/03/25 08:42 0.5 MG Oxycodone/ Acetaminophen 1 tab Q8HR PO 04/01/25 22:30 04/04/25 06:07 1 TAB Oxycodone HCl 5 mg Q8HR PO 04/01/25 22:30 04/04/25 06:07 5 MG Lorazepam 0.5 mg Q8HP PRN IV 04/02/25 04:00 Metoprolol Tartrate 5 mg Q4HPRN PRN IV 04/02/25 16:45 Metoclopramide HCl 10 mg TIDAC PO 04/03/25 17:00 04/04/25 06:08 10 MG Hydroxyzine HCl 20 mg Q8H PO 04/03/25 16:00 04/04/25 08:13 20 MG Lactulose 30 ml Q6HR PO 04/03/25 18:00 04/04/25 00:22 30 ML Examination: LUNGS:Normal, CVS:Normal, MSK:Normal laboratory and microbiology Laboratory Tests 04/04/25 08:52 Test 04/04/25 08:52 Range/Units Serum Glucose Pending Microbiology Date/Time Source Procedure Growth Status 03/31/25 14:56 Blood Blood Culture - Preliminary NO GROWTH AFTER 72 HOURS OF INCUBATION. Resulted Problem List/Assessment/Plan Problem List/Assessment/Plan Acute kidney injury superimposed Chronic Kidney Disease stage IIIB secondary hemodynamic mediated Hypokalemia Abdominal pain Dehydration Constipation Diabetes mellitus type COPD Anemia of chronic kidney disease Recommendations Kidney function slightly worsened today Increased urine output Strict I&Os I agree with IV fluid hydration KCL replacement Insulin sliding scale Renal diet Check urine protein excretion and urine electrolytes Kidney ultrasound reported within normal limits We will continue to follow up Plan discussed with: Patient Dietary Evaluation Review Comments: 1. NPO secondary to ileus 2. Pt not to go >5 days NPO/CL diet only -> (Currently Day 2) 3. Consider prokinetic agent to stimulate GI motility; defer to MD 4. If unable to progress diet initiate nutrition support measures Expected Outcomes/Goals: Nutrition support vs. diet advancement. HEBERT CONTRERAS MD April 04, 2025 10:06
--- NOTE | 2025-04-04 15:09 | DVHPN2 ---
Progress Note Date Seen: April 04, 2025 Medical Necessity Reason Pt with a Central, PICC or Fol: No Subjective Review of Systems: CVS:Normal, RESPIRATORY:Normal, GI:Normal Objective vital signs Vital Sign Date Time Temp Pulse Resp B/P (MAP) Pulse Ox O2 Delivery O2 Flow Rate FiO2 04/04/25 13:00 98.1 85 18 137/63 (87) 96 98.1 04/04/25 08:00 Nasal Cannula* 2 28 Total Intake and Output 04/03/25 04/03/25 04/04/25 15:00 23:00 07:00 Intake Total 100 ml 500 ml 550 ml Output Total 450 ml 900 ml Balance 100 ml 50 ml -350 ml medications Current Medications Medications Dose Ordered Sig/Patria Route Start Time Stop Time Status Last Admin Dose Admin Diagnostic Test (Pha) 1 strip IQ4HR 04/01/25 00:00 04/04/25 11:51 1 STRIP Insulin Human Regular IQ4HR SC 04/01/25 00:00 04/04/25 12:35 8 UNITS Dextrose 50 ml UD PRN IV 03/31/25 22:30 Acetaminophen 325 mg Q4HP PRN PO 03/31/25 22:30 Acetaminophen/ Hydrocodone Bitart 1 tab Q4HP PRN PO 03/31/25 22:30 04/04/25 03:34 1 TAB Ondansetron HCl 4 mg Q4HP PRN IV 03/31/25 22:30 04/01/25 16:45 4 MG Morphine Sulfate 2 mg Q4HPRN PRN IV 03/31/25 22:30 04/04/25 08:43 2 MG Nitroglycerin 0.4 mg Q5MINP PRN SL 03/31/25 22:30 04/02/25 03:06 0.4 MG Morphine Sulfate 2 mg Q30M PRN IV 03/31/25 22:30 04/02/25 03:23 2 MG Hydralazine HCl 10 mg Q6HR IV 04/01/25 00:00 04/04/25 06:06 10 MG Levofloxacin/ Dextrose 100 ml @ 100 mls/hr Q48H IV 04/01/25 09:15 04/03/25 08:37 100 MLS/HR Atorvastatin Calcium 20 mg DAILY PO 04/02/25 10:00 04/04/25 11:46 20 MG Gabapentin 300 mg TID PO 04/01/25 22:00 04/04/25 06:08 300 MG Amlodipine Besylate 10 mg DAILY PO 04/02/25 10:00 04/04/25 11:48 10 MG Memantine 10 mg BID PO 04/01/25 22:00 04/04/25 11:46 10 MG Metoprolol Succinate 100 mg DAILY PO 04/02/25 10:00 04/04/25 11:47 100 MG Rivaroxaban 10 mg DAILY PO 04/02/25 10:00 04/04/25 11:49 10 MG Pramipexole Dihydrochloride 0.5 mg DAILY PO 04/02/25 10:00 04/04/25 12:33 0.5 MG Oxycodone/ Acetaminophen 1 tab Q8HR PO 04/01/25 22:30 04/04/25 06:07 1 TAB Oxycodone HCl 5 mg Q8HR PO 04/01/25 22:30 04/04/25 06:07 5 MG Lorazepam 0.5 mg Q8HP PRN IV 04/02/25 04:00 Metoprolol Tartrate 5 mg Q4HPRN PRN IV 04/02/25 16:45 Metoclopramide HCl 10 mg TIDAC PO 04/03/25 17:00 04/04/25 11:48 10 MG Hydroxyzine HCl 20 mg Q8H PO 04/03/25 16:00 04/04/25 08:13 20 MG Lactulose 30 ml Q6HR PO 04/03/25 18:00 04/04/25 00:22 30 ML Examination: GENERAL:Normal, LUNGS:Normal, CVS:Normal, ABDOMEN:Normal, SKIN:Normal, NEURO:Normal laboratory and microbiology Laboratory Tests 04/04/25 08:52 Test 04/04/25 08:52 Range/Units Serum Glucose 203 H 74-106 mg/dL Microbiology Date/Time Source Procedure Growth Status 03/31/25 14:56 Blood Blood Culture - Preliminary NO GROWTH AFTER 72 HOURS OF INCUBATION. Resulted Labs and/or images reviewed: Labs reviewed by me, Image(s) reviewed by me Problem List/Assessment/Plan Problem List/Assessment/Plan Problem List 1. Hypertensive urgency Monitor, antihypertensives 2. Ileus Monitor, NPO, GI consult, IV fluids 3. Dementia Monitor 4. Morbid obesity Monitor 5. Hyponatremia Monitor, daily labs 6. DM II with hyperglycemia Monitor, insulin ss 7. Leukocytosis, unspecified Monitor, IV abx 8. YARON with vasomotor nephropathy Assessment/Plan Subjective: Patient is awake and alert. Objective: Admitted for abdominal pain likely secondary to ileus; gastroparesis suspected. Longstanding history of uncontrolled diabetes. Creatinine is 2.39. Nephrology consulted. Patient had a bowel movement today. Small bowel series showed no obstruction. We will place patient on full liquids patient denies any abdominal pain tomorrow we will discharge Plan: Continue IV hydration, replace electrolytes as needed, GI recommendations appreciated. We will order lactulose, resume home health, advance diet as tolerated possible discharge tomorrow Plan discussed with: Patient, Other Plan discussed with: Patient My Orders My Orders Orders - NIRAJ MCCARTHY Procedure Category Date Status Time Lactulose Oral PHA 04/03/25 In Process 18:00 Full Liq Diet DIET 04/04/25 Transmitted Lunch Dietary Evaluation Review Comments: 1. NPO secondary to ileus 2. Pt not to go >5 days NPO/CL diet only -> (Currently Day 2) 3. Consider prokinetic agent to stimulate GI motility; defer to MD 4. If unable to progress diet initiate nutrition support measures Expected Outcomes/Goals: Nutrition support vs. diet advancement. Date of Service: April 04, 2025 Billing Provider: TRAY SOUTH MD Common Visit Codes: [id number] INP/OBS CARE (MOD) NIRAJ MCCARTHY April 04, 2025 15:09
--- NOTE | 2025-04-04 16:57 | DVHPN2 ---
Progress Note - Dictate Date Seen: April 04, 2025 Medical Necessity Reason Pt with a Central, PICC or Fol: No Subjective No new complaints; sleeping comfortably For bowel movements recorded yesterday No evidence of obstruction Ileus is resolving vital signs Vital Sign Date Time Temp Pulse Resp B/P (MAP) Pulse Ox O2 Delivery O2 Flow Rate FiO2 04/04/25 13:00 98.1 85 18 137/63 (87) 96 98.1 04/04/25 08:00 Nasal Cannula* 2 28 Total Intake and Output 04/03/25 04/03/25 04/04/25 15:00 23:00 07:00 Intake Total 100 ml 500 ml 550 ml Output Total 450 ml 900 ml Balance 100 ml 50 ml -350 ml medications Current Medications Medications Dose Ordered Sig/Patria Route Start Time Stop Time Status Last Admin Dose Admin Diagnostic Test (Pha) 1 strip IQ4HR 04/01/25 00:00 04/04/25 16:00 1 STRIP Insulin Human Regular IQ4HR SC 04/01/25 00:00 04/04/25 12:35 8 UNITS Dextrose 50 ml UD PRN IV 03/31/25 22:30 Acetaminophen 325 mg Q4HP PRN PO 03/31/25 22:30 Acetaminophen/ Hydrocodone Bitart 1 tab Q4HP PRN PO 03/31/25 22:30 04/04/25 03:34 1 TAB Ondansetron HCl 4 mg Q4HP PRN IV 03/31/25 22:30 04/01/25 16:45 4 MG Morphine Sulfate 2 mg Q4HPRN PRN IV 03/31/25 22:30 04/04/25 08:43 2 MG Nitroglycerin 0.4 mg Q5MINP PRN SL 03/31/25 22:30 04/02/25 03:06 0.4 MG Morphine Sulfate 2 mg Q30M PRN IV 03/31/25 22:30 04/02/25 03:23 2 MG Hydralazine HCl 10 mg Q6HR IV 04/01/25 00:00 04/04/25 06:06 10 MG Levofloxacin/ Dextrose 100 ml @ 100 mls/hr Q48H IV 04/01/25 09:15 04/03/25 08:37 100 MLS/HR Atorvastatin Calcium 20 mg DAILY PO 04/02/25 10:00 04/04/25 11:46 20 MG Gabapentin 300 mg TID PO 04/01/25 22:00 04/04/25 16:49 300 MG Amlodipine Besylate 10 mg DAILY PO 04/02/25 10:00 04/04/25 11:48 10 MG Memantine 10 mg BID PO 04/01/25 22:00 04/04/25 11:46 10 MG Metoprolol Succinate 100 mg DAILY PO 04/02/25 10:00 04/04/25 11:47 100 MG Rivaroxaban 10 mg DAILY PO 04/02/25 10:00 04/04/25 11:49 10 MG Pramipexole Dihydrochloride 0.5 mg DAILY PO 04/02/25 10:00 04/04/25 12:33 0.5 MG Oxycodone/ Acetaminophen 1 tab Q8HR PO 04/01/25 22:30 04/04/25 06:07 1 TAB Oxycodone HCl 5 mg Q8HR PO 04/01/25 22:30 04/04/25 06:07 5 MG Lorazepam 0.5 mg Q8HP PRN IV 04/02/25 04:00 Metoprolol Tartrate 5 mg Q4HPRN PRN IV 04/02/25 16:45 Metoclopramide HCl 10 mg TIDAC PO 04/03/25 17:00 04/04/25 16:50 10 MG Hydroxyzine HCl 20 mg Q8H PO 04/03/25 16:00 04/04/25 16:49 20 MG Lactulose 30 ml Q6HR PO 04/03/25 18:00 04/04/25 00:22 30 ML objective GENERAL:Normal, LUNGS:Normal, CVS:Normal, ABDOMEN:Normal, SKIN:Normal, NEURO:Normal laboratory and microbiology Laboratory Tests 04/04/25 08:52 Test 04/04/25 08:52 Range/Units Serum Glucose 203 H 74-106 mg/dL Problems(with codes): (1) Metabolic encephalopathy (2) Paralytic ileus of small intestine (3) Abdominal pain (4) Nausea and vomiting (5) Hyponatremia (6) CRF (chronic renal failure) Prognosis Plan Continue supportive care Start full liquid diet advance as tolerated IV Reglan 5 mg q.8 hours Mild gastroparesis suspected. Longstanding history of uncontrolled diabetes. Creatinine is 2.39. Nephrology consulted. Patient had a bowel movement today. Outpatient elective colonoscopy if not recently done Dietary Evaluation Review Comments: 1. NPO secondary to ileus 2. Pt not to go >5 days NPO/CL diet only -> (Currently Day 2) 3. Consider prokinetic agent to stimulate GI motility; defer to MD 4. If unable to progress diet initiate nutrition support measures Expected Outcomes/Goals: Nutrition support vs. diet advancement. Plan discussed with: Other (Yany Ochoa) MEENA CARBALLO MD April 04, 2025 16:57
[2025-04-05 01:00] VITALS: BP 127/57; PULSE 78; RESP 18; TEMP 97.6; O2SAT 91
[2025-04-05 05:00] VITALS: BP 131/56; PULSE 73; RESP 18; TEMP 97.8; O2SAT 94
--- NOTE | 2025-04-05 06:48 | DVHPN2 ---
Progress Note - Dictate Date Seen: April 05, 2025 Medical Necessity Reason Pt with a Central, PICC or Fol: No vital signs Vital Sign Date Time Temp Pulse Resp B/P (MAP) Pulse Ox O2 Delivery O2 Flow Rate FiO2 04/05/25 06:15 131/56 04/05/25 05:00 97.8 73 18 94 97.8 04/04/25 20:00 Room Air* 0 21 Total Intake and Output 04/04/25 04/04/25 04/05/25 15:00 23:00 07:00 Intake Total 326 ml 750 ml 1230 ml Output Total 1100 ml 1300 ml Balance 326 ml -350 ml -70 ml medications Current Medications Medications Dose Ordered Sig/Patria Route Start Time Stop Time Status Last Admin Dose Admin Diagnostic Test (Pha) 1 strip IQ4HR 04/01/25 00:00 04/05/25 04:00 1 STRIP Insulin Human Regular IQ4HR SC 04/01/25 00:00 04/05/25 05:10 2 UNITS Dextrose 50 ml UD PRN IV 03/31/25 22:30 Acetaminophen 325 mg Q4HP PRN PO 03/31/25 22:30 Acetaminophen/ Hydrocodone Bitart 1 tab Q4HP PRN PO 03/31/25 22:30 04/04/25 03:34 1 TAB Ondansetron HCl 4 mg Q4HP PRN IV 03/31/25 22:30 04/01/25 16:45 4 MG Morphine Sulfate 2 mg Q4HPRN PRN IV 03/31/25 22:30 04/04/25 08:43 2 MG Nitroglycerin 0.4 mg Q5MINP PRN SL 03/31/25 22:30 04/02/25 03:06 0.4 MG Morphine Sulfate 2 mg Q30M PRN IV 03/31/25 22:30 04/02/25 03:23 2 MG Hydralazine HCl 10 mg Q6HR IV 04/01/25 00:00 04/05/25 06:15 10 MG Levofloxacin/ Dextrose 100 ml @ 100 mls/hr Q48H IV 04/01/25 09:15 04/03/25 08:37 100 MLS/HR Atorvastatin Calcium 20 mg DAILY PO 04/02/25 10:00 04/04/25 11:46 20 MG Gabapentin 300 mg TID PO 04/01/25 22:00 04/05/25 06:14 300 MG Amlodipine Besylate 10 mg DAILY PO 04/02/25 10:00 04/04/25 11:48 10 MG Memantine 10 mg BID PO 04/01/25 22:00 04/04/25 21:45 10 MG Metoprolol Succinate 100 mg DAILY PO 04/02/25 10:00 04/04/25 11:47 100 MG Rivaroxaban 10 mg DAILY PO 04/02/25 10:00 04/04/25 11:49 10 MG Pramipexole Dihydrochloride 0.5 mg DAILY PO 04/02/25 10:00 04/04/25 12:33 0.5 MG Oxycodone/ Acetaminophen 1 tab Q8HR PO 04/01/25 22:30 04/05/25 06:14 1 TAB Oxycodone HCl 5 mg Q8HR PO 04/01/25 22:30 04/05/25 06:14 5 MG Lorazepam 0.5 mg Q8HP PRN IV 04/02/25 04:00 Metoprolol Tartrate 5 mg Q4HPRN PRN IV 04/02/25 16:45 Metoclopramide HCl 10 mg TIDAC PO 04/03/25 17:00 04/05/25 06:44 10 MG Hydroxyzine HCl 20 mg Q8H PO 04/03/25 16:00 04/05/25 01:36 20 MG Lactulose 30 ml Q6HR PO 04/03/25 18:00 04/04/25 00:22 30 ML laboratory and microbiology Laboratory Tests 04/04/25 08:52 Test 04/04/25 08:52 Range/Units Serum Glucose 203 H 74-106 mg/dL Assessment/Plan This is a 64-year old female known outside to Dr. Soto who initially presented with reported abdominal pain, distension, nausea and vomiting for approximately 2 months prior to initial presentation. During course of present hospitalization abdominal x-ray had revealed small-bowel fecal like contents questioning ileus/hypomotility which GI services were involved and had recommended subsequent small bowel series which had revealed no evidence for obstruction. While undergoing care within telemetry, patient had reportedly experienced an episode of chest discomfort (now resolved) which 12-lead electrocardiogram at time of event had revealed sinus tachycardia at 123bpm with evidence for acute ischemic changes. Initial HS troponin level was found normal at <3, with subsequent trend of <3, and 5. ProBNP level was found normal at 56. LDL was found to be 82. Of note, previous cardiac catheterization (12/28/2017) had revealed no obstructive disease. Subsequent NST (05/28/2023) had revealed normal LV perfusion. Patient had underwent recent hospitalization at [facility] which Echocardiogram (01/30/2025) at that time had revealed a preserved LVEF of 63%, mildly increased wall thickness, mild septal thickening, with no underlying valvular pathology. At present, denies any further chest pain. Denies any further cardiac related symptoms. As the patient had experienced a brief episode of chest pain while undergoing care within telemetry, Cardiology services were involved for cardiac aspects of care. No overnight events, patient remains hemodynamically stable. Reported past medical history includes chronic diastolic heart failure, hypertension, hyperlipidemia, diabetes mellitus, diabetic ketoacidosis, spinal fracture, depression, diabetic neuropathy, previous history of pulmonary embolism on chronic anticoagulation, dementia, morbid obesity, non-adherent to medical therapy, cataract and status post surgical correction Cardiac Catheterization: (12/28/2017) revealed The following findings were noted. Left main: No obstructive coronary artery disease noted. Left anterior descending artery and its diagonal branches: No obstructive coronary artery disease noted. Left circumflex and its obtuse margina branches: No obstructive coronary artery disease noted. Right coronary artery and its PDA and posterolateral branches: No obstructive coronary artery disease noted. Dominance: Right sided dominance. Complications No immediate complications noted. The patient tolerated the procedure well. Assessment: The coronary Arterial angiography showing no obstructive disease. Recommendations: Trial of Medical therapy Nuclear Stress Test: (05/28/2023) revealed LV perfusion is normal. There is no evidence of inducible ischemia. Echocardiogram: (08/09/2024) revealed LV EF is 70%, assessed by visual estimation. Left Ventricle: Normal systolic function. Left ventricle stroke volume index is 38 mL/m2. There is normal left atrial pressure and grade I left ventricular diastolic dysfunction Echocardiogram: (01/30/2025) revealed a preserved LVEF of 63%, mildly increased wall thickness, mild septal thickening, with no underlying valvular pathology. Chest x-ray revealed no evidence for acute cardiopulmonary abnormalities TSH of 4.92 with Free T4 of 1.04 Sinus tachycardia, resolved Abdominal pain, likely secondary to ileus Chest pain (HS Troponins <3, <3, 5), ACS not considered Chronic diastolic heart failure, LVEF of 63% ([facility] 01/30/2025) Diabetes mellitus, questionable concern for gastroparesis Hypertensive emergency, improving Leukocytosis, resolved Chronic kidney disease Morbid obesity, BMI 40 Medical non-adherence Hyperlipidemia CARDIAC SUGGESTIONS FOR MANAGEMENT: As ACS is not considered, no ischemic workup indicated at this point To proceed with optimized medical therapy and risk factor modification Appears euvolemic at present, ok to withhold diuretic therapy at present Proceed with close observation for overt signs of fluid overload Proceed with strict intakes, outputs, and daily weights On Xarelto 10mg daily for previous history of PE On IV antibiotics as managed by primary team Metoprolol Succinate 100mg once daily PRN IV Hydralazine q 6 hours PRN IV Lopressor q 4 hours Amlodipine 10mg once daily Atorvastatin 20mg daily Follow up GI/Nephrology Proceed with close rate and rhythm surveillance Proceed with close hemodynamic surveillance Proceed with optimized blood pressure control Transfuse to sustain HGB level above 7.0 Sustain Magnesium level greater than 2.0 Sustain Potassium level greater than 4.0 Follow up renal function and electrolytes Counseled at length on importance of adherence to medical therapy Management of diabetes mellitus as per primary team Management of co-morbidities as per primary team Management of ileus as per primary team/GI Management of CKD as per Nephrology Management in telemetry Follow up insurance healthcare consultant recommendations Will proceed to follow from a cardiac perspective Further recommendations per clinical progression All available diagnostic labs, EKG's, and images were personally reviewed Patient's status, findings, and plan of care was reviewed and discussed with supervising physician Dr. Anaya, who is in agreement with current plan of care. Plan of care discussed with and agreed upon by patient / primary RN Prognosis: Guarded Thank you for allowing me to participate in the care of this patient. Further recommendations based on patients clinical course and progression, primary attending, and other consultants. Will continue to follow with primary attending. If you have any questions or concerns, please do not hesitate to contact me. A total of 75 minutes was spent reviewing the patient record, examining the patient, making a diagnostic and therapeutic plan, discussing this plan with medical personnel, following up on diagnostic studies and following the patient for clinical stability excluding any and all procedures. At least 50% of this time was spent in direct, [id number] contact. Dietary Evaluation Review Comments: 1. NPO secondary to ileus 2. Pt not to go >5 days NPO/CL diet only -> (Currently Day 2) 3. Consider prokinetic agent to stimulate GI motility; defer to MD 4. If unable to progress diet initiate nutrition support measures Expected Outcomes/Goals: Nutrition support vs. diet advancement. Plan discussed with: Patient TI [employer] April 05, 2025 06:48
[2025-04-05 08:00] VITALS: PULSE 68
[2025-04-05 09:00] VITALS: BP 123/54; PULSE 68; RESP 16; TEMP 98.3; O2SAT 98
--- NOTE | 2025-04-05 09:33 | DVHPN2 ---
Progress Note Date Seen: April 05, 2025 Medical Necessity Reason Pt with a Central, PICC or Fol: No Subjective Patient reports: No new complaints Other Systems: Patient seen and examined by myself today in follow-up Objective vital signs Vital Sign Date Time Temp Pulse Resp B/P (MAP) Pulse Ox O2 Delivery O2 Flow Rate FiO2 04/05/25 06:15 131/56 04/05/25 05:00 97.8 73 18 94 97.8 04/04/25 20:00 Room Air* 0 21 Total Intake and Output 04/04/25 04/04/25 04/05/25 15:00 23:00 07:00 Intake Total 326 ml 750 ml 1230 ml Output Total 1100 ml 1300 ml Balance 326 ml -350 ml -70 ml medications Current Medications Medications Dose Ordered Sig/Patria Route Start Time Stop Time Status Last Admin Dose Admin Diagnostic Test (Pha) 1 strip IQ4HR 04/01/25 00:00 04/05/25 04:00 1 STRIP Insulin Human Regular IQ4HR SC 04/01/25 00:00 04/05/25 05:10 2 UNITS Dextrose 50 ml UD PRN IV 03/31/25 22:30 Acetaminophen 325 mg Q4HP PRN PO 03/31/25 22:30 Acetaminophen/ Hydrocodone Bitart 1 tab Q4HP PRN PO 03/31/25 22:30 04/04/25 03:34 1 TAB Ondansetron HCl 4 mg Q4HP PRN IV 03/31/25 22:30 04/01/25 16:45 4 MG Morphine Sulfate 2 mg Q4HPRN PRN IV 03/31/25 22:30 04/04/25 08:43 2 MG Nitroglycerin 0.4 mg Q5MINP PRN SL 03/31/25 22:30 04/02/25 03:06 0.4 MG Morphine Sulfate 2 mg Q30M PRN IV 03/31/25 22:30 04/02/25 03:23 2 MG Hydralazine HCl 10 mg Q6HR IV 04/01/25 00:00 04/05/25 06:15 10 MG Levofloxacin/ Dextrose 100 ml @ 100 mls/hr Q48H IV 04/01/25 09:15 04/03/25 08:37 100 MLS/HR Atorvastatin Calcium 20 mg DAILY PO 04/02/25 10:00 04/04/25 11:46 20 MG Gabapentin 300 mg TID PO 04/01/25 22:00 04/05/25 06:14 300 MG Amlodipine Besylate 10 mg DAILY PO 04/02/25 10:00 04/04/25 11:48 10 MG Memantine 10 mg BID PO 04/01/25 22:00 04/04/25 21:45 10 MG Metoprolol Succinate 100 mg DAILY PO 04/02/25 10:00 04/04/25 11:47 100 MG Rivaroxaban 10 mg DAILY PO 04/02/25 10:00 04/04/25 11:49 10 MG Pramipexole Dihydrochloride 0.5 mg DAILY PO 04/02/25 10:00 04/04/25 12:33 0.5 MG Oxycodone/ Acetaminophen 1 tab Q8HR PO 04/01/25 22:30 04/05/25 06:14 1 TAB Oxycodone HCl 5 mg Q8HR PO 04/01/25 22:30 04/05/25 06:14 5 MG Lorazepam 0.5 mg Q8HP PRN IV 04/02/25 04:00 Metoprolol Tartrate 5 mg Q4HPRN PRN IV 04/02/25 16:45 Metoclopramide HCl 10 mg TIDAC PO 04/03/25 17:00 04/05/25 06:44 10 MG Hydroxyzine HCl 20 mg Q8H PO 04/03/25 16:00 04/05/25 01:36 20 MG Lactulose 30 ml Q6HR PO 04/03/25 18:00 04/04/25 00:22 30 ML Examination: LUNGS:Normal, CVS:Normal, MSK:Normal laboratory and microbiology Laboratory Tests 04/04/25 08:52 Test 04/04/25 08:52 Range/Units Serum Glucose 203 H 74-106 mg/dL Microbiology Date/Time Source Procedure Growth Status 03/31/25 14:56 Blood Blood Culture - Preliminary NO GROWTH AFTER 72 HOURS OF INCUBATION. Resulted Problem List/Assessment/Plan Problem List/Assessment/Plan Acute kidney injury superimposed Chronic Kidney Disease stage IIIB secondary hemodynamic mediated Hypokalemia Abdominal pain Dehydration Constipation Diabetes mellitus type COPD Anemia of chronic kidney disease Recommendations Kidney function is improved Increased urine output Strict I&Os I agree with IV fluid hydration KCL replacement Insulin sliding scale Renal diet Check urine protein excretion and urine electrolytes Kidney ultrasound reported within normal limits We will continue to follow up Plan discussed with: Patient My Orders My Orders Orders - HEBERT CONTRERAS MD Procedure Category Date Status Time Urine LAB 04/04/25 Logged Protein/Creatinine Urinalysis LAB 04/04/25 Logged 10:06 Urine Sodium LAB 04/04/25 Logged UNK Dietary Evaluation Review Comments: 1. NPO secondary to ileus 2. Pt not to go >5 days NPO/CL diet only -> (Currently Day 2) 3. Consider prokinetic agent to stimulate GI motility; defer to MD 4. If unable to progress diet initiate nutrition support measures Expected Outcomes/Goals: Nutrition support vs. diet advancement. HEBERT CONTRERAS MD April 05, 2025 09:33
[2025-04-05 11:30] LABS: Basophils # (auto) 0.1 10 ^3/uL (0-0.2); Eosinophils # (auto) 0.4 10 ^3/uL (0-0.8); Hemoglobin 10.1 g/dL (12.2-16.2); Lymphocytes # (auto) 1.7 10 ^3/uL (0.4-5.4); Monocytes # (auto) 0.6 10 ^3/uL (0-1.3); Monocytes % (auto) 7.6 % (0.0-12.0); Neutrophils # (auto) 4.9 10 ^3/uL (1.6-8.6); White Blood Cell 7.6 10^3/uL (4.4-10.8)
[2025-04-05 11:32] LABS: Eosinophils % (auto) 4.8 % (0.0-7.0); Hematocrit 31.2 % (36.0-46.0); Lymphocytes % (auto) 21.9 % (10.0-50.0); Mean Corpuscular Hgb Conc. 32.2 g/dL (32.0-36.0); Mean Corpuscular Volume 80.6 fL (80.0-100.0); Neutrophils % (auto) 64.7 % (37.0-80.0); Platelet Count (auto) 383 10^3/uL (140-450); Red Blood Cells 3.87 10^6/uL (4.0-5.20); Red Cell Distribution Width 15.3 % (11.8-14.3)
[2025-04-05 11:59] LABS: Alanine Aminotransferase 17 U/L (7-40); Anion Gap 9 (5-15); Aspartate Aminotransferase 15 U/L (13-40); BUN/Creatinine Ratio 10.5 (10.0-20.0); Carbon Dioxide 20 mmol/L (20-31); Chloride 102 mmol/L (98-107); Potassium 4.4 mmol/L (3.5-5.1)
[2025-04-05 12:00] LABS: Albumin 2.9 g/dL (3.2-4.8); Alkaline Phosphatase 151 U/L (46-116); Bilirubin, Total 0.2 mg/dL (0.2-1.0); Blood Urea Nitrogen 25 mg/dL (9-23); Calcium 8.5 mg/dL (8.7-10.4); Glucose 319 mg/dL (74-106); Sodium 131 mmol/L (136-145)
--- NOTE | 2025-04-05 12:57 | DVHDS2 ---
Discharge Summary Date of Admission March 31, 2025 at 22:29 Date of Discharge: April 05, 2025 Admitting Diagnosis Acute abdominal pain related to ileus Labs/Diagnostic Data: Laboratory Results Test 04/05/25 11:17 04/05/25 05:05 04/03/25 10:10 04/02/25 04:06 White Blood Count 7.6 10^3/uL (4.4-10.8) Red Blood Count 3.87 10^6/uL (4.0-5.20) Hemoglobin 10.1 g/dL (12.2-16.2) Hematocrit 31.2 % (36.0-46.0) Mean Corpuscular Volume 80.6 fL (80.0-100.0) Mean Corpuscular Hemoglobin 26.0 pg (28.0-32.0) Mean Corpuscular Hemoglobin Concent 32.2 g/dL (32.0-36.0) Red Cell Distribution Width 15.3 % (11.8-14.3) Platelet Count 383 10^3/uL (140-450) Mean Platelet Volume 7.8 fL (6.9-10.8) Neutrophils (%) (Auto) 64.7 % (37.0-80.0) Lymphocytes (%) (Auto) 21.9 % (10.0-50.0) Monocytes (%) (Auto) 7.6 % (0.0-12.0) Eosinophils (%) (Auto) 4.8 % (0.0-7.0) Basophils (%) (Auto) 1.0 % (0.0-2.0) Neutrophils # (Auto) 4.9 10 ^3/uL (1.6-8.6) Lymphocytes # (Auto) 1.7 10 ^3/uL (0.4-5.4) Monocytes # (Auto) 0.6 10 ^3/uL (0-1.3) Eosinophils # (Auto) 0.4 10 ^3/uL (0-0.8) Basophils # (Auto) 0.1 10 ^3/uL (0-0.2) Nucleated Red Blood Cells 0.0 % Sodium Level 131 mmol/L (136-145) Potassium Level 4.4 mmol/L (3.5-5.1) Chloride Level 102 mmol/L (98-107) Carbon Dioxide Level 20 mmol/L (20-31) Anion Gap 9 (5-15) Blood Urea Nitrogen 25 mg/dL (9-23) Creatinine 2.37 mg/dL (0.550-1.02) Glomerular Filtration Rate Calc 22 mL/min (>90) BUN/Creatinine Ratio 10.5 (10.0-20.0) Serum Glucose 319 mg/dL (74-106) Calcium Level 8.5 mg/dL (8.7-10.4) Total Bilirubin 0.2 mg/dL (0.2-1.0) Aspartate Amino Transferase (AST) 15 U/L (13-40) Alanine Aminotransferase (ALT) 17 U/L (7-40) Alkaline Phosphatase 151 U/L (46-116) Total Protein 5.0 g/dL (5.7-8.2) Albumin 2.9 g/dL (3.2-4.8) POC Glucose 156 mg/dl (70-106) Free Thyroxine (T4) Calculated 1.04 ng/dL (0.89-1.76) Magnesium Level 1.9 mg/dL (1.6-2.6) Troponin I High Sensitivity 5 ng/L (</=34) Triglycerides Level 308 mg/dL (< 150) Cholesterol Level 173 mg/dL (< 200) LDL Cholesterol 82 mg/dL (< 100) HDL Cholesterol 36 mg/dL (40-59) Thyroid Stimulating Hormone (TSH) 4.92 uIU/mL (0.55-4.78) Test 03/31/25 15:14 03/31/25 14:56 Urine Color Colorless (Yellow) Urine Clarity Clear (Clear) Urine pH 7.0 (5.0-9.0) Urine Specific [place] 1.005 (1.001-1.035) Urine Protein 2+ (Negative) Urine Ketones Negative (Negative) Urine Blood 1+ /uL (Negative) Urine Nitrite Negative (Negative) Urine Bilirubin Negative (Negative) Urine Urobilinogen Normal mg/dL (Negative) Urine Leukocyte Esterase Negative /uL (Negative) Urine RBC <1 /hpf (0 - 4) Urine Microscopic WBC /HPF (0-5) Urine Squamous Epithelial Cells None seen /hpf (<5) Urine Bacteria None seen /hpf (None Seen) Urine Glucose 4+ mg/dL (Normal) Lactic Acid Level 1.8 mmol/L (0.4-2.0) B-Type Natriuretic Peptide 56.01 pg/mL (0-100) Lipase 22 U/L (12-53) Other Laboratory Tests 04/05/25 11:17 Brief Hx & Hospital Course: 64 y/o F, with a history of CHF, CKF III, COPD, DM, DKA, HTN, and medication noncompliance, is BIBA for 2x month history of abdominal pain and distension, nausea, vomiting, and P/O intolerance. Patient is a difficult historian. She reports worsening symptoms following initial onset. Patient states she was seen at [facility] multiple times and was diagnosed with a spine fracture and cellulitis of her abdominal wall prior to being discharged and placed on oral antibiotics which she states she is currently taking. Per EMS report, patient was found hyperglycemic and hypertensive on scene, with director of healthcare systems reporting that patient has been noncompliant with her medications. For example, pt reportedly finished her 90-day Percocet prescription that was prescribed on 03/16/25. Upon arrival to ED, patient had a blood pressure of 228/123 and a blood glucose of 450. Patient was admitted for acute abdominal pain related to ileus. Patient did undergo small-bowel series which did not show ileus. Patient had multiple bowel movements during hospital stay. Patient's diet was advanced and abdominal pain did improve. Patient has underlying CKD. Patient's home health was resumed. Patient states she has an appointment with associate professor of mathematics Dr. Lebron, patient was advised to follow up for insulin pump and diabetic management. Condition at Discharge: Fair Final Diagnosis/Problems List 1. Hypertensive urgency 2. Ileus 3. Dementia 4. Morbid obesity 5. Hyponatremia 6. DM II with hyperglycemia 7. Leukocytosis, unspecified 8. mild protein deficency Discharge Disposition: Home with Health Services Discharge Instruct/Medications Diet: Consistent carbohydrate Activity: No Restrictions, As Tolerated Follow Up/Referral: PCP within 1 week Discharge Statement: "Patient was advised to return to the ER or call 911 if any headaches, dizziness, shortness of breath, chest pain, abdominal pain, bleeding, fevers, or worsening of medical condition. Patient was counseled about treatment plan, medications, possible side effects, patient�verbalized understanding. All questions were answered to the best of my ability. This discharge took greater then 30 minutes in planning, reviewing documentation, counseling the patient, and discussing with other team members." ASSESSMENT ASSESSMENT Assessment 1. Hypertensive urgency 2. Ileus 3. Dementia 4. Morbid obesity 5. Hyponatremia 6. DM II with hyperglycemia 7. Leukocytosis, unspecified 8. mild protein deficency NIRAJ MCCARTHY CUSTOMER SERVICE SPECIALIST April 05, 2025 12:57
[2025-04-05 13:00] VITALS: BP 114/56; PULSE 71; RESP 18; TEMP 98.5; O2SAT 97
[2025-04-05 14:29] VITALS: BP 114/56; PULSE 71; RESP 18; TEMP 98.5; O2SAT 97
== END 2025-04-05 15:23 | disposition home health service (06) | DRG 389 ==
LOC: EDBD 14:24 → ER 14:37 → OVERFLOW 22:29 → TELE-EAST 04-01 15:25
PROVIDERS: ADMIT Nurse Practitioner; ATTEND Nurse Practitioner
DX: K56.7 Ileus, unspecified (principal); E44.1 Mild protein-calorie malnutrition; E87.1 Hypo-osmolality and hyponatremia; Z68.41 Body mass index [BMI] 40.0-44.9, adult; I13.0 Hypertensive heart and chronic kidney disease with heart failure and stage 1 through stage 4 chronic kidney disease, or unspecified chronic kidney disease; N18.4 Chronic kidney disease, stage 4 (severe); I50.32 Chronic diastolic (congestive) heart failure; I16.0 Hypertensive urgency; E66.01 Morbid (severe) obesity due to excess calories; D72.829 Elevated white blood cell count, unspecified; F03.90 Unspecified dementia, unspecified severity, without behavioral disturbance, psychotic disturbance, mood disturbance, and anxiety; G89.4 Chronic pain syndrome; E87.6 Hypokalemia; E78.5 Hyperlipidemia, unspecified; E11.22 Type 2 diabetes mellitus with diabetic chronic kidney disease; D63.1 Anemia in chronic kidney disease; J44.9 Chronic obstructive pulmonary disease, unspecified; E11.40 Type 2 diabetes mellitus with diabetic neuropathy, unspecified; F32.A Depression, unspecified; Z91.148 Patient's other noncompliance with medication regimen for other reason; Z88.0 Allergy status to penicillin; Z88.3 Allergy status to other anti-infective agents; Z88.7 Allergy status to serum and vaccine; Z91.048 Other nonmedicinal substance allergy status; Z88.2 Allergy status to sulfonamides; Z79.899 Other long term (current) drug therapy; Z79.891 Long term (current) use of opiate analgesic; Z79.1 Long term (current) use of non-steroidal anti-inflammatories (NSAID); Z79.01 Long term (current) use of anticoagulants; Z86.711 Personal history of pulmonary embolism; Z83.3 Family history of diabetes mellitus
CPT/HCPCS: 36415; 71045; 74176; 74250; 76775; 80048; 80053; 80061; 81001; 82962; 83605; 83690; 83735; 83880; 84439; 84443; 84484; 85025; 87040; 93005; 96374; 96375; G0378; J1815; J1956; J2405; J2470